=== PATIENT | male | born 1950 | race Caucasian/White ===

== ENCOUNTER → 2016-10-06 | Outpatient (CLI) | payer OTHER ==
[~2016-10-06] MED LIST: ACET-24 PO; ALLO100T PO; CLC6 PO; COLC0.6T54 PO; CYCL5TAB PO; DOCU-94 PO; ENOX40IN SQ; FEBU40TA PO; GABA-112 PO; HYDR-4079 PO; LEVO1TAB33 PO; METO25TA3 PO; NTRC PO; OXYC1TAB3 PO; PRED10TA PO; RXC5 PO; SULF800T23 PO; ULT/50 PO; WARF10TA4 PO; WARF7.5T4 PO
--- NOTE | 2016-10-06 12:54 | DIAGNOSTIC IMAGING REPORT ---
LEFT KNEE 2 VIEWS CLINICAL HISTORY: Left hip pain. Recent fall. FINDINGS: AP and lateral standing views of the left knee are compared to study dated 12/07/2011. The skeletal structures are osteopenic. No fracture is seen. There is mild degenerative narrowing in the medial and patellofemoral compartments. There are small patellar enthesophytes. A small joint effusion is identified. Prepatellar soft tissue swelling is noted. There is mild atherosclerotic calcification in the popliteal artery. IMPRESSION: 1. Prepatellar soft tissue swelling and small joint effusion. No acute bony abnormality is identified. 2. Osteopenia and mild arthritic change as above. Electronically signed by: Harvey Bunch M.D. 10/06/2016 12:52 PM Dictated Date/Time: 10/06/2016 12:51 PM
== END | disposition home or self-care (01) ==
LOC: C.RADBC 12:15
PROVIDERS: ATTEND Family Medicine
DX: M25.562 Pain in left knee (principal); M85.862 Other specified disorders of bone density and structure, left lower leg; M79.89 Other specified soft tissue disorders

== ENCOUNTER → 2016-12-05 | Outpatient (CLI) | payer OTHER ==
[~2016-12-05] MED LIST changes: +CPR500 PO; +FLV1 PO; +FRRS300 PO; +VTMB12 PO
[2016-12-05 17:01] LABS: BASO % 0.4 %; BASO ABS # 0.06 K/uL (0-0.2); COMPLETE YES; EOS % 1.7 %; HEMATOCRIT 42.4 % (42-52); LYMPH % 16.6 %; LYMPH ABS # 2.43 K/uL (1.2-3.4); MEAN CELL VOLUME 88.7 fL (80-100); MEAN CORPUSCULAR HEMOGLOBIN 29.5 pg (25-34); MEAN CORPUSCULAR HGB CONC 33.3 g/dl (32-36); MEAN PLATELET VOLUME 9.8 fL (7.4-10.4); MONO % 15.4 %; NEUT % 63.9 %; PLATELET COUNT 426 K/uL (130-400); RED BLOOD COUNT 4.78 M/uL (4.7-6.1)
[2016-12-05 17:09] LABS: INR 1.7 (0.9-1.1); PROTHROMBIN TIME (PATIENT) 18.6 SECONDS (9.0-12.0)
[2016-12-05 17:12] LABS: ALT/SGPT 29 U/L (12-78); BLOOD UREA NITROGEN 15 mg/dl (7-18); BUN/CREATININE RATIO 11.3 (10-20); CALCIUM 9.4 mg/dl (8.5-10.1); CARBON DIOXIDE 28 mmol/L (21-32); CHLORIDE 98 mmol/L (98-107); GLUCOSE 107 mg/dl (70-99); POTASSIUM 4.5 mmol/L (3.5-5.1); SODIUM 135 mmol/L (136-145)
[2016-12-05 17:15] LABS: ALB/GLOB RATIO 0.5 (0.9-2); ALKALINE PHOSPHATASE 144 U/L (45-117); AST/SGOT 22 U/L (15-37)
[2016-12-05 17:20] LABS: URINE APPEARANCE TURBID (CLEAR); URINE COLOR DK YELLOW; URINE EPITHELIAL CELL AUTO >30 /lpf (0-5); URINE NITRITE NEG (NEG); URINE PH 5.5 (4.5-7.5); URINE SPECIFIC GRAVITY 1.025 (1.000-1.030); UROBILINOGEN NEG (NEG)
[2016-12-05 17:40] LABS: MANUAL MICROSCOPIC REQUIRED? NO; REVIEW REQ? NO; URINE BILIRUBIN NEG (NEG)
== END | disposition home or self-care (01) ==
LOC: C.LABBC 14:06
PROVIDERS: ATTEND Family Medicine
DX: R35.0 Frequency of micturition (principal); R53.83 Other fatigue; I48.91 Unspecified atrial fibrillation

== ENCOUNTER 2016-12-07 15:17 | Inpatient (IN) | payer OTHER ==
[~2016-12-07] VITALS: Ht 193 cm; Wt 116.0 kg
[~2016-12-07 15:17] MED LIST changes: -ACET-24 PO; -ALLO100T PO; -CLC6 PO; -COLC0.6T54 PO; -CPR500 PO; -CYCL5TAB PO; -DOCU-94 PO; -ENOX40IN SQ; -FEBU40TA PO; -FLV1 PO; -FRRS300 PO; -PRED10TA PO; -RXC5 PO; -SULF800T23 PO; -VTMB12 PO
--- NOTE | 2016-12-07 16:47 | DIAGNOSTIC IMAGING REPORT ---
RIGHT ANKLE 3 VIEWS CLINICAL HISTORY: Right leg pain and swelling. Erythema. FINDINGS: 3 views of the right ankle are compared to study dated 03/17/2009. The skeletal structures are osteopenic. No fracture is seen. The ankle mortise is intact. Mild degenerative spurring is seen along the dorsal aspect of the tarsal bones. Soft tissue edema is present in the right lower extremity. An ankle joint effusion is suspected. IMPRESSION: Soft tissue swelling and joint effusion. No acute bony abnormality is identified in the right ankle. Electronically signed by: Harvey Bunch M.D. 12/07/2016 4:46 PM Dictated Date/Time: 12/07/2016 4:45 PM
[2016-12-07 17:20] LABS: BASO % 0.3 %; BASO ABS # 0.04 K/uL (0-0.2); COMPLETE YES; EOS % 1.8 %; HEMATOCRIT 40.6 % (42-52); IG% 1.2 %; LYMPH ABS # 1.98 K/uL (1.2-3.4); MEAN CELL VOLUME 89.2 fL (80-100); MEAN CORPUSCULAR HEMOGLOBIN 31.2 pg (25-34); MEAN PLATELET VOLUME 9.5 fL (7.4-10.4); MONO % 13.5 %; NEUT % 70.2 %; PLATELET COUNT 427 K/uL (130-400); RED BLOOD COUNT 4.55 M/uL (4.7-6.1); WHITE BLOOD COUNT 15.21 K/uL (4.8-10.8)
[2016-12-07 17:25] LABS: INR 2.4 (0.9-1.1); PARTIAL THROMBOPLASTIN RATIO 1.5; PROTHROMBIN TIME (PATIENT) 26.1 SECONDS (9.0-12.0)
[2016-12-07 17:51] LABS: ALB/GLOB RATIO 0.5 (0.9-2); BUN/CREATININE RATIO 11.6 (10-20); CALCIUM 10.2 mg/dl (8.5-10.1); CREATININE 1.4 mg/dl (0.60-1.40); MAGNESIUM 2.3 mg/dl (1.8-2.4); POTASSIUM 4.1 mmol/L (3.5-5.1); URIC ACID 5.7 mg/dl (2.6-7.2)
--- NOTE | 2016-12-07 18:07 | EMERGENCY ROOM VISIT NOTE ---
History First contact with patient: 15:56 Chief Complaint: SWELLING TO EXTREMITY Stated Complaint: SWELLING TO RT FOOT AND CALF History of Present Illness The patient is a 66 year old male who presents to the Emergency Department by private vehicle for evaluation of his RIGHT ankle and calf swelling. 2 weeks ago, the patient was admitted at [facility] in [place] for a hernia repair. He had an open inguinal hernia repaired without issue. He was discharged the next day and had no follow-up issues. This past he was seen at his orthopedist, Dr. Rosales, and interestingly, he reports feeling tired and rundown. He had no specific symptoms, just felt very sleepy, drowsy, tired. He had no headaches, dizziness, light headedness, blurred vision, double vision , nausea, or chest pain symptoms. He ended up following up on Monday with his primary care provider. He had blood work performed. He had elevation of his white blood cell count and was called in an antibiotic. He has taken 3 doses of Levaquin. After taking her first dose of Levaquin he developed redness and pain to the RIGHT ankle. He has had swelling with pain radiating up the back of his calf. He reports increasing pain with ambulation. He has had subjective fevers. He denies any numbness or tingling into his toes. He does report a history of gout. He has never had Levaquin that he was able to remember. The patient denies any current headaches, dizziness, lightheadedness , chest pain, palpitations, short of breath, abdominal pain, incisional redness , incisional drainage, hematuria, or dysuria. He rates his current discomfort as a 9/10. He is tried nothing [id number] for his symptoms. The patient also reports a significant past medical history for pulmonary embolism in 2011. He is currently anticoagulated with Coumadin. His medications were discontinued prior to the procedure, however, and he did not use his Lovenox as he was unable to afford the prescription. He did continue to take his Coumadin though. Review of Systems A complete 10-point Review of Systems was discussed with the patient, with pertinent positives and negatives listed in the History of Present Illness. All remaining Review of Systems questions can be considered negative unless otherwise specified. Past Medical/Surgical History Medical Problems: (1) LLE DVT, hypoxia (2) svt Social History Smoking Status: Never Smoker Smokeless Tobacco Use: No Alcohol Use: none Drug Use: none Marital Status: Housing Status: lives with family Occupation Status: employed Current/Historical Medications Scheduled Gabapentin (Neurontin), 300 MG PO HS Levofloxacin (Levaquin), 500 MG PO DAILY Metoprolol Succinate (Toprol Xl), 25 MG PO BID Oxycodone Ir (Roxicodone Ir), 5 MG PO TID Warfarin Sod (Jantoven), 7.5 MG PO 5XWK Warfarin Sod (Jantoven), 10 MG PO 2XWK Scheduled PRN Hydrocodone/Acetaminophen 10MG/325MG (Dauphin 10MG/325MG), 1-2 TABS PO Q6H PRN for Pain Allergies Coded Allergies: Iron (Verified Adverse Reaction, Unknown, TACHYCARDIA, 12/07/16) Physical Exam Vital Signs Date Time Temp Pulse Resp B/P Pulse Ox O2 Delivery O2 Flow Rate FiO2 12/07/16 18:46 79 16 117/72 97 Room Air 12/07/16 15:21 36.3 94 18 130/72 98 Room Air Pain Rating (0-10): 9 Physical Exam VITAL SIGNS - Vital signs and nursing notes were reviewed. GENERAL - 66-year-old male appearing his stated age and in noticeable discomfort throughout the exam. HEART - RRR w/ normal S1/S2. No murmurs, rubs, or gallops appreciated. LUNGS - CTA bilaterally. No wheezes, rales, or rhonchi appreciated. MUSCULOSKELETAL - RIGHT ankle with Moderate erythema and edema overlying the lateral malleolus and extending up the posterior portion of the calf over the Achilles. Full range of motion of the RIGHT foot and ankle appreciated with +5/ 5 strength noted bilaterally. NEUROLOGIC/VASCULAR - Neurovascularly intact distally with +3/5 dorsalis pedis pulses palpated bilaterally. Normal sensation to light and sharp touch appreciated distally. Medical Decision & Procedures ER Provider Diagnostic Interpretation: Radiological imaging and reports were reviewed by myself. Radiologist's Interpretation as follows: RIGHT ANKLE 3 VIEWS CLINICAL HISTORY: Right leg pain and swelling. Erythema. FINDINGS: 3 views of the right ankle are compared to study dated 03/17/2009. The skeletal structures are osteopenic. No fracture is seen. The ankle mortise is intact. Mild degenerative spurring is seen along the dorsal aspect of the tarsal bones. Soft tissue edema is present in the right lower extremity. An ankle joint effusion is suspected. IMPRESSION: Soft tissue swelling and joint effusion. No acute bony abnormality is identified in the right ankle. RIGHT LOWER EXTREMITY ULTRASOUND CLINICAL HISTORY: Right lower extremity pain and swelling. Evaluate Achilles. COMPARISON STUDY: No previous studies for comparison. FINDINGS: Sonography of the right Achilles tendon demonstrated no abnormality. A similar appearance of the left Achilles tendon was noted. No mass or fluid is identified. IMPRESSION: No sonographic abnormality of the right Achilles tendon identified. RIGHT LOWER EXTREMITY VENOUS DOPPLER CLINICAL HISTORY: Right lower extremity pain, swelling and redness. COMPARISON STUDY: Bilateral lower extremity venous Doppler June 02, 2012. TECHNIQUE: Sonography of the deep venous system of the right lower extremity was performed. Compression and augmentation were evaluated. FINDINGS: There was deep venous thrombus within the right femoral and popliteal veins. This thrombus is age indeterminate. There was also thrombus within the right posterior tibial vein. IMPRESSION: Deep venous thrombus within the right femoral, popliteal and posterior tibial veins. Laboratory Results 12/07/16 16:50 Red Blood Count 4.55, Mean Corpuscular Volume 89.2, Mean Corpuscular Hemoglobin 31.2, Mean Corpuscular Hemoglobin Concent 35.0, Mean Platelet Volume 9.5, Neutrophils (%) (Auto) 70.2, Lymphocytes (%) (Auto) 13.0, Monocytes (%) (Auto) 13.5, Eosinophils (%) (Auto) 1.8, Basophils (%) (Auto) 0.3, Neutrophils # (Auto ) 10.68, Lymphocytes # (Auto) 1.98, Monocytes # (Auto) 2.06, Eosinophils # (Auto ) 0.27, Basophils # (Auto) 0.04 12/07/16 16:50 Test 12/07/16 16:50 12/07/16 17:03 12/07/16 18:30 White Blood Count 15.21 K/uL (4.8-10.8) Red Blood Count 4.55 M/uL (4.7-6.1) Hemoglobin 14.2 g/dL (14.0-18.0) Hematocrit 40.6 % (42-52) Mean Corpuscular Volume 89.2 fL (80-100) Mean Corpuscular Hemoglobin 31.2 pg (25-34) Mean Corpuscular Hemoglobin Concent 35.0 g/dl (32-36) Platelet Count 427 K/uL (130-400) Mean Platelet Volume 9.5 fL (7.4-10.4) Neutrophils (%) (Auto) 70.2 % Lymphocytes (%) (Auto) 13.0 % Monocytes (%) (Auto) 13.5 % Eosinophils (%) (Auto) 1.8 % Basophils (%) (Auto) 0.3 % Neutrophils # (Auto) 10.68 K/uL (1.4-6.5) Lymphocytes # (Auto) 1.98 K/uL (1.2-3.4) Monocytes # (Auto) 2.06 K/uL (0.11-0.59) Eosinophils # (Auto) 0.27 K/uL (0-0.5) Basophils # (Auto) 0.04 K/uL (0-0.2) RDW Standard Deviation 42.4 fL (36.4-46.3) RDW Coefficient of Variation 13.0 % (11.5-14.5) Immature Granulocyte % (Auto) 1.2 % Immature Granulocyte # (Auto) 0.18 K/uL (0.00-0.02) Erythrocyte Sedimentation Rate 72 mm/hr (0-14) Prothrombin Time 26.1 SECONDS (9.0-12.0) Prothromb Time International Ratio 2.4 (0.9-1.1) Activated Partial Thromboplast Time 39.4 SECONDS (21.0-31.0) Partial Thromboplastin Ratio 1.5 Anion Gap 8.0 mmol/L (3-11) Est Creatinine Clear Calc Drug Dose 71.3 ml/min Estimated GFR () 59.8 Estimated GFR (Non- 51.6 BUN/Creatinine Ratio 11.6 (10-20) Uric Acid 5.7 mg/dl (2.6-7.2) Calcium Level 10.2 mg/dl (8.5-10.1) Magnesium Level 2.3 mg/dl (1.8-2.4) Total Bilirubin 0.5 mg/dl (0.2-1) Aspartate Amino Transf (AST/SGOT) 18 U/L (15-37) Alanine Aminotransferase (ALT/SGPT) 25 U/L (12-78) Alkaline Phosphatase 133 U/L (45-117) C-Reactive Protein 17.00 mg/dl (0-0.29) Total Protein 8.2 gm/dl (6.4-8.2) Albumin 2.7 gm/dl (3.4-5.0) Globulin 5.5 gm/dl (2.5-4.0) Albumin/Globulin Ratio 0.5 (0.9-2) Lyme Disease IgG Antibody NEG (NEG) Bedside Lactic Acid Venous 1.21 mmol/L (0.90-1.70) Urine Color DK YELLOW Urine Appearance CLEAR (CLEAR) Urine pH 5.0 (4.5-7.5) Urine Specific [place] 1.028 (1.000-1.030) Urine Protein 1+ (NEG) Urine Glucose (UA) NEG (NEG) Urine Ketones NEG (NEG) Urine Occult Blood 2+ (NEG) Urine Nitrite NEG (NEG) Urine Bilirubin NEG (NEG) Urine Urobilinogen NEG (NEG) Urine Leukocyte Esterase NEG (NEG) Urine WBC (Auto) 1-5 /hpf (0-5) Urine RBC (Auto) 5-10 /hpf (0-4) Urine Hyaline Casts (Auto) 1-5 /lpf (0-5) Urine Epithelial Cells (Auto) 10-20 /lpf (0-5) Urine Bacteria (Auto) NEG (NEG) Medications Administered Medications (Trade) Dose Ordered Sig/Gege Route Start Time Stop Time Status Last Admin Dose Admin Sodium Chloride (Nss 1000ml) 1,000 ml @ 200 mls/hr Q5H STAT IV 12/07/16 18:19 12/07/16 20:11 DC 12/07/16 18:41 200 MLS/HR Vancomycin HCl (Vancomycin 1gm/ 270ml Nss) 1 gm NOW STAT IV 12/07/16 18:19 12/07/16 18:23 DC 12/07/16 18:42 1 GM Ceftriaxone Sodium (Rocephin Inj) 1 gm NOW STAT IV 12/07/16 18:24 12/07/16 18:25 DC 12/07/16 18:40 1 GM ED Course Patient was seen and evaluated by myself. Labs were drawn, saline lock in place. Patient was hydrated with normal saline at a rate of 200 mL per hour. X -ray of the ankle and ultrasound of the RIGHT lower extremity were obtained. Laboratory results demonstrate a moderate leukocytosis of greater than 15,000. The patient is not anemic. His ESR and CRP are significantly elevated. Point- of-care lactic acid was negative. INR was therapeutic at 2.4. Lyme serology was equivocally positive. Patient was reevaluated. Imaging results above. Laboratory results and imaging studies were reviewed with the patient who acknowledges understanding. He was placed on IV Rocephin as well as IV vancomycin. Case was discussed with my attending physician who had apparently evaluated the patient and agrees with diagnostic approach treatment plan. CT of the chest was obtained. [facility]. Patient admitted in stable condition. Medical Decision Given the patient's presentation and stated complaint, I did elect to perform the above-mentioned workup. The patient resents today with pain, redness, and swelling to the RIGHT ankle and Achilles area. My diagnosis, concern was certainly for acute cellulitis as well as septic arthritis. In addition, I question if the patient was experiencing an acute tendinopathy from Levaquin use. Patient did have a moderate leukocytosis as well as elevation of ESR and CRP. Uric acid is not elevated. He does have small joint effusion. Lyme's complete positive. The patient will be treated with IV vancomycin as well as Rocephin to cover MRSA as well as typical sterile floor and Lyme. He was found to have a large DVT. Because of this, a CTA of the chest was obtained. He is currently anticoagulated, however. Of concern, the patient was drowsy and tired over the first few days of the week. The question is if the patient was acutely hypoxic secondary to PE after surgical intervention. Regardless, the patient will be admitted for further evaluation and management. He has been on antibiotics without relief of symptoms over the last few days. Patient was admitted for failed outpatient management. Patient admitted in stable condition. In the evaluation and treatments patient, the following differential diagnoses were considered: Cellulitis, dermatitis, septic arthritis, foreign body, PE, amongst others. Impression Primary Impression: Cellulitis of right ankle Additional Impressions: DVT, lower extremity Positive Lyme disease serology Departure Information Dispostion Admitted as an inpatient Condition GOOD Referrals Surinder Fagna D.O.Int.Med. (PCP) Patient Instructions My [facility] Problem Qualifiers Additional Impressions: DVT, lower extremity Affected thrombotic vein of extremity: unspecified vein of extremity Laterality: right Chronicity: acute Qualified Codes: I82.401 - Acute embolism and thrombosis of unspecified deep veins of right lower extremity
--- NOTE | 2016-12-07 18:08 | DIAGNOSTIC IMAGING REPORT ---
RIGHT LOWER EXTREMITY ULTRASOUND CLINICAL HISTORY: Right lower extremity pain and swelling. Evaluate Achilles. COMPARISON STUDY: No previous studies for comparison. FINDINGS: Sonography of the right Achilles tendon demonstrated no abnormality. A similar appearance of the left Achilles tendon was noted. No mass or fluid is identified. IMPRESSION: No sonographic abnormality of the right Achilles tendon identified. Electronically signed by: Farhat Jonas M.D. 12/07/2016 6:06 PM Dictated Date/Time: 12/07/2016 6:06 PM
[2016-12-07 18:15] LABS: LYME DISEASE AB IGG NEG (NEG); LYME DISEASE AB IGM EQUIVOCAL (NEG)
[2016-12-07] MEDS ORDERED: SODIUM CHLORIDE 0.9% 1000ML 1,000 ML IV STA (18:19)
[2016-12-07] MEDS ORDERED: VANCOMYCIN 1GM/270ML NSS IV STA (18:19)
[2016-12-07] MEDS ORDERED: CEFTRIAXONE SOD INJ 1 GM ADDVIAL IV STA (18:24)
[2016-12-07 18:52] LABS: URINE APPEARANCE CLEAR (CLEAR); URINE BILIRUBIN NEG (NEG); URINE COLOR DK YELLOW; URINE NITRITE NEG (NEG); URINE SPECIFIC GRAVITY 1.028 (1.000-1.030); UROBILINOGEN NEG (NEG); ZZUR CULT IF INDIC CLEAN CATCH NO
[2016-12-07 18:54] LABS: MANUAL MICROSCOPIC REQUIRED? NO; REVIEW REQ? NO
[2016-12-07] MEDS ORDERED: POLYETHYLENE (MIRALAX) 17 GM PACK PO PRN (19:00)
[2016-12-07] MEDS ORDERED: ONDANSETRON INJ 2 MG/ML 2 ML VIAL IV PRN (19:00)
[2016-12-07] MEDS ORDERED: ACETAMINOPHEN 325 MG TAB PO PRN (19:00)
[2016-12-07] MEDS ORDERED: OPTIRAY 320 IV PRN (19:00)
[2016-12-07] MEDS ORDERED: TRAMADOL HCL 50 MG TAB PO PRN (19:00)
[2016-12-07] MEDS ORDERED: HYDROCODONE/ACETAMI 10/325 TAB PO PRN (19:00)
[2016-12-07] MEDS: OXYCODONE HCL IR 5 MG TAB (IMMEDIATE RELEASE) PO SCH (20:00)
[2016-12-07] MEDS: COLCHICINE 0.6 MG TAB PO SCH (20:00)
[2016-12-07] MEDS: METOPROLOL SUCC 25MG EXT REL TAB PO SCH (20:00)
--- NOTE | 2016-12-07 20:02 | DIAGNOSTIC IMAGING REPORT ---
CT ANGIOGRAPHY OF THE CHEST, PULMONARY EMBOLUS PROTOCOL CLINICAL HISTORY: Right lower extremity swelling. COMPARISON STUDY: Chest CT January 12, 2012. TECHNIQUE: Following IV administration of Optiray-320, helical axial images of the chest were obtained utilizing the pulmonary embolus protocol. Maximal intensity projections and sagittal and coronal reformats were viewed on an independent 3D workstation. IV contrast was administered without complication. CT DOSE: 873.47 mGy.cm FINDINGS: This exam is significantly compromised by respiratory motion artifact. No central or lobar pulmonary emboli are identified. The segmental and subsegmental vessels are suboptimally assessed due to respiratory motion. The heart is mildly enlarged. Mild dilatation of the ascending aorta is unchanged since exam of January 12, 2012. The ascending aorta measures 4.4 cm. There is no dissection within the thoracic aorta. There is no thoracic lymphadenopathy. Moderate to marked elevation of the left hemidiaphragm is noted with a small hiatal hernia. Ground glass opacities favor atelectasis. Lungs are suboptimally assessed due to respiratory motion. There is no pneumothorax or pleural effusion. IMPRESSION: 1. No pulmonary emboli identified although exam moderately compromised by respiratory motion. 2. Moderate to marked elevation of the left hemidiaphragm. 3. Ground glass opacities which favor atelectasis. 4. Stable moderate cardiomegaly and mild dilatation of the ascending aorta. No thoracic aortic dissection. Electronically signed by: Farhat Jonas M.D. 12/07/2016 8:01 PM Dictated Date/Time: 12/07/2016 7:55 PM
--- NOTE | 2016-12-07 20:05 | Pharmacy Progress Note ---
Pharmacy Antibiotic Consult Date of Service: Dec 07, 2016. Pharmacy Dosing Scope Pharmacy is consulted to initiate Vancomycin IV dosing therapy, order appropriate labs and adjust drug dose/frequency. Subjective The patient is a 66 year old male admitted on 12/07/16 with swelling of right foot/calf. Objective Height (Feet): 6 Height (Inches): 4.00 Weight (Kilograms): 116.000 Lab Results (24hrs): Laboratory Tests Test 12/07/16 16:50 BUN/Creatinine Ratio 11.6 Blood Urea Nitrogen 16 mg/dl Creatinine 1.40 mg/dl White Blood Count 15.21 K/uL Red Blood Count 4.55 M/uL Hemoglobin 14.2 g/dL Hematocrit 40.6 % Mean Corpuscular Volume 89.2 fL Mean Corpuscular Hemoglobin 31.2 pg Mean Corpuscular Hemoglobin Concent 35.0 g/dl Platelet Count 427 K/uL Mean Platelet Volume 9.5 fL Neutrophils (%) (Auto) 70.2 % Lymphocytes (%) (Auto) 13.0 % Monocytes (%) (Auto) 13.5 % Eosinophils (%) (Auto) 1.8 % Basophils (%) (Auto) 0.3 % Neutrophils # (Auto) 10.68 K/uL Lymphocytes # (Auto) 1.98 K/uL Monocytes # (Auto) 2.06 K/uL Eosinophils # (Auto) 0.27 K/uL Basophils # (Auto) 0.04 K/uL Micro Results: Item Value Date Time Blood Culture Received 12/07/16 1841 Blood Pending Blood Culture Received 12/07/16 1835 Blood Pending Recent Pertinent Medications Item Value Date Time Ceftriaxone Sodium 1 gm 12/08/16 0900 (Rocephin Inj) DAILY/IV Assessment & Plan ASSESSMENT: * 66 yo M presents with right ankle/ calf swelling * Pt recently was at [facility] for hernia repair without complication * On Monday he had follow-up labs drawn which showed increase in WBC- he was initiated on Levaquin * After one dose he reports presenting symptoms (ankle/calf swelling); he has taken a total of three doses [employer]ELOPER * He has been initiated on broad spectrum antibiotics: Vancomycin and Zosyn IV * Blood cultures pending PLAN: * Vancomycin 1000 mg IV X 1 given in ED (not sufficient loading dose) * Initiate maintenance dosing immediately upon admission to the floor * Vancomycin 1750 mg IV every 12 hours * Goal trough level estimate: between 15 - 20 mcg/mL. (cellulitis- r/o systemic infection with blood cultures- if so, aim for ~15 mcg/mL) * A trough level has been ordered for: prior to the 4th overall dose-a dose prior to steady state. Pharmacy will continue to follow and will adjust dose/frequency as necessary. Thank you
[2016-12-07] MEDS: VANCOMYCIN INJ 1,750 MG in SODIUM CHLORIDE 0.9% 500ML 500 ML IV SCH (20:42)
[2016-12-07] MEDS: GABAPENTIN 300 MG CAP PO SCH (22:12)
--- NOTE | 2016-12-07 22:37 | History and Physical ---
History & Physical Date & Time of Service: Dec 07, 2016 at 22:26 Chief Complaint: Lle Dvt, Hypoxia Primary Care Physician: Surinder Fagan D.O.Int.Med. History of Present Illness Source: patient The patient is a 66-year-old male comes emergency department with complaint of right ankle and calf swelling, pain and redness. He underwent a hernia repair at [facility] 2 weeks ago without incident. Then saw his orthopedist Dr. Rosales 6 days ago for possible future hip surgery. He saw his PCP 2 days ago for symptoms of being very sleepy, drowsy and tired, had laboratory showing elevated white blood cell count, and was started on oral Levaquin which she has taken 3 doses so far. He first noticed pain in his right ankle after taking the Levaquin first dose. Has worsened since that time he's had a pulmonary embolism in 2011 which is currently on Coumadin. The Coumadin was discontinued prior to his procedure 2 weeks ago, and did not have a Lovenox bridge after surgery, but did resume his Coumadin. Social History Smoking Status: Never Smoker Smokeless Tobacco Use: No Drug Use: none Marital Status: Housing status: lives with family Occupational Status: employed Immunizations History of Influenza Vaccine: N/A History of Tetanus Vaccine?: No History of Pneumococcal: No History of Hepatitis B Vaccine: Unknown Allergies Coded Allergies: Iron (Verified Adverse Reaction, Unknown, TACHYCARDIA, 12/07/16) Home Medications Scheduled Gabapentin (Neurontin), 300 MG PO HS Levofloxacin (Levaquin), 500 MG PO DAILY Metoprolol Succinate (Toprol Xl), 25 MG PO BID Oxycodone Ir (Roxicodone Ir), 5 MG PO TID Warfarin Sod (Jantoven), 7.5 MG PO 5XWK Warfarin Sod (Jantoven), 10 MG PO 2XWK Scheduled PRN Hydrocodone/Acetaminophen 10MG/325MG ([place] 10MG/325MG), 1-2 TABS PO Q6H PRN for Pain Review of Systems The patient denies chest pain, palpitations, shortness of breath, cough, lower extremity swelling, vision change, hearing change, sore throat, fevers, chills, sweats, vomiting, abdominal pain, pelvic pain, blood in urine or stool, dysuria , urinary frequency or urgency, lightheadedness, dizziness, headache, memory loss, rash, abnormal bruising or bleeding, imbalance, focal weakness, numbness or tingling in arms, back or neck pain, night sweats, or allergy symptoms. The review of systems is otherwise negative other than for that already noted above, and at least 10 systems have been reviewed. Physical Exam Vital Signs Date Time Temp Pulse Resp B/P Pulse Ox O2 Delivery O2 Flow Rate FiO2 12/07/16 19:32 36.3 79 16 117/72 97 12/07/16 18:46 79 16 117/72 97 Room Air 12/07/16 15:21 36.3 94 18 130/72 98 Room Air The patient is awake, well-developed and adequately nourished, alert and oriented 3, normocephalic and atraumatic, lying in bed and in no acute distress. HEENT--PERRL, EOMI, mucous membranes and oropharynx dry. Neck--supple, no JVD or bruits, thyroid normal, trachea midline, no adenopathy. Heart--normal S1 and S2, no extra beats, no murmurs, rubs or gallops. Lungs--clear bilaterally with good air movement, no respiratory distress, no accessory muscle use. Abdomen--normal bowel sounds and soft, nontender and nondistended, no hernias or masses, no organomegaly. Extremities--left lower extremity no cyanosis, clubbing or edema. There are good distal pulses b/l. Right lower extremity about 1-1/2 times increase in diameter of, but no pitting edema pretibially. Right ankle with moderate erythema, pain to palpation and warmth and 2+ pitting edema. Dermatologic--normal skin turgor, normal color, warm and dry, no abnormal lymph nodes, no rash, Except as above. Neurologic--cranial nerves II through XII grossly intact, motor and sensory examination normal. Rheumatologic--normal range of motion, nontender, muscles and joints. Except for right ankle with decreased flexion and extension. Psychiatric--normal affect. Diagnostics Laboratory Results Results Past 24 Hours Test 12/07/16 16:50 12/07/16 17:03 12/07/16 18:30 Range/Units White Blood Count 15.21 4.8-10.8 K/uL Red Blood Count 4.55 4.7-6.1 M/uL Hemoglobin 14.2 14.0-18.0 g/dL Hematocrit 40.6 42-52 % Mean Corpuscular Volume 89.2 80-100 fL Mean Corpuscular Hemoglobin 31.2 25-34 pg Mean Corpuscular Hemoglobin Concent 35.0 32-36 g/dl Platelet Count 427 130-400 K/uL Mean Platelet Volume 9.5 7.4-10.4 fL Neutrophils (%) (Auto) 70.2 % Lymphocytes (%) (Auto) 13.0 % Monocytes (%) (Auto) 13.5 % Eosinophils (%) (Auto) 1.8 % Basophils (%) (Auto) 0.3 % Neutrophils # (Auto) 10.68 1.4-6.5 K/uL Lymphocytes # (Auto) 1.98 1.2-3.4 K/uL Monocytes # (Auto) 2.06 0.11-0.59 K/uL Eosinophils # (Auto) 0.27 0-0.5 K/uL Basophils # (Auto) 0.04 0-0.2 K/uL RDW Standard Deviation 42.4 36.4-46.3 fL RDW Coefficient of Variation 13.0 11.5-14.5 % Immature Granulocyte % (Auto) 1.2 % Immature Granulocyte # (Auto) 0.18 0.00-0.02 K/uL Erythrocyte Sedimentation Rate 72 0-14 mm/hr Prothrombin Time 26.1 9.0-12.0 SECONDS Prothromb Time International Ratio 2.4 0.9-1.1 Activated Partial Thromboplast Time 39.4 21.0-31.0 SECONDS Partial Thromboplastin Ratio 1.5 Sodium Level 135 136-145 mmol/L Potassium Level 4.1 3.5-5.1 mmol/L Chloride Level 100 98-107 mmol/L Carbon Dioxide Level 27 21-32 mmol/L Anion Gap 8.0 3-11 mmol/L Blood Urea Nitrogen 16 7-18 mg/dl Creatinine 1.40 0.60-1.40 mg/dl Est Creatinine Clear Calc Drug Dose 71.3 ml/min Estimated GFR () 59.8 Estimated GFR (Non- 51.6 BUN/Creatinine Ratio 11.6 10-20 Random Glucose 108 70-99 mg/dl Uric Acid 5.7 2.6-7.2 mg/dl Calcium Level 10.2 8.5-10.1 mg/dl Magnesium Level 2.3 1.8-2.4 mg/dl Total Bilirubin 0.5 0.2-1 mg/dl Aspartate Amino Transf (AST/SGOT) 18 15-37 U/L Alanine Aminotransferase (ALT/SGPT) 25 12-78 U/L Alkaline Phosphatase 133 45-117 U/L C-Reactive Protein 17.00 0-0.29 mg/dl Total Protein 8.2 6.4-8.2 gm/dl Albumin 2.7 3.4-5.0 gm/dl Globulin 5.5 2.5-4.0 gm/dl Albumin/Globulin Ratio 0.5 0.9-2 Lyme Disease IgG Antibody NEG NEG Lyme Disease IgM Antibody EQUIVOCAL NEG Bedside Lactic Acid Venous 1.21 0.90-1.70 mmol/L Urine Color DK YELLOW Urine Appearance CLEAR CLEAR Urine pH 5.0 4.5-7.5 Urine Specific [place] 1.028 1.000-1.030 Urine Protein 1+ NEG Urine Glucose (UA) NEG NEG Urine Ketones NEG NEG Urine Occult Blood 2+ NEG Urine Nitrite NEG NEG Urine Bilirubin NEG NEG Urine Urobilinogen NEG NEG Urine Leukocyte Esterase NEG NEG Urine WBC (Auto) 1-5 0-5 /hpf Urine RBC (Auto) 5-10 0-4 /hpf Urine Hyaline Casts (Auto) 1-5 0-5 /lpf Urine Epithelial Cells (Auto) 10-20 0-5 /lpf Urine Bacteria (Auto) NEG NEG Microbiology Results 12/07/16 Blood Culture, Received Pending 12/07/16 Blood Culture, Received Pending Diagnostic Radiology RIGHT LOWER EXTREMITY VENOUS DOPPLER CLINICAL HISTORY: Right lower extremity pain, swelling and redness. COMPARISON STUDY: Bilateral lower extremity venous Doppler June 02, 2012. TECHNIQUE: Sonography of the deep venous system of the right lower extremity was performed. Compression and augmentation were evaluated. FINDINGS: There was deep venous thrombus within the right femoral and popliteal veins. This thrombus is age indeterminate. There was also thrombus within the right posterior tibial vein. IMPRESSION: Deep venous thrombus within the right femoral, popliteal and posterior tibial veins. Electronically signed by: Farhat Jonas M.D. 12/07/2016 6:05 PM Dictated Date/Time: 12/07/2016 6:03 PM The status of this report is Signed. Draft = Not yet reviewed or approved by Radiologist. Signed = Reviewed and approved by Radiologist. Patient Name: SHARYN SALEH JR Unit Number: [id number] Dictated: 12/07/161644 Transcribed: 12/07/161644 EV Printed Date/Time: [~ rep prt dt]/[~ rep prt tm] [~ rep ct labl] - [~ rep ct ivnm] [facility] [place] [place] [address] Dictated: 12/07/161644 Transcribed: 12/07/161644 EV Printed Date/Time: [~ rep prt dt]/[~ rep prt tm] [~ rep ct labl] - [~ rep ct ivnm] CLINICAL HISTORY: Right leg pain and swelling. Erythema. FINDINGS: 3 views of the right ankle are compared to study dated 03/17/2009. The skeletal structures are osteopenic. No fracture is seen. The ankle mortise is intact. Mild degenerative spurring is seen along the dorsal aspect of the tarsal bones. Soft tissue edema is present in the right lower extremity. An ankle joint effusion is suspected. IMPRESSION: Soft tissue swelling and joint effusion. No acute bony abnormality is identified in the right ankle. Electronically signed by: Harvey Bunch M.D. 12/07/2016 4:46 PM Dictated Date/Time: 12/07/2016 4:45 PM The status of this report is Signed. Draft = Not yet reviewed or approved by Radiologist. Signed = Reviewed and approved by Radiologist. <AttendingPhy></AttendingPhy> <FamilyPhy>Surinder Fagan D.O.Int.Med.</ FamilyPhy> <PrimaryPhy>Surinder Fagan D.O.Int.Med.</PrimaryPhy> <UnitNumber> [id number]</UnitNumber> <VisitNumber>[id number]</VisitNumber> <PatientName> SHARYN SALEH </PatientName> <DateOfBirth>1950</DateOfBirth> < Location>[facility]</Location> <ServiceDate>12/07/16</ServiceDate> <MNE>ESINDI</MNE> <OrderingPhy>Jhoana, Trever D PA-C</OrderingPhy> <OrderingPhyMNE>f rep ord dr puckett</ OrderingPhyMNE> <DictatingPhyMNE>f rep dict dr puckett</DictatingPhyMNE> <CCListMNE> f rep ct mne</CCListMNE> <AdmittingPhyMNE>f pt admit dr puckett</AdmittingPhyMNE> < AttendingPhyMNE>f pt attend dr puckett</AttendingPhyMNE> <ConsultingPhyMNE>f pt consult dr puckett</ConsultingPhyMNE> <FamilyPhyMNE>f pt fam dr puckett</FamilyPhyMNE> <OtherPhyMNE>f pt other dr puckett</OtherPhyMNE> < PrimaryPhyMNE>f pt prim care dr puckett</PrimaryPhyMNE> <ReferringPhyMNE>f pt referring dr puckett</ReferringPhyMNE> Patient Name: SHARYN SALEH JR Unit Number: [id number] Dictated: 12/07/161805 Transcribed: 12/07/161805 JA Printed Date/Time: [~ rep prt dt]/[~ rep prt tm] [~ rep ct labl] - [~ rep ct ivnm] [facility] Radiology Department [place], [facility]03 Dictated: 12/07/161805 Transcribed: 12/07/161805 JA Printed Date/Time: [~ rep prt dt]/[~ rep prt tm] [~ rep ct labl] - [~ rep ct ivnm] [~ rep ct add3]] RIGHT LOWER EXTREMITY ULTRASOUND CLINICAL HISTORY: Right lower extremity pain and swelling. Evaluate Achilles. COMPARISON STUDY: No previous studies for comparison. FINDINGS: Sonography of the right Achilles tendon demonstrated no abnormality. A similar appearance of the left Achilles tendon was noted. No mass or fluid is identified. IMPRESSION: No sonographic abnormality of the right Achilles tendon identified. Electronically signed by: Farhat Jonas M.D. 12/07/2016 6:06 PM Dictated Date/Time: 12/07/2016 6:06 PM The status of this report is Signed. Draft = Not yet reviewed or approved by Radiologist. Signed = Reviewed and approved by Radiologist. <AttendingPhy></AttendingPhy> <FamilyPhy>Surinder Fagan D.O.Int.Med.</ FamilyPhy> <PrimaryPhy>Surinder Fagan D.O.Int.Med.</PrimaryPhy> <UnitNumber> [id number]</UnitNumber> <VisitNumber>[id number]</VisitNumber> <PatientName> SHARYN SALEH JR</PatientName> <DateOfBirth>1950</DateOfBirth> < Location>[facility]</Location> <ServiceDate>12/07/16</ServiceDate> <MNE>ESINDI</MNE> <OrderingPhy>Trever Ely PA-C</OrderingPhy> <OrderingPhyMNE>f rep ord dr puckett</ OrderingPhyMNE> <DictatingPhyMNE>f rep dict dr puckett</DictatingPhyMNE> <CCListMNE> f rep ct mne</CCListMNE> <AdmittingPhyMNE>f pt admit dr puckett</AdmittingPhyMNE> < AttendingPhyMNE>f pt attend dr puckett</AttendingPhyMNE> <ConsultingPhyMNE>f pt consult dr puckett</ConsultingPhyMNE> <FamilyPhyMNE>f pt fam dr puckett</FamilyPhyMNE> <OtherPhyMNE>f pt other dr puckett</OtherPhyMNE> < PrimaryPhyMNE>f pt prim care dr puckett</PrimaryPhyMNE> <ReferringPhyMNE>f pt referring dr puckett</ReferringPhyMNE> Patient Name: SHARYN SALEH JR Unit Number: [id number] Dictated: 12/07/161954 Transcribed: 12/07/161954 BETHEL Printed Date/Time: [~ rep prt dt]/[~ rep prt tm] [~ rep ct labl] - [~ rep ct ivnm] [facility] [place] [place] [address] Dictated: 12/07/161954 Transcribed: 12/07/161954 JA Printed Date/Time: [~ rep prt dt]/[~ rep prt tm] [~ rep ct labl] - [~ rep ct ivnm] CT ANGIOGRAPHY OF THE CHEST, PULMONARY EMBOLUS PROTOCOL CLINICAL HISTORY: Right lower extremity swelling. COMPARISON STUDY: Chest CT January 12, 2012. TECHNIQUE: Following IV administration of Optiray-320, helical axial images of the chest were obtained utilizing the pulmonary embolus protocol. Maximal intensity projections and sagittal and coronal reformats were viewed on an independent 3D workstation. IV contrast was administered without complication. CT DOSE: 873.47 mGy.cm FINDINGS: This exam is significantly compromised by respiratory motion artifact. No central or lobar pulmonary emboli are identified. The segmental and subsegmental vessels are suboptimally assessed due to respiratory motion. The heart is mildly enlarged. Mild dilatation of the ascending aorta is unchanged since exam of January 12, 2012. The ascending aorta measures 4.4 cm. There is no dissection within the thoracic aorta. There is no thoracic lymphadenopathy. Moderate to marked elevation of the left hemidiaphragm is noted with a small hiatal hernia. Ground glass opacities favor atelectasis. Lungs are suboptimally assessed due to respiratory motion. There is no pneumothorax or pleural effusion. IMPRESSION: 1. No pulmonary emboli identified although exam moderately compromised by respiratory motion. 2. Moderate to marked elevation of the left hemidiaphragm. 3. Ground glass opacities which favor atelectasis. 4. Stable moderate cardiomegaly and mild dilatation of the ascending aorta. No thoracic aortic dissection. Electronically signed by: Farhat Jonas M.D. 12/07/2016 8:01 PM Dictated Date/Time: 12/07/2016 7:55 PM The status of this report is Signed. Draft = Not yet reviewed or approved by Radiologist. Signed = Reviewed and approved by Radiologist. <AttendingPhy>Saeid Guo M.D.</AttendingPhy> <FamilyPhy>Surinder Fagan D.O.Int.Med.</FamilyPhy> <PrimaryPhy>Surinder Fagan D.O.Int.Med.</ PrimaryPhy> <UnitNumber>[id number]</UnitNumber> <VisitNumber>[id number]</ VisitNumber> <PatientName>SHARYN SALEH JR</PatientName> <DateOfBirth>1950</DateOfBirth> <Location>[facility]</Location> <ServiceDate>12/07/16</ ServiceDate> <MNE>ESINDI</MNE> <OrderingPhy>Trever Ely PA-C</OrderingPhy> < OrderingPhyMNE>f rep ord dr puckett</OrderingPhyMNE> <DictatingPhyMNE>f rep dict dr puckett</DictatingPhyMNE> <CCListMNE>f rep ct mne</CCListMNE> <AdmittingPhyMNE>f pt admit dr puckett</AdmittingPhyMNE> <AttendingPhyMNE>f pt attend dr puckett</ AttendingPhyMNE> <ConsultingPhyMNE>f pt consult dr puckett</ConsultingPhyMNE> <FamilyPhyMNE>f pt fam dr puckett</FamilyPhyMNE> <OtherPhyMNE>f pt other dr puckett</OtherPhyMNE> < PrimaryPhyMNE>f pt prim care dr puckett</PrimaryPhyMNE> <ReferringPhyMNE>f pt referring dr puckett</ReferringPhyMNE> Impression Assessment and Plan RLE ankle cellulitis/acute gout flare/positive preliminary positive Lyme IgM ED--the patient was admitted to the medical floor. He decided vancomycin IV and ceftriaxone IV in the emergency department, and these will both be continued. We'll also start colchicine 0.6 moderate grams by mouth twice a day and Solu-Medrol 20 mg IV every 8 hours. Right lower extremity DVT--his initial Doppler that was done in 2011 suggested initial findings of DVT, however, the reading this time specifically mentions involvement of pretibial veins which is not mentioned before. Unclear if this is a persistent DVT, progression of previous DVT, or development of new DVT, as there was no venous Doppler done after the initial diagnostic Doppler to verify clearance. If this is a Coumadin failure, he may need to be changed to another medication such as Xarelto. For tonight, will hold Coumadin, give a single dose of Lovenox 1 mg kilogram subcutaneous, and consult hematology for their opinion. SVT --history continue metoprolol succinate 25 mg by mouth twice a day. Chronic pain--continue oxycodone IR 5 mg by mouth 3 times a day, and gabapentin 3 mg by mouth at bedtime. Level of Care Med/Surg Advanced Directives Existing Advance Directive: No Existing Living Will: No Existing Power of Draw String Knotter: No Resuscitation Status FULL RESUSCITATION VTE Prophylaxis VTE Risk Assessment Done? Y/N: Yes Risk Level: Low Given or contraindicated: Enoxaparin (Lovenox)SQ, Warfarin (Coumadin) Social Service Consult None Apply
[2016-12-07 22:39] VITALS: BP 117/72; TEMP 36.3; O2SAT 96; Ht 193 cm; Wt 116.0 kg
[2016-12-07] MEDS ORDERED: ENOXAPARIN 1 MG/KG SQ SCH (22:45)
[2016-12-07 22:58] VITALS: BP 118/78; PULSE 79; TEMP 36.8; O2SAT 96
[2016-12-07] MEDS ORDERED: ENOXAPARIN 120 MG/0.8 ML SYR SQ ONE (23:00)
[2016-12-07] MEDS: METHYLPREDNISOLONE IV 20 MG in SYRINGE 0 ML IV SCH (23:35)
[2016-12-08] MEDS: ZOLPIDEM TARTRATE 5 MG TAB PO PRN ×2 (02:31→23:40)
[2016-12-08] MEDS: METHYLPREDNISOLONE IV 20 MG in SYRINGE 0 ML IV SCH ×2 (06:23→14:33)
[2016-12-08 07:05] LABS: INR 2.5 (0.9-1.1); PARTIAL THROMBOPLASTIN RATIO 1.7; PROTHROMBIN TIME (PATIENT) 28.2 SECONDS (9.0-12.0)
[2016-12-08 07:22] LABS: BUN/CREATININE RATIO 13.2 (10-20); CALCIUM 9.3 mg/dl (8.5-10.1); CREATININE 1.1 mg/dl (0.60-1.40); POTASSIUM 4.5 mmol/L (3.5-5.1)
[2016-12-08 07:30] VITALS: BP 118/78; PULSE 78; TEMP 36.4; O2SAT 93
[2016-12-08] MEDS ORDERED: CEFTRIAXONE SOD INJ 1 GM ADDVIAL IV SCH (08:00)
[2016-12-08] MEDS: OXYCODONE HCL IR 5 MG TAB (IMMEDIATE RELEASE) PO SCH ×3 (08:13→20:12)
[2016-12-08] MEDS: METOPROLOL SUCC 25MG EXT REL TAB PO SCH ×2 (08:13→20:14)
[2016-12-08] MEDS: COLCHICINE 0.6 MG TAB PO SCH ×2 (08:13→20:12)
[2016-12-08] MEDS: VANCOMYCIN INJ 1,750 MG in SODIUM CHLORIDE 0.9% 500ML 500 ML IV SCH (09:27)
[2016-12-08 09:37] LABS: BASO % 0.2 %; BASO ABS # 0.02 K/uL (0-0.2); COMPLETE YES; EOS % 0.1 %; HEMATOCRIT 36.6 % (42-52); IG% 0.9 %; LYMPH % 8.4 %; LYMPH ABS # 1.08 K/uL (1.2-3.4); MEAN CELL VOLUME 89.7 fL (80-100); MEAN CORPUSCULAR HEMOGLOBIN 31.6 pg (25-34); MEAN CORPUSCULAR HGB CONC 35.2 g/dl (32-36); MEAN PLATELET VOLUME 10.1 fL (7.4-10.4); MONO % 6.3 %; NEUT % 84.1 %; PLATELET COUNT 382 K/uL (130-400); RED BLOOD COUNT 4.08 M/uL (4.7-6.1); WHITE BLOOD COUNT 12.83 K/uL (4.8-10.8)
--- NOTE | 2016-12-08 13:23 | Hospitalist Progress Note ---
Hospitalist Progress Note Date of Service Dec 08, 2016. (Elli Ortiz PA-C) Subjective Pt evaluation today including: conversation w/ patient, physical exam, chart review, lab review, review of studies, conversation w/ child development consultant, review of inpatient medication list Patient notes that the pain in the ankle is much improved from yesterday. Denies any fever or chills. No chest pain or shortness of breath. No problems moving his bowels. No pain at the incision site. Additional Comments: 6 system review negative. Please see pertinent positives in the history of present illness section. (Elli Ortiz PA-C) Objective Vital Signs Date Time Temp Pulse Resp B/P Pulse Ox O2 Delivery O2 Flow Rate FiO2 12/08/16 07:30 Room Air 12/08/16 07:30 36.4 78 18 118/78 93 Room Air 12/08/16 00:00 Room Air 12/07/16 22:58 36.8 79 18 118/78 96 Room Air 12/07/16 22:39 36.3 16 117/72 96 Room Air 12/07/16 19:32 36.3 79 16 117/72 97 12/07/16 18:46 79 16 117/72 97 Room Air 12/07/16 15:21 36.3 94 18 130/72 98 Room Air (Elli Ortiz PA-C) Physical Exam General Appearance: no apparent distress Eyes: EOMI ENT: + pertinent finding (oral mucosa slightly dry) Neck: no JVD Respiratory/Chest: lungs clear Cardiovascular: regular rate, rhythm Abdomen: normal bowel sounds, non tender, soft, + pertinent finding (incision site clean, dry and intact. Steri-Strips present.) Extremities: + pertinent finding (diffuse nonpitting edema noted of the right lower extremity. Erythema and warmth noted to the medial and lateral malleolus. Tenderness to palpation in those areas. No significant pain with flexion or extension of the right ankle. DP pulse +2. Mild erythema also noted of the right fourth digit. No erythema, tenderness or warmth appreciated in the left lower extremity.) Neurologic/Psychiatric: no motor/sensory deficits, oriented x 3 Skin: warm/dry (Elli Ortiz PA-C) Laboratory Results 12/08/16 06:24 Red Blood Count 4.08, Mean Corpuscular Volume 89.7, Mean Corpuscular Hemoglobin 31.6, Mean Corpuscular Hemoglobin Concent 35.2, Mean Platelet Volume 10.1, Neutrophils (%) (Auto) 84.1, Lymphocytes (%) (Auto) 8.4, Monocytes (%) (Auto) 6.3, Eosinophils (%) (Auto) 0.1, Basophils (%) (Auto) 0.2, Neutrophils # (Auto) 10.79, Lymphocytes # (Auto) 1.08, Monocytes # (Auto) 0.81, Eosinophils # (Auto) 0.01, Basophils # (Auto) 0.02 12/08/16 06:24 Test 12/07/16 16:50 12/07/16 17:03 12/07/16 18:30 12/08/16 06:24 Erythrocyte Sedimentation Rate 72 mm/hr (0-14) Uric Acid 5.7 mg/dl (2.6-7.2) Magnesium Level 2.3 mg/dl (1.8-2.4) Total Bilirubin 0.5 mg/dl (0.2-1) Aspartate Amino Transf (AST/SGOT) 18 U/L (15-37) Alanine Aminotransferase (ALT/SGPT) 25 U/L (12-78) Alkaline Phosphatase 133 U/L (45-117) C-Reactive Protein 17.00 mg/dl (0-0.29) Total Protein 8.2 gm/dl (6.4-8.2) Albumin 2.7 gm/dl (3.4-5.0) Globulin 5.5 gm/dl (2.5-4.0) Albumin/Globulin Ratio 0.5 (0.9-2) Lyme Disease IgG Antibody NEG (NEG) Bedside Lactic Acid Venous 1.21 mmol/L (0.90-1.70) Urine Color DK YELLOW Urine Appearance CLEAR (CLEAR) Urine pH 5.0 (4.5-7.5) Urine Specific [place] 1.028 (1.000-1.030) Urine Protein 1+ (NEG) Urine Glucose (UA) NEG (NEG) Urine Ketones NEG (NEG) Urine Occult Blood 2+ (NEG) Urine Nitrite NEG (NEG) Urine Bilirubin NEG (NEG) Urine Urobilinogen NEG (NEG) Urine Leukocyte Esterase NEG (NEG) Urine WBC (Auto) 1-5 /hpf (0-5) Urine RBC (Auto) 5-10 /hpf (0-4) Urine Hyaline Casts (Auto) 1-5 /lpf (0-5) Urine Epithelial Cells (Auto) 10-20 /lpf (0-5) Urine Bacteria (Auto) NEG (NEG) White Blood Count 12.83 K/uL (4.8-10.8) Red Blood Count 4.08 M/uL (4.7-6.1) Hemoglobin 12.9 g/dL (14.0-18.0) Hematocrit 36.6 % (42-52) Mean Corpuscular Volume 89.7 fL (80-100) Mean Corpuscular Hemoglobin 31.6 pg (25-34) Mean Corpuscular Hemoglobin Concent 35.2 g/dl (32-36) Platelet Count 382 K/uL (130-400) Mean Platelet Volume 10.1 fL (7.4-10.4) Neutrophils (%) (Auto) 84.1 % Lymphocytes (%) (Auto) 8.4 % Monocytes (%) (Auto) 6.3 % Eosinophils (%) (Auto) 0.1 % Basophils (%) (Auto) 0.2 % Neutrophils # (Auto) 10.79 K/uL (1.4-6.5) Lymphocytes # (Auto) 1.08 K/uL (1.2-3.4) Monocytes # (Auto) 0.81 K/uL (0.11-0.59) Eosinophils # (Auto) 0.01 K/uL (0-0.5) Basophils # (Auto) 0.02 K/uL (0-0.2) RDW Standard Deviation 43.7 fL (36.4-46.3) RDW Coefficient of Variation 13.2 % (11.5-14.5) Immature Granulocyte % (Auto) 0.9 % Immature Granulocyte # (Auto) 0.12 K/uL (0.00-0.02) Prothrombin Time 28.2 SECONDS (9.0-12.0) Prothromb Time International Ratio 2.5 (0.9-1.1) Activated Partial Thromboplast Time 44.2 SECONDS (21.0-31.0) Partial Thromboplastin Ratio 1.7 D-Dimer 2000 ug/L FEU (0-500) Anion Gap 10.0 mmol/L (3-11) Est Creatinine Clear Calc Drug Dose 90.8 ml/min Estimated GFR () 80.1 Estimated GFR (Non- 69.1 BUN/Creatinine Ratio 13.2 (10-20) Calcium Level 9.3 mg/dl (8.5-10.1) Last 24 Hours Test 12/07/16 16:50 12/07/16 17:03 12/07/16 18:30 12/08/16 06:24 White Blood Count 15.21 K/uL 12.83 K/uL Red Blood Count 4.55 M/uL 4.08 M/uL Hemoglobin 14.2 g/dL 12.9 g/dL Hematocrit 40.6 % 36.6 % Mean Corpuscular Volume 89.2 fL 89.7 fL Mean Corpuscular Hemoglobin 31.2 pg 31.6 pg Mean Corpuscular Hemoglobin Concent 35.0 g/dl 35.2 g/dl Platelet Count 427 K/uL 382 K/uL Mean Platelet Volume 9.5 fL 10.1 fL Neutrophils (%) (Auto) 70.2 % 84.1 % Lymphocytes (%) (Auto) 13.0 % 8.4 % Monocytes (%) (Auto) 13.5 % 6.3 % Eosinophils (%) (Auto) 1.8 % 0.1 % Basophils (%) (Auto) 0.3 % 0.2 % Neutrophils # (Auto) 10.68 K/uL 10.79 K/uL Lymphocytes # (Auto) 1.98 K/uL 1.08 K/uL Monocytes # (Auto) 2.06 K/uL 0.81 K/uL Eosinophils # (Auto) 0.27 K/uL 0.01 K/uL Basophils # (Auto) 0.04 K/uL 0.02 K/uL RDW Standard Deviation 42.4 fL 43.7 fL RDW Coefficient of Variation 13.0 % 13.2 % Immature Granulocyte % (Auto) 1.2 % 0.9 % Immature Granulocyte # (Auto) 0.18 K/uL 0.12 K/uL Erythrocyte Sedimentation Rate 72 mm/hr Prothrombin Time 26.1 SECONDS 28.2 SECONDS Prothromb Time International Ratio 2.4 2.5 Activated Partial Thromboplast Time 39.4 SECONDS 44.2 SECONDS Partial Thromboplastin Ratio 1.5 1.7 Sodium Level 135 mmol/L 135 mmol/L Potassium Level 4.1 mmol/L 4.5 mmol/L Chloride Level 100 mmol/L 100 mmol/L Carbon Dioxide Level 27 mmol/L 25 mmol/L Anion Gap 8.0 mmol/L 10.0 mmol/L Blood Urea Nitrogen 16 mg/dl 15 mg/dl Creatinine 1.40 mg/dl 1.10 mg/dl Est Creatinine Clear Calc Drug Dose 71.3 ml/min 90.8 ml/min Estimated GFR () 59.8 80.1 Estimated GFR (Non- 51.6 69.1 BUN/Creatinine Ratio 11.6 13.2 Random Glucose 108 mg/dl 128 mg/dl Uric Acid 5.7 mg/dl Calcium Level 10.2 mg/dl 9.3 mg/dl Magnesium Level 2.3 mg/dl Total Bilirubin 0.5 mg/dl Aspartate Amino Transf (AST/SGOT) 18 U/L Alanine Aminotransferase (ALT/SGPT) 25 U/L Alkaline Phosphatase 133 U/L C-Reactive Protein 17.00 mg/dl Total Protein 8.2 gm/dl Albumin 2.7 gm/dl Globulin 5.5 gm/dl Albumin/Globulin Ratio 0.5 Lyme Disease IgG Antibody NEG Lyme Disease IgM Antibody EQUIVOCAL Bedside Lactic Acid Venous 1.21 mmol/L Urine Color DK YELLOW Urine Appearance CLEAR Urine pH 5.0 Urine Specific [place] 1.028 Urine Protein 1+ Urine Glucose (UA) NEG Urine Ketones NEG Urine Occult Blood 2+ Urine Nitrite NEG Urine Bilirubin NEG Urine Urobilinogen NEG Urine Leukocyte Esterase NEG Urine WBC (Auto) 1-5 /hpf Urine RBC (Auto) 5-10 /hpf Urine Hyaline Casts (Auto) 1-5 /lpf Urine Epithelial Cells (Auto) 10-20 /lpf Urine Bacteria (Auto) NEG D-Dimer 2000 ug/L FEU (Elli Ortiz PA-C) Assessment and Plan This patient is a 66-year-old male that presented to the emergency department with fatigue and severe right ankle pain yesterday. 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 Coumadin was reversed. Right lower extremity DVT-? Age indeterminate. It is very possible the patient developed a new DVT given the fact that his Coumadin was reversed. It does not sound like Coumadin failure -Continue home dose of Coumadin 10 mg on Tuesdays and Fridays. 7.5 mg every other day of the week -Continue to monitor INR Right ankle erythema and pain-likely secondary to gout as opposed to infectious etiology. The patient was on Uroxatral up until last year for frequent gout flares. This was discontinued secondary to cost. -Continue colchicine 0.6 mg po BID -Continue Solu-Medrol 20 mg IV BID -Consult orthopedics-? to see whether or not they agree that this is likely gout as opposed to an infectious etiology History of SVT -Continue metoprolol ER 25 mg po BID ?Lyme disease-Lyme screen came back equivocal. Patient does not have risk factors for Lyme. -Hold off on treatment -Follow-up Western blot DVT prophylaxis -Coumadin -TEDS, SCDs CODE STATUS -LEVEL I FULL CODE (Elli Ortiz, PAJohnC) Attending Attestation: Pt seen/examined, chart reviewed, care plan d/w PA Elli Ortiz. I agree w/ the eaton components of her documentation. Pt reports right ankle feels "much better." Can flex/extend it much more easily today. Reports frequent gout attacks in the past. Previously was on uloric; stopped it 1 year ago due to cost. Denies right calf pain. VSS no fever gen - pleasant, NAD heart - RRR, s1, s2 lungs - CTA b/l abd - soft; left inguinal incision clean, dry, no erythema musculo - right ankle with mild-mod synovitis; warm to touch, slightly erythematous lateral aspect; mild tenderness with palpation of the joint but passive ROM is largely nontender right 4th toe with synovitis labs WBC 12 today Cr 1.1 today INR 2.5 A/P: 1. right ankle effusion/pain - suspect gouty arthritis. Doubt septic joint. Doubt cellulitis. Will obtain ortho consult for their opinion. d/c abx cont steroids cont colchicine PT consult needs prophylaxis w/ allopurinol in about 1 month 2. lyme screen positive -- doubt early stage Lyme's or even early disseminated ; clinical picture not c/w such agree w/ discontinuation of rocephin await western blot 3. RLE chronic DVT with possible acute DVT - appreciate heme/onc consult simply cont coumadin at current doses INR in am 4. recent left inguinal hernia surgery - site appears well d/c tomorrow? Heron Roberts MD (Heron Roberts MD)
[2016-12-08 15:15] VITALS: BP 118/68; PULSE 71; TEMP 37.5; O2SAT 93
--- NOTE | 2016-12-08 15:26 | Oncology Consultation ---
Oncology/Heme Consultation Date of Consultation: Dec 08, 2016. Attending Physician: Heron Roberts MD Reason for Consultation: DVT History of Present Illness Mr. Alfred is a 66 year old man with gout. He had a very large RLE DVT with associated PE in 2011, following a right hip replacement. He was treated with Coumadin and has remained on treatment ever since, likely due to the life- threatening nature of his first VTE. He underwent urgent hernia repair about 2 weeks ago. He did not have an opportunity to wean off of coumadin, so he was given IV vitamin K and was taken to surgery the following day. He was then put on Lovenox the day after, before transitioning back to coumadin. He presented yesterday with right ankle redness, swelling, and pain that radiates up his calf. A lower extremity doppler reveals age-indeterminate clot in his right femoral and popliteal vein, along with his posterior tibial vein. The doppler from 2011 did not describe a clot in the posterior tibial vein. He has no family history of VTE and no clots prior to the episode in 2011. He is on prednisone and antibiotics and his pain is improving. Past Medical/Surgical History Medical Problems: (1) Cellulitis of right ankle Status: Acute (2) DVT, lower extremity Status: Acute (3) Positive Lyme disease serology Status: Acute Social History Smoking Status: Never Smoker Smokeless Tobacco Use: No Drug Use: none Marital Status: Housing Status: lives with family Occupation Status: employed Allergies Coded Allergies: Iron (Verified Adverse Reaction, Unknown, TACHYCARDIA, 12/07/16) Home Medications Scheduled Gabapentin (Neurontin), 300 MG PO HS Levofloxacin (Levaquin), 500 MG PO DAILY Metoprolol Succinate (Toprol Xl), 25 MG PO BID Oxycodone Ir (Roxicodone Ir), 5 MG PO TID Warfarin Sod (Jantoven), 7.5 MG PO 5XWK Warfarin Sod (Jantoven), 10 MG PO 2XWK Scheduled PRN Hydrocodone/Acetaminophen 10MG/325MG ([place] 10MG/325MG), 1-2 TABS PO Q6H PRN for Pain Current Inpatient Medications Current Inpatient Medications Medications (Trade) Dose Ordered Sig/Gege Route Start Time Stop Time Status Last Admin Dose Admin Ioversol (Optiray 320) 125 ml UD PRN IV 12/07/16 19:00 12/11/16 18:59 Acetaminophen (Tylenol Tab) 650 mg Q4H PRN PO 12/07/16 19:00 01/06/17 18:59 12/08/16 06:24 650 MG Polyethylene (Miralax Powder Packet) 17 gm DAILY PRN PO 12/07/16 19:00 01/06/17 18:59 Ondansetron HCl (Zofran Inj) 4 mg Q6H PRN IV 12/07/16 19:00 01/06/17 18:59 Tramadol HCl (Ultram Tab) 50 mg Q4H PRN PO 12/07/16 19:00 01/06/17 18:59 12/07/16 23:40 50 MG Gabapentin (Neurontin Cap) 300 mg HS PO 12/07/16 21:00 01/06/17 20:59 12/07/16 22:12 300 MG Acetaminophen/ Hydrocodone Bitart ([place] 10/325 Tab) 1 tab Q6H PRN PO 12/07/16 19:00 12/21/16 18:59 Metoprolol Succinate (Toprol Xl Tab) 25 mg BID PO 12/07/16 20:00 01/06/17 20:59 12/08/16 08:13 25 MG Oxycodone HCl (Roxicodone Immediate Rel Tab) 5 mg TID PO 12/07/16 20:00 12/21/16 20:59 12/08/16 13:44 5 MG Colchicine 0.6 mg 0.6 mg BID PO 12/07/16 20:00 01/06/17 20:59 12/08/16 08:13 0.6 MG Methylprednisolone Sodium Succinate/ Syringe (Solu-Medrol IV/ Syringe) 0.32 ml @ 1.5 mls/min Q8H IV 12/07/16 23:00 01/06/17 22:59 12/08/16 14:33 1.5 MLS/MIN Zolpidem Tartrate (Ambien Tab) 5 mg HS PRN PO 12/08/16 02:15 01/07/17 02:14 12/08/16 02:31 5 MG Warfarin Sodium (Coumadin Tab) 7.5 mg SuMoWeThSa@1600 PO 12/08/16 16:00 01/07/17 15:59 Warfarin Sodium (Coumadin Tab) 10 mg TuFr@1600 PO 12/09/16 16:00 01/08/17 15:59 Review of Systems Constitutional: No chills, No fatigue, No fever ENT: No unusual epistaxis Respiratory: No cough, No hemoptysis, No shortness of breath Cardiovascular: No chest pain, No edema Abdomen: No GI bleeding, No nausea, No pain Musculoskeletal: + calf pain, + swelling, No joint pain, No muscle pain Genitourinary - Male: No dysuria, No hematuria Neurologic: No numbness/tingling, No weakness Hematologic / Lymphatic: No abnormal bleeding/bruising, No swollen lymph nodes Physical Exam Date Time Temp Pulse Resp B/P Pulse Ox O2 Delivery O2 Flow Rate FiO2 12/08/16 07:30 Room Air 12/08/16 07:30 36.4 78 18 118/78 93 Room Air 12/08/16 00:00 Room Air 12/07/16 22:58 36.8 79 18 118/78 96 Room Air 12/07/16 22:39 36.3 16 117/72 96 Room Air 12/07/16 19:32 36.3 79 16 117/72 97 12/07/16 18:46 79 16 117/72 97 Room Air 12/07/16 15:21 36.3 94 18 130/72 98 Room Air General Appearance: WD/WN, no apparent distress Eyes: EOMI ENT: pharynx normal Respiratory/Chest: lungs clear, no respiratory distress Cardiovascular: regular rate, rhythm, no murmur Abdomen/GI: non tender, soft Extremities/Musculoskelatal: + pertinent finding (His right ankle is markedly swollen and warm and mildly erythematous. He has no tenderness in his posterior calf and no palpable cord. ) Neurologic/Psych: no motor/sensory deficits, alert, oriented x 3 Skin: warm/dry, no rash, + rash Lymphatic: no adenopathy Laboratory Results Last 24 Hours Test 12/07/16 16:50 12/07/16 17:03 12/07/16 18:30 12/08/16 06:24 White Blood Count 15.21 K/uL 12.83 K/uL Red Blood Count 4.55 M/uL 4.08 M/uL Hemoglobin 14.2 g/dL 12.9 g/dL Hematocrit 40.6 % 36.6 % Mean Corpuscular Volume 89.2 fL 89.7 fL Mean Corpuscular Hemoglobin 31.2 pg 31.6 pg Mean Corpuscular Hemoglobin Concent 35.0 g/dl 35.2 g/dl Platelet Count 427 K/uL 382 K/uL Mean Platelet Volume 9.5 fL 10.1 fL Neutrophils (%) (Auto) 70.2 % 84.1 % Lymphocytes (%) (Auto) 13.0 % 8.4 % Monocytes (%) (Auto) 13.5 % 6.3 % Eosinophils (%) (Auto) 1.8 % 0.1 % Basophils (%) (Auto) 0.3 % 0.2 % Neutrophils # (Auto) 10.68 K/uL 10.79 K/uL Lymphocytes # (Auto) 1.98 K/uL 1.08 K/uL Monocytes # (Auto) 2.06 K/uL 0.81 K/uL Eosinophils # (Auto) 0.27 K/uL 0.01 K/uL Basophils # (Auto) 0.04 K/uL 0.02 K/uL RDW Standard Deviation 42.4 fL 43.7 fL RDW Coefficient of Variation 13.0 % 13.2 % Immature Granulocyte % (Auto) 1.2 % 0.9 % Immature Granulocyte # (Auto) 0.18 K/uL 0.12 K/uL Erythrocyte Sedimentation Rate 72 mm/hr Prothrombin Time 26.1 SECONDS 28.2 SECONDS Prothromb Time International Ratio 2.4 2.5 Activated Partial Thromboplast Time 39.4 SECONDS 44.2 SECONDS Partial Thromboplastin Ratio 1.5 1.7 Sodium Level 135 mmol/L 135 mmol/L Potassium Level 4.1 mmol/L 4.5 mmol/L Chloride Level 100 mmol/L 100 mmol/L Carbon Dioxide Level 27 mmol/L 25 mmol/L Anion Gap 8.0 mmol/L 10.0 mmol/L Blood Urea Nitrogen 16 mg/dl 15 mg/dl Creatinine 1.40 mg/dl 1.10 mg/dl Est Creatinine Clear Calc Drug Dose 71.3 ml/min 90.8 ml/min Estimated GFR () 59.8 80.1 Estimated GFR (Non- 51.6 69.1 BUN/Creatinine Ratio 11.6 13.2 Random Glucose 108 mg/dl 128 mg/dl Uric Acid 5.7 mg/dl Calcium Level 10.2 mg/dl 9.3 mg/dl Magnesium Level 2.3 mg/dl Total Bilirubin 0.5 mg/dl Aspartate Amino Transf (AST/SGOT) 18 U/L Alanine Aminotransferase (ALT/SGPT) 25 U/L Alkaline Phosphatase 133 U/L C-Reactive Protein 17.00 mg/dl Total Protein 8.2 gm/dl Albumin 2.7 gm/dl Globulin 5.5 gm/dl Albumin/Globulin Ratio 0.5 Lyme Disease IgG Antibody NEG Lyme Disease IgM Antibody EQUIVOCAL Bedside Lactic Acid Venous 1.21 mmol/L Urine Color DK YELLOW Urine Appearance CLEAR Urine pH 5.0 Urine Specific [place] 1.028 Urine Protein 1+ Urine Glucose (UA) NEG Urine Ketones NEG Urine Occult Blood 2+ Urine Nitrite NEG Urine Bilirubin NEG Urine Urobilinogen NEG Urine Leukocyte Esterase NEG Urine WBC (Auto) 1-5 /hpf Urine RBC (Auto) 5-10 /hpf Urine Hyaline Casts (Auto) 1-5 /lpf Urine Epithelial Cells (Auto) 10-20 /lpf Urine Bacteria (Auto) NEG D-Dimer 2000 ug/L FEU Assessment & Plan I reviewed his ultrasound with the interpreting radiologist. He is unable to determine the age of the clot, though he favors their not being chronic. He does not have enough information to determine if there was clot in the posterior tibial vein in 2012, but it was not called at that time. In the absence of more data to the contrary, I feel we have to assume he has a new DVT in his right posterior tibial vein, which may or may not reflect progression of a chronic clot in his right leg. Regardless, this was a provoked event secondary to surgery and likely does not reflect a coumadin failure. However, due to this event, I feel he should remain on indefinite anticoagulation, as a second event of VTE, provoked or otherwise, is a major risk factor for future thrombosis.
--- NOTE | 2016-12-08 15:38 | ORTHOPEDIC CONSULTATION ---
DATE OF CONSULTATION: 12/08/2016 DATE OF CONSULTATION: 12/08/2016. CHIEF COMPLAINT: Right ankle pain. HISTORY OF PRESENT ILLNESS: Collin is a delightful patient, well known to the practice, first time I am meeting him presents with high probability of gouty inflammatory issue to his right ankle. He has a history of gout some other significant medical problems, had recent hernia surgery. I believe the stress of it may have precipitated a gouty attack. Currently denies any fevers, sweats, shortness of breath. He is stable. He is alert, oriented. PAST MEDICAL HISTORY: Positive for DVT, PE, hernia repair. He has been on Coumadin. Also total hip replacement by one of my partners in the distant past as well. PHYSICAL EXAMINATION: MUSCULOSKELETAL: Demonstrates some erythema about the right ankle. Pain is controlled, decreased range of motion, slight swelling, slight edema. No calf tenderness. NEUROLOGICALLY: Intact. X-RAYS not indicated. ASSESSMENT: Gouty flareup of the right ankle. DISPOSITION: I would treat this medically with different medical regimes that are appropriate for gout in this clinical situation. I do not think there is any indication for aspiration. I will order a light weight ankle brace. It may give him some support. That can be worn on a p.r.n. basis. I will follow him daily.
[2016-12-08] MEDS: WARFARIN SOD 7.5 MG TAB PO SCH (16:38)
[2016-12-08] MEDS ORDERED: CEFTRIAXONE SOD INJ 1000 MG in DEXTROSE 5% 50ML IV SCH (18:00)
[2016-12-08] MEDS: GABAPENTIN 300 MG CAP PO SCH (20:14)
[2016-12-08 21:17] VITALS: BP 105/67; PULSE 79
[2016-12-09 00:05] VITALS: BP 125/75; PULSE 71; TEMP 36.5; O2SAT 94
[2016-12-09] MEDS ORDERED: METHYLPREDNISOLONE IV 20 MG in SYRINGE 0 ML IV SCH (03:00)
[2016-12-09 07:45] VITALS: BP 120/78; PULSE 75; TEMP 36.4; O2SAT 93
[2016-12-09] MEDS: METOPROLOL SUCC 25MG EXT REL TAB PO SCH ×2 (07:53→20:12)
[2016-12-09] MEDS: COLCHICINE 0.6 MG TAB PO SCH ×2 (07:53→20:11)
[2016-12-09] MEDS: OXYCODONE HCL IR 5 MG TAB (IMMEDIATE RELEASE) PO SCH ×3 (07:53→20:11)
[2016-12-09 08:21] LABS: INR 2.7 (0.9-1.1); PROTHROMBIN TIME (PATIENT) 30.6 SECONDS (9.0-12.0)
[2016-12-09] MEDS ORDERED: VANCOMYCIN TROUGH SCH (08:30)
[2016-12-09 08:33] LABS: BUN/CREATININE RATIO 19.9 (10-20); CALCIUM 9.2 mg/dl (8.5-10.1); CREATININE 1.1 mg/dl (0.60-1.40); POTASSIUM 4.1 mmol/L (3.5-5.1)
[2016-12-09 11:15] VITALS: BP 147/88; PULSE 82; O2SAT 95
--- NOTE | 2016-12-09 14:40 | Hospitalist Progress Note ---
Hospitalist Progress Note Date of Service Dec 09, 2016. (Elli Ortiz PA-C) Subjective Pt evaluation today including: conversation w/ patient, physical exam, chart review, lab review, review of inpatient medication list Patient thinks that it slightly more painful today maybe since he says he was up walking on it yesterday. Also notes some yellowish discoloration of the back of the calf. Denies any fever or chills. No chest shortness of breath. He was able to get up off entirely in the hallway. Denies any fever or chills. Additional Comments: 6 system review negative. Please see pertinent positives in the history of present illness section. (Elli Ortiz PA-C) Objective Vital Signs Date Time Temp Pulse Resp B/P Pulse Ox O2 Delivery O2 Flow Rate FiO2 12/09/16 11:15 82 95 12/09/16 08:00 Room Air 12/09/16 07:45 36.4 75 16 120/78 93 12/09/16 00:05 36.5 71 20 125/75 94 Room Air 12/09/16 00:00 Room Air 12/08/16 21:17 79 105/67 12/08/16 20:00 Room Air 12/08/16 15:15 37.5 71 16 118/68 93 12/08/16 14:40 Room Air (Elli Ortiz PA-C) Physical Exam General Appearance: no apparent distress Eyes: EOMI ENT: + pertinent finding (oral mucosa somewhat dry. No plaque noted.) Neck: no JVD Respiratory/Chest: lungs clear Cardiovascular: regular rate, rhythm Abdomen: normal bowel sounds, non tender, soft, + pertinent finding (incision intact.) Extremities: + pertinent finding (nonpitting edema again noted in the right lower extremity. Erythema again noted in the ankle. Good flexion and extension at the ankle. DP pulse +2. Decreased overall erythema and swelling.) Neurologic/Psychiatric: no motor/sensory deficits, oriented x 3 Skin: warm/dry (Elli Ortiz PA-C) Laboratory Results Last 24 Hours Test 12/09/16 07:36 Prothrombin Time 30.6 SECONDS Prothromb Time International Ratio 2.7 Sodium Level 137 mmol/L Potassium Level 4.1 mmol/L Chloride Level 103 mmol/L Carbon Dioxide Level 24 mmol/L Anion Gap 10.0 mmol/L Blood Urea Nitrogen 22 mg/dl Creatinine 1.10 mg/dl Est Creatinine Clear Calc Drug Dose 90.8 ml/min Estimated GFR () 80.1 Estimated GFR (Non- 69.1 BUN/Creatinine Ratio 19.9 Random Glucose 143 mg/dl Calcium Level 9.2 mg/dl (Elli Ortiz PA-C) Assessment and Plan This patient is a 66-year-old male that presented to the emergency department with fatigue and severe right ankle pain yesterday. 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 Coumadin was reversed. Right lower extremity DVT-? Age indeterminate. It is very possible the patient developed a new DVT given the fact that his Coumadin was reversed. It does not sound like Coumadin failure. INR therapeutic 2.7 -Continue home dose of Coumadin 10 mg on Tuesdays and Fridays. 7.5 mg every other day of the week -Continue to monitor INR -Discussed with pharmacy. No significant interactions with colchicine or uroxatral Right ankle erythema and pain-likely secondary to gout as opposed to infectious etiology. The patient was on Uroxatral up until last year for frequent gout flares. This was discontinued secondary to cost. -Antibiotics discontinued yesterday. Improvement noted. -Orthopedics on board with diagnosis of acute gout -Continue colchicine 0.6 mg po BID -Change solu-medrol to prednisone 50 mg today -Restart Uroxatral in a few weeks after initial flare -Plan on DC home on culture seen 0.6 po daily and prednisone 50 mg taper over 7- 10 days History of SVT -Continue metoprolol ER 25 mg po BID ?Lyme disease-Lyme screen came back equivocal. Patient does not have risk factors for Lyme. -Hold off on treatment -Follow-up Western blot DVT prophylaxis -Coumadin -TEDS, SCDs CODE STATUS -LEVEL I FULL CODE This chart was completed in part utilizing [employer] Voice Recognition software. Attempts were made to minimize the grammatical errors, random word insertions, pronoun errors and incomplete sentences. Any formal questions or concerns about the content, text or information contained within the body of this dictation should be directly addressed to the provider for clarification. (Elli Ortiz PA-C) Attending Attestation: Pt seen/examined, chart reviewed, care plan d/w ELIZABETH Ortiz. I agree w/ the eaton components of her documentation. Pt's RIGHT ankle overall feels better. He can weight bear. He can flex/extend the ankle much more comfortably. He is most worried about the color/appearance of right leg. no fever VSS gen - NAD heart - RRR lungs - CTA b/l abd - soft, incision left groin clean musculo - right ankle - less synovitis; he has NO pain with passive flexion/ extension of the ankle; minimal pain with palpating the joint right 4th toe with less synovitis numerous hammer toes b/l feet skin - preulcers on tips of digits 1/2 right foot A/P: 1. gouty arthritis, right ankle and right 4th toe - improved start weaning steroids colchicine daily restart uloric in 1 month 2. acute/chronic DVT, right leg - cont coumadin, daily INR 3. recent left inguinal hernia repair with resulting SBO - incision clean 4. hammer toes and neuropathy of feet - needs custom fit diabetic shotes ambulate home tomorrow Greg SANTIAGO MD (Heron Santiago MD)
[2016-12-09 14:50] VITALS: BP 138/66; PULSE 67; TEMP 36.7; O2SAT 92
[2016-12-09 15:36] VITALS: BP 103/64; PULSE 73; TEMP 37; O2SAT 94
[2016-12-09] MEDS ORDERED: WARFARIN SOD 10 MG TAB PO SCH (16:00)
[2016-12-09] MEDS: GABAPENTIN 300 MG CAP PO SCH (22:11)
[2016-12-09] MEDS: ZOLPIDEM TARTRATE 5 MG TAB PO PRN (22:12)
[2016-12-09 23:45] VITALS: BP 103/67; PULSE 66; TEMP 36.5; O2SAT 96
[2016-12-10 07:02] LABS: INR 2.7 (0.9-1.1); PROTHROMBIN TIME (PATIENT) 29.8 SECONDS (9.0-12.0)
[2016-12-10 07:13] VITALS: BP 113/71; PULSE 69; TEMP 36.3; O2SAT 92
[2016-12-10 07:28] LABS: BUN/CREATININE RATIO 21.4 (10-20); CALCIUM 8.9 mg/dl (8.5-10.1); CREATININE 1.1 mg/dl (0.60-1.40); POTASSIUM 4.1 mmol/L (3.5-5.1)
[2016-12-10] MEDS: COLCHICINE 0.6 MG TAB PO SCH (08:02)
[2016-12-10] MEDS: METOPROLOL SUCC 25MG EXT REL TAB PO SCH (08:02)
[2016-12-10] MEDS: OXYCODONE HCL IR 5 MG TAB (IMMEDIATE RELEASE) PO SCH ×2 (08:03→13:50)
[2016-12-10] MEDS ORDERED: FEBU40TA PO (14:57)
[2016-12-10] MEDS ORDERED: PRED10TA PO (14:57)
[2016-12-10] MEDS ORDERED: CLC6 PO (14:57)
[2016-12-10] MEDS ORDERED: OXYC1TAB3 PO (14:57)
--- NOTE | 2016-12-10 15:11 | Discharge Instructions ---
Discharge Instructions Date of Service Dec 10, 2016. Admission Reason for Admission: 1. severe right ankle pain 2. concern of new DVT Discharge Discharge Diagnosis / Problem: 1. gout of the right ankle and right 4th toe 2. probable new DVT R leg Discharge Goals Goal(s): Decrease discomfort, Improve function, Improve disease control, Learn about illness, Diagnostic testing, Therapeutic intervention Activity Recommendations Activity Limitations: as noted below Lifting Limitations: until after follow-up appointment (please limit your lifting to the instructions provided by your surgeon) Please contact your surgeon to determine when it is ok to resume taking baths. . Instructions / Follow-Up Instructions / Follow-Up From Dr. Roberts: 1. Gout - right ankle and right 4th toe - this markedly improved with use of steroids (prednisone) and colchicine. Please do the following - * take a prednisone course; start this TOMORROW on 12/11/16. Take for a total of 9 days. Take the prednisone with food. * take colchicine once daily; start this TOMORROW on 12/11/16. Recommend that you take this daily at least until you start back your uloric. * uloric 40mg -- start this in approximately 4 weeks. This medication is designed to PREVENT gout attacks. * all 3 of these medications have been sent to [facility]. 2. DVT - * continue your coumadin as previous (7.5mg tabs 5 days a week; 10mg tabs 2 days a week). * Your INR today on 12/10/16 is 2.7. * recommend that you have your INR checked in about 5 days for stability. 3. Neuropathy of your feet - * You have developed hammer toes and "pre-ulcers" as a result of your neuropathy. * Jacob Calabrese recommended that you enroll in the Diabetic Foot clinic to obtain custom fit shoes. * Please use the brace for the right ankle as provided by Mr. Calabrese. 4. Pain - * You may take oxycodone as needed for pain; small supply given at discharge. * Know that the oxycodone may make you constipated. * Do not drive while taking oxycodone and do not consume alcohol while taking oxycodone. 5. Follow-up appointments - * See Dr. Fagan within 1 week. * See your surgeon as scheduled for your post-op check. Current Hospital Diet Patient's current hospital diet: AHA Diet (Heart Healthy) Discharge Diet Recommended Diet: AHA Diet (Heart Healthy) Procedures Procedures Performed: 1. CAT scan of the lungs - NO blood clots. 2. Right leg sonogram - old blood clot seen as well as a new blood clot. 3. right ankle x-rays - NO fractured bones. Pending Studies Studies pending at discharge: no Medical Emergencies . Who to Call and When: Medical Emergencies: If at any time you feel your situation is an emergency, please call 911 immediately. . Non-Emergent Contact Non-Emergency issues call your: Primary Care Provider Call Non-Emergent contact if: temperature is above 100.5, your pain is worsening, your pain is concerning you Contact your surgeon if your incision in the left groin becomes red, inflamed/ swollen, warm to touch, there is any drainage, etc. . . "Provider Documentation" section prepared by Heron Roberts. VTE Core Measure Inpt VTE Proph given/why not?: Enoxaparin (Lovenox)SQ, Warfarin (Coumadin) [place] Drug Monitoring Program Search Results: patient reviewed within database, no issues identified
[2016-12-10] MEDS: WARFARIN SOD 7.5 MG TAB PO SCH (15:31)
[2016-12-10 15:58] VITALS: BP 115/77; PULSE 82; TEMP 36.6; O2SAT 92
[2016-12-13 05:33] LABS: 18KDIGG BAND NONREACTIVE (NONREACTIVE); 23KDIGG BAND NONREACTIVE (NONREACTIVE); 23KDIGM BAND NONREACTIVE (NONREACTIVE); 28KDIGG BAND NONREACTIVE (NONREACTIVE); 30KDIGG BAND NONREACTIVE (NONREACTIVE); 39KDIGG BAND NONREACTIVE (NONREACTIVE); 39KDIGM BAND NONREACTIVE (NONREACTIVE); 41KDIGG BAND NONREACTIVE (NONREACTIVE); 41KDIGM BAND REACTIVE (NONREACTIVE); 45KDIGG BAND NONREACTIVE (NONREACTIVE); 58KDIGG BAND NONREACTIVE (NONREACTIVE); 66KDIGG BAND NONREACTIVE (NONREACTIVE); 93KDIGG BAND NONREACTIVE (NONREACTIVE)
--- NOTE | 2016-12-14 22:47 | Discharge Summary ---
Discharge Summary Date of Service Dec 14, 2016. Discharge Summary Admission Date: Dec 07, 2016 at 19:06 Discharge Date: Dec 10, 2016 Discharge Disposition: Home Principal Diagnosis: acute gout, right ankle Problems/Secondary Diagnoses: 1. h/o RLE DVT with PE 2. acute DVT, right posterior tibialis vein 3. recent left inguinal incarcerated hernia - hospitalized at [facility] 4. peripheral neuropathy of feet Immunizations: Have You Had Influenza Vaccine: N/A History of Tetanus Vaccine?: No History of Pneumococcal: No History of Hepatitis B Vaccine: Unknown Procedures: 1. RLE venous duplex exam - FINDINGS: There was deep venous thrombus within the right femoral and popliteal veins. This thrombus is age indeterminate. There was also thrombus within the right posterior tibial vein. IMPRESSION: Deep venous thrombus within the right femoral, popliteal and posterior tibial veins. 2. CTA chest negative for PE. 3. Right achilles ultrasound - negative for pathology. Consultations: 1. orthopedics - Ken Flores DO 2. heme/onc - Kody Jacobo MD 3. physical therapy 4. orthotics - Jacob Calabrese Medication Reconciliation New Medications: Febuxostat (Uloric) 40 Mg Tab 1 TAB PO DAILY for 30 Days, #30 TAB 5 Refills Colchicine (Colcrys) 0.6 Mg Tab 0.6 MG PO DAILY, #30 TAB 1 Refill begin 12/11/16 Prednisone Tab (Prednisone) 10 Mg Tab 10 MG PO DIRECTED, #18 TAB starting 12/11/16: take 3 tabs days 1-3, 2 tabs days 4-6, 1 tab days 7-9, then stop. Changed Medications: Oxycodone Ir (Roxicodone Ir) 5 Mg Tab 1-2 TABS PO Q6H PRN for Pain, #15 TAB 0 Refills (Changed from: 5 MG; TID; Refills: ) Continued Medications: Gabapentin (Neurontin) 100 Mg Cap 300 MG PO HS, CAP Metoprolol Succinate (Toprol Xl) 25 Mg Tabcr 25 MG PO BID Warfarin Sod (Jantoven) 7.5 Mg Tab 7.5 MG PO 5XWK, TAB Warfarin Sod (Jantoven) 10 Mg Tab 10 MG PO 2XWK, TAB TuesFri Discontinued Medications: Hydrocodone/Acetaminophen 10MG/325MG (Davey 10MG/325MG) Tab 1-2 TABS PO Q6H PRN for Pain, TAB PRN PAIN Levofloxacin (Levaquin) 500 Mg Tab 500 MG PO DAILY, #7 Discharge Exam Physical Exam: General Appearance: no apparent distress ENT: pharynx normal Neck: no JVD Respiratory/Chest: lungs clear, no respiratory distress, no accessory muscle use Cardiovascular: regular rate, rhythm, no gallop, no murmur, normal peripheral pulses Abdomen / GI: normal bowel sounds, non tender, soft, no organomegaly, + pertinent finding (incision left groin clean, steri strips intact, no erythema or drainage) Extremities: + pertinent finding (right ankle with minimal synovitis; passive flexion/extension of the right ankle produces no pain; no warmth, no erythema; synovitis of right 4th toe nearly resolved) Neurologic/Psychiatric: alert, oriented x 3 Skin: + pertinent finding (hammer toes b/l feet; pre-ulcers on multiple toes (tips of toes)) Hospital Course HISTORY OF PRESENT ILLNESS: The patient is a 66-year-old male who presented to the emergency department with complaint of right ankle and calf swelling, pain and redness. He underwent a hernia repair at [facility] 2 weeks ago without incident. Then saw his orthopedist Dr. Rosales 6 days ago for possible future hip surgery. He saw his PCP 2 days ago for symptoms of being very sleepy, drowsy and tired, had laboratory showing elevated white blood cell count, and was started on oral Levaquin for possible cellulitis of the right leg which she he has taken 3 doses so far. He first noticed pain in his right ankle after taking his initial dose of Levaquin. His pain has worsened since that time. HOSPITAL COURSE: The patient's right ankle pain and swelling were thought to be due to acute gouty arthritis. He also had evidence of gout in his right 4th toe. He quickly improved with use of steroids and colchicine. He was seen in consult by Dr. Ken Flores, orthopedics, who also felt that his right ankle pain was from gout and not an infectious process. Of note - blood cultures remained negative while hospitalized. He was also seen in consult by Jacob Calabrese, orthotics, who fit him for a right ankle brace. Diabetic shoes were also recommended due to multiple hammertoes and pre-ulcers as a result of his peripheral neuropathy. The patient has a long history of gout and had been off uloric prophylaxis for about 1 year. It was strongly advised that he resume this medication in about 3-4 weeks. In the meantime he will complete a steroid taper and remain on once daily colchicine until the uloric can be resumed. The patient underwent a LE venous duplex examination of the right leg and this showed a suspected NEW right posterior tibial vein DVT. There was also DVT in 2 other veins but these were felt to be chronic. Dr. Jacobo from heme/onc felt that the acute DVT was NOT due to a coumadin failure; instead, it was felt it was a provoked DVT in the setting of recent surgery and being off of anticoagulation. Thus, he will simply continue coumadin life-long. INR on day of discharge was 2.7. Lastly, a lyme's screening test was equivocal but the Western Blot ultimately returned negative. He was seen by PT prior to discharge and deemed a good candidate for returning home. Total Time Spent: Greater than 30 minutes This includes examination of the patient, discharge planning, medication reconciliation, and communication with other providers. Discharge Instructions Please refer to the electronic Patient Visit Report (Discharge Instructions) for additional information. Follow-Up 1. See Dr. Fagan within 1 week. 2. See [facility] surgery as scheduled for post-op check 3. See the Diabetes Foot clinic for custom fit shoes Additional Copies To Surinder Fagan D.O.Int.Med.
[2017-02-15] MEDS ORDERED: ALLO100T PO (15:56)
[2017-05-19] MEDS ORDERED: COLC0.6T54 PO (11:24)
[2017-06-10] MEDS ORDERED: RXC5 PO (20:29)
[2017-06-10] MEDS ORDERED: ACET-24 PO (20:29)
== END 2016-12-10 16:00 | disposition home or self-care (01) | DRG 300 ==
LOC: ENRESERVDT → ENRESERVTM → C.EDB 15:18 → C.MS4W 19:06
PROVIDERS: ADMIT Hospitalist; ATTEND Internal Medicine
DX: I82.411 Acute embolism and thrombosis of right femoral vein (principal); L03.115 Cellulitis of right lower limb; M10.9 Gout, unspecified; I82.431 Acute embolism and thrombosis of right popliteal vein; I82.441 Acute embolism and thrombosis of right tibial vein; M20.40 Other hammer toe(s) (acquired), unspecified foot; G62.9 Polyneuropathy, unspecified; G89.29 Other chronic pain; Z86.718 Personal history of other venous thrombosis and embolism; Z79.01 Long term (current) use of anticoagulants; Z79.899 Other long term (current) drug therapy; R35.0 Frequency of micturition; R53.83 Other fatigue; I48.91 Unspecified atrial fibrillation

== ENCOUNTER 2017-06-09 10:28 | Inpatient (IN) | payer OTHER ==
[2017-05-19 11:25] VITALS: BMI 31.0
--- NOTE | 2017-05-19 11:59 | PAT Medication Instructions ---
Service Date May 19, 2017. Current Home Medication List Allopurinol (Zyloprim), 100 MG PO QAM Colchicine (Colchicine), 0.6 MG PO QAM Gabapentin (Neurontin), 300 MG PO HS Metoprolol Succinate (Toprol Xl), 25 MG PO BID Oxycodone Ir (Roxicodone Ir), 1-2 TABS PO Q6H PRN for Pain Warfarin Sod (Jantoven), 7.5 MG PO 5XWK Warfarin Sod (Jantoven), 10 MG PO 2XWK Medication Instructions For Your Scheduled Surgery - Check with surgeon/coumadin clinic for instructions: Warfarin Sod (Jantoven), 7.5 MG PO 5XWK Warfarin Sod (Jantoven), 10 MG PO 2XWK - Take the following medications the morning of surgery with a sip of water: Allopurinol (Zyloprim), 100 MG PO QAM Colchicine (Colchicine), 0.6 MG PO QAM Metoprolol Succinate (Toprol Xl), 25 MG PO BID Oxycodone Ir (Roxicodone Ir), 1-2 TABS PO Q6H PRN for Pain (okay to take up to 4 hours prior to surgery if needed) - Take the following medications as scheduled the night before surgery: Gabapentin (Neurontin), 300 MG PO HS Metoprolol Succinate (Toprol Xl), 25 MG PO BID Oxycodone Ir (Roxicodone Ir), 1-2 TABS PO Q6H PRN for Pain (if needed) If you have any questions please call us at [phone] or [phone] or [phone]
[2017-05-19 12:48] LABS: BASO % 0.5 %; BASO ABS # 0.05 K/uL (0-0.2); COMPLETE YES; EOS % 2.1 %; HEMATOCRIT 44.4 % (42-52); IG% 0.3 %; LYMPH % 25.9 %; LYMPH ABS # 2.44 K/uL (1.2-3.4); MEAN CELL VOLUME 88.1 fL (80-100); MEAN CORPUSCULAR HEMOGLOBIN 31.5 pg (25-34); MEAN CORPUSCULAR HGB CONC 35.8 g/dl (32-36); MEAN PLATELET VOLUME 9.5 fL (7.4-10.4); NEUT % 62.2 %; PLATELET COUNT 254 K/uL (130-400); RED BLOOD COUNT 5.04 M/uL (4.7-6.1); WHITE BLOOD COUNT 9.41 K/uL (4.8-10.8)
[2017-05-19 12:58] LABS: INR 2.2 (0.9-1.1); PARTIAL THROMBOPLASTIN RATIO 1.4; PROTHROMBIN TIME (PATIENT) 24.2 SECONDS (9.0-12.0)
--- NOTE | 2017-05-19 13:07 | DIAGNOSTIC IMAGING REPORT ---
CHEST 2 VIEWS ROUTINE CLINICAL HISTORY: Preoperative evaluation. COMPARISON STUDY: Chest CT December 07, 2016. FINDINGS: Moderate elevation of the left hemidiaphragm is unchanged. Linear left basilar opacity is suggestive of atelectasis. There is no consolidation or evidence of pulmonary edema. A hiatal hernia is noted. There is no evidence of pulmonary edema. The appearance of the chest is unchanged. Mild cardiomegaly is unchanged. IMPRESSION: 1. No acute cardiopulmonary findings. No change in appearance of the chest. 2. Mild cardiomegaly. Electronically signed by: Farhat Jonas M.D. 05/19/2017 1:06 PM Dictated Date/Time: 05/19/2017 1:05 PM
[2017-05-19 13:44] LABS: BLOOD UREA NITROGEN 14 mg/dl (7-18); BUN/CREATININE RATIO 9.2 (10-20); C-REACTIVE PROTEIN < 0.29 mg/dl (0-0.29); CALCIUM 9.2 mg/dl (8.5-10.1); CARBON DIOXIDE 27 mmol/L (21-32); CHLORIDE 103 mmol/L (98-107); GLUCOSE 104 mg/dl (70-99); POTASSIUM 4.8 mmol/L (3.5-5.1); SODIUM 137 mmol/L (136-145)
--- NOTE | 2017-06-01 14:27 | HISTORY & PHYSICAL EXAMINATION ---
DATE OF ADMISSION: 06/09/2017 CHIEF COMPLAINT: Left hip pain and discomfort. HISTORY OF PRESENT ILLNESS: The patient is a 66-year-old gentleman who is now 5 years out from right hip replacement, presents for treatment of his left hip. He has got a long history of left hip pain and discomfort. He describes it has just gotten worse over time. We were actually planning on doing his left hip shortly after his right hip, but he did develop PE postoperatively. He has been on chronic Coumadin since. He has had to resort to using a cane or crutch to get around for the past year due to his hip and leg pain. He says he has got a significant leg length discrepancy and limps all the time. The more he walks, the more it hurts. He would now like to proceed with surgical treatment. PAST MEDICAL HISTORY: 1. Hypertension. 2. History of atrial fibrillation on Coumadin. 3. History of DVT and PE. 4. Gout. PAST SURGICAL HISTORY: 1. Hernia surgery. 2. Ankle surgery. 3. Right total hip replacement 10/14/2011. ALLERGIES: IRON. CURRENT MEDICINES: 1. Coumadin 5-10 mg daily as directed as the Coumadin clinic. 2. Metoprolol. 3. Benadryl 4. Oxycodone. SOCIAL HISTORY: A 66-year-old male. He is . His was a previous orthopedic nurse. She struggled recently with some cancer. He is a retired teacher. FAMILY HISTORY: Noncontributory. REVIEW OF SYSTEMS: Negative for diabetes, neurologic problems, vascular problems. He is on Coumadin. He has atrial fibrillation and also has a history of DVT, PE. PHYSICAL EXAMINATION: GENERAL: Reveals a pleasant, middle-aged male. He looks to be in pretty good health. HEAD, EYES, EARS, NOSE, AND THROAT EXAMINATION: Benign. NECK: Supple. No lymphadenopathy. LUNGS: Clear to auscultation. HEART: Has an irregularly irregular rhythm. ABDOMEN: Soft, nontender, nondistended. EXTREMITY EXAMINATION: Grossly neurovascularly intact except as follows: Examination of the left leg reveals the patient walks with a markedly antalgic gait. He comes in using a cane. He is several centimeters short on the left side compared to the right. He has got a very stiff hip with internal rotation -20. Very minimal external rotation as well. Very minimal motion of his hip at all. He is neurologically intact. X-RAYS: X-rays of the left hip were reviewed. It shows advanced left hip DJD. He has got complete loss of his joint space circumferentially. He has got significant osteophytes around the femoral head and acetabulum. ASSESSMENT: A 66-year-old gentleman 5 years for right hip replacement with advanced left hip degenerative joint disease. He describes it has gotten worse over time. He was planning on having his hip replaced previously, but had a PE and then his got ill. He would now like to proceed with hip replacement. PLAN: We are going to take him to the operating room and do a left total hip replacement. The risks and benefits of this procedure were explained to the patient including but not limited to DVT, PE, , infection, neurological injury, vascular injury, bleeding problem, pain, limited range of motion, stiffness, fracture, leg length inequality, nerve palsy, dislocation and need for revision surgery, etc. I did talk to him about having increased risk of blood clot due to his previous DVT, PE. He is on chronic Coumadin and will treat him aggressively prophylactically postop. PLAN: We will take him to the operating room and do a left total hip replacement. The risks and benefits of this procedure were explained to the patient including but not limited to DVT, PE, , infection, neurological injury, vascular injury, bleeding problem, pain, limited range of motion, stiffness, fracture, leg length inequality, nerve palsy, need for blood transfusion, etc. The patient understands and desires to proceed. Informed consent was obtained. He is going through the Coumadin clinic and will stop Coumadin 5 days preop. He he going to be put on Lovenox and will stop that 24 hours preop. He will take his metoprolol the morning of surgery. We will also need a stat PT and INR the morning of surgery. As far as discharge plans, he is planning to be discharged to home using [facility] home health program.
[~2017-06-09] VITALS: Ht 193 cm; Wt 117.0 kg
[2017-06-09] VITALS (14 sets, daily range): BP systolic 101–131; BP diastolic 66–87; PULSE 71–110; TEMP 36.3–36.8; O2SAT 94–99; Ht 193 cm; Wt 117.0 kg
[~2017-06-09 10:28] MED LIST changes: +ACETAMINOPHEN 500 MG TAB PO SCH; +BUPIVACAINE 0.5 % 5 MG/1 ML PF 10ML VIAL ONE; +CEFAZOLIN 2000 MG/60 ML D5W 60 ML IV SCH; +FAMOTIDINE 20 MG TAB PO SCH; -GABA-112 PO; +GABAPENTIN 300 MG CAP PO SCH; -HYDR-4079 PO; +LACTATED RINGER'S 1000ML 1,000 ML IV SCH; +LACTATED RINGER'S 1000ML 500 ML IV ONE; +LACTATED RINGER'S 1000ML IV SCH; -LEVO1TAB33 PO; +METOCLOPRAMIDE HCL 10 MG TAB PO SCH; -NTRC PO; +SCOPOLAMINE 1.5 MG TDSY TD SCH; +TRANEXAMIC ACID INJ 1,000 MG in SODIUM CHLORIDE 0.9% 100ML 100 ML IV SCH; -ULT/50 PO
[2017-06-09] MEDS ORDERED: ATROPINE SULFATE 0.1 MG/ML 5ML SYR IV PRN (10:45)
[2017-06-09] MEDS ORDERED: EpHEDrine SULFATE INJ 50 MG/ML AMP IV PRN ×2 (10:45→13:30)
[2017-06-09] MEDS ORDERED: ONDANSETRON INJ 2 MG/ML 2 ML VIAL IV PRN ×2 (10:45→13:30)
[2017-06-09] MEDS ORDERED: OXYC1TAB3 PO (11:08)
[2017-06-09 11:40] LABS: PROTHROMBIN TIME (PATIENT) 10.6 SECONDS (9.0-12.0)
[2017-06-09] MEDS ORDERED: ENOX40IN SQ (11:46)
[2017-06-09] MEDS ORDERED: MIDAZOLAM HCL 1 MG/ML 2ML VIAL ONE ×3 (12:09→13:36)
[2017-06-09] MEDS ORDERED: FENTANYL CITRATE INJ 50 MCG/1 ML 2 ML VIAL ONE ×2 (12:09→12:30)
[2017-06-09] MEDS ORDERED: MoRPHine SULFATE PF 1 MG/ML 10 ML AMP/VIAL ONE (12:29)
[2017-06-09] MEDS ORDERED: BUPIVACAINE/EPINEPHRINE 0.5% MPF 1:200,000 30 ML VIAL ONE (13:14)
[2017-06-09] MEDS ORDERED: BACITRACIN 50000 UNIT VIAL ONE (13:14)
--- NOTE | 2017-06-09 13:25 | History & Physical Bridge Note ---
H&P Re-Evaluation Bridge Note: I have examined the patient, reviewed the History & Physical and in the interval since the performance of the History & Physical I have noted the following changes of clinical significance: No changes noted
[2017-06-09] MEDS ORDERED: SODIUM CHLORIDE 0.9% 1000ML 1,000 ML IV PRN (13:28)
[2017-06-09] MEDS ORDERED: LACTATED RINGER'S 1000ML 500 ML IV PRN (13:28)
[2017-06-09] MEDS ORDERED: NALOXONE HCL INJ 0.08 MG in SYRINGE 1.8 ML IV PRN (13:28)
[2017-06-09] MEDS ORDERED: NALOXONE HCL INJ 1 MG in SODIUM CHLORIDE 0.9% 1000ML 1,000 ML IV PRN (13:28)
[2017-06-09] MEDS ORDERED: MoRPHine SULFATE 2 MG/ML CARP IV PRN (13:30)
[2017-06-09] MEDS ORDERED: DiphenhydrAMINE HCL 50 MG/ML VIAL IV PRN (13:30)
[2017-06-09] MEDS ORDERED: NALBUPHINE HCL INJ 10 MG/ML AMP IV PRN (13:30)
[2017-06-09] MEDS ORDERED: NALOXONE HCL 0.4 MG/1 ML VIAL/CARP IV PRN (13:30)
[2017-06-09] MEDS ORDERED: NO NARCOTICS OR SEDATIVES SCH (13:30)
[2017-06-09] MEDS ORDERED: MoRPHine SULFATE PF 1 MG/ML 10 ML AMP/VIAL EPI PRN (13:30)
[2017-06-09] MEDS ORDERED: NURSING VERBAL MED ORDER ONE (14:00)
[2017-06-09] MEDS ORDERED: PROPOFOL IV EMULSION 10 MG/ML 20 ML VIAL IV ONE ×2 (14:06→15:14)
[2017-06-09] MEDS ORDERED: ESMOLOL HCL 10 MG/ML 10 ML VIAL ONE (14:47)
[2017-06-09] MEDS ORDERED: PHENYLEPHRINE 100MCG/ML 5ML SYR ONE (14:47)
[2017-06-09] MEDS ORDERED: EpHEDrine SULFATE INJ 50 MG/ML AMP ONE (14:47)
--- NOTE | 2017-06-09 15:18 | [facility] Post Operative Brief Note ---
Immediate Operative Summary Operative Date Jun 09, 2017. Pre-Operative Diagnosis Advanced degenerative joint disease left hip Post-Operative Diagnosis Same Procedure(s) Performed Left total hip arthroplasty Surgeon Dr Rosales Sound Technician Supervisor Surgeon(s) Clem Nolan PA-C Estimated Blood Loss 500ML Findings Left Hip DJD Fluids (cc crystalloids) 2300 cc Specimens A. Left femoral head Drains None Anesthesia Spinal Complication(s) None Disposition Recovery Room / PACU
[2017-06-09] MEDS ORDERED: TAMSULOSIN HCL 0.4 MG CAP PO PRN (15:30)
[2017-06-09] MEDS ORDERED: METOCLOPRAMIDE HCL INJ 5 MG/ML 2 ML VIAL IV PRN (15:30)
[2017-06-09] MEDS ORDERED: ALUMINUM/MAGNESIUM/SIMETH (MAALOX MAX) 30 ML UDC PO PRN (15:30)
[2017-06-09] MEDS ORDERED: NO NSAIDS SCH (15:30)
[2017-06-09] MEDS ORDERED: SILVER SULFADIAZINE 1% CR 50 GM JAR EXT PRN (15:30)
[2017-06-09] MEDS ORDERED: BISACODYL 10 MG SUPP PR PRN (15:30)
[2017-06-09] MEDS ORDERED: MAGNESIUM HYDROXIDE SUSP 30 ML UDC PO PRN (15:30)
--- NOTE | 2017-06-09 16:00 | Anesthesiology Progress Note ---
Anesthesia Post Op Note Date & Time Jun 09, 2017 at 15:59 Vital Signs Pain Intensity: 0 Vital Signs Past 12 Hours Date Time Temp Pulse Resp B/P (MAP) Pulse Ox O2 Delivery O2 Flow Rate FiO2 06/09/17 15:51 36.3 87 16 106/70 (75) 96 Nasal Cannula 2 06/09/17 15:47 88 14 93 06/09/17 15:47 85 14 06/09/17 15:46 107/71 06/09/17 15:42 97 21 06/09/17 15:42 97 21 96 06/09/17 15:41 99/67 06/09/17 15:40 83 8 06/09/17 15:40 80 8 95 06/09/17 15:36 111/69 06/09/17 15:35 82 18 06/09/17 15:35 84 18 93 06/09/17 15:31 99/71 06/09/17 15:30 96 13 06/09/17 15:30 96 13 96 06/09/17 15:26 92/58 06/09/17 15:25 99 12 06/09/17 15:25 100 12 92 06/09/17 15:21 101/69 06/09/17 15:20 94 13 93 06/09/17 15:20 36.1 99 14 101/69 92 Room Air 06/09/17 15:20 96 13 06/09/17 10:45 36.8 71 20 124/87 98 Room Air Notes Mental Status: alert / awake / arousable, participated in evaluation Pt Amnestic to Procedure: Yes Nausea / Vomiting: adequately controlled Pain: adequately controlled Airway Patency, RR, SpO2: stable & adequate BP & HR: stable & adequate Hydration State: stable & adequate Neuraxial Anesthesia: was administered, sensory block is resolving Anesthetic Complications: no major complications apparent
--- NOTE | 2017-06-09 16:34 | DIAGNOSTIC IMAGING REPORT ---
AP PELVIS AND LEFT HIP 2 VIEWS CLINICAL HISTORY: Postoperative examination degenerative arthritis. COMPARISON STUDY: Outside the graft dated 05/19/2017 FINDINGS: The patient's total right hip arthroplasty remains unchanged in appearance. There is evidence for interval total left hip arthroplasty. The femoral and acetabular components appear well seated. There are no acute fractures. There are no dislocations. There are overlying skin savanah. There is air within the soft tissues consistent with recent surgery. IMPRESSION: Postsurgical changes of a total left hip arthroplasty. Electronically signed by: Dakota Cazares M.D. 06/09/2017 4:32 PM Dictated Date/Time: 06/09/2017 4:31 PM
[2017-06-09] MEDS: CHECK SCOPOLAMINE PATCH PLACEMENT SCH ×2 (17:14→22:30)
[2017-06-09] MEDS: D5W AND 1/2NSS + 20MEQ KCL 1,000 ML IV SCH ×2 (17:27→23:38)
[2017-06-09] MEDS ORDERED: WARFARIN SOD 5 MG TAB PO ONE (17:30)
--- NOTE | 2017-06-09 19:43 | OPERATIVE REPORT ---
DATE OF OPERATION: 06/09/2017 SURGEON: Dr. Nick Rosales. MATERIALS SCIENTIST: Sterling Nolan.ELIZABETH. PREOPERATIVE DIAGNOSIS: Left hip degenerative joint disease. POSTOPERATIVE DIAGNOSIS: Same. PROCEDURE PERFORMED: Left uncemented ceramic on highly cross-linked polyethylene total hip arthroplasty. COMPLICATIONS: None. ESTIMATED BLOOD LOSS: 500 mL FLUID REPLACEMENT: 2300 mL crystalloid fluid replacement. ANESTHESIA: Spinal. DRAINS: None. SPECIMENS: Left femoral head sent for pathology. OPERATIVE INDICATIONS: The patient is a 66-year-old black gentleman who has had a long history of hip disease. He underwent a right hip replacement about 7 years ago. This was complicated by a DVT and PE. He has been on chronic Coumadin therapy ever since. He was planning on having his left hip replaced several years ago, but his got ill with cancer and he had to put it off. He has become more and more debilitated by this reason as walking down to less than a block, he has to use assistance devices to get around. The patient now elected to proceed with total hip arthroplasty. OPERATIVE FINDINGS: Operative findings revealed advanced left hip DJD. He had extensive grade 4 changes throughout the entire femoral head and acetabulum. A large medial osteophyte. He had large osteophytes around the femoral head and acetabulum. He had flattening of the femoral head. He had a large hip joint effusion. OPERATIVE IMPLANTS: Operative implants consisted of: 1. Biomet G7 size 60 mm acetabular shell. 2. An apex hole eliminator. 3. A 6.5 cancellous acetabular screws, 1 at 35 mm length and 1 at 20 mm in length. 4. A highly cross-linked polyethylene liner with a 60 mm outer diameter and 36 mm inner diameter. 5. A DePuy size 16.5 large stature AML femoral stem with a standard offset. 6. A +8.5/36 mm ceramic articular ball. OPERATIVE PROCEDURE: The patient was taken to the operating room, identified and placed on the operating table in supine position. All contact areas were appropriately padded. IV antibiotics were provided by the anesthesia team. A spinal anesthetic had been implemented in the holding area. Patel catheter was placed in sterile fashion. The patient was then placed in the right lateral decubitus position. An axillary roll was placed. [facility] hip positioner was used for positioning. The left hip and leg were then prepped and draped in usual sterile fashion. Posterolateral approach to the left hip was then performed through a curvilinear incision centered over the greater trochanter. Sharp dissection was carried out through the subcutaneous tissues down to the level of the IT band and gluteal fascia. The IT band and gluteal fascia was incised longitudinally in line with skin incision. The greater trochanteric bursa was excised. The piriformis and external rotators were tagged and taken off the posterior aspect of the femur. Great care was taken throughout the procedure to protect the sciatic nerve at all times. Posterior capsulotomy was then performed leaving a large flap for later repair. Hip was internally rotated and dislocated. Femoral neck osteotomy cut was made with the final cut 18 mm above the lesser trochanter. Femoral head was removed and sent for pathology. The femur was retracted anteriorly. Attention was then drawn to the acetabulum. The acetabular labrum was excised. Multiple osteophytes were excised from the anterior and inferior aspect of the acetabulum. Upon doing this, we did hit some large bleeding vessels which I spent most of the time cauterizing and meticulously obtaining hemostasis. I then reamed the acetabulum beginning with a size 53 and progressing up to a 59. A 60 mm Biomet G7 acetabular shell was then placed in about 40 degrees of lateral opening and 20 degrees of anteversion. It was fixed with two 6.5 cancellous acetabular screws. Some osteophytes were taken off anteriorly. Attention was then drawn to the femur. The proximal femur was then entered with the cookie cutter followed by canal finder and lateralizing reamer. Sequential reaming of the femur was then performed beginning with a size 10 and progressing up to a 16. We really did start getting chatter to about 15, so I used a 16.5 stem. I then broached beginning with a size 12 small and progressing up to a 16.5 large stem. We got good metaphyseal fit. I did not think it could quite get this down to the calcar cut, but very close. I then trialed the hip. Concerning this neck cut was a little lower than the previous one from the other side, we elected to use a little bit longer neck length. The +8.5/36 mm articular ball provided full stability and full extension and external rotation, flexion and internal rotation to 50+ degrees. With the shorter neck length, the soft tissue tension was a little bit lax and I thought his leg lengths were a little short. We elected to use these implants. Grade consideration was taken to try and avoid any undue stress the sciatic nerve has as he was about 2 cm short on this side and I did not want lengthen him too much. We elected to use these implants. All trial implants were removed. An apex hole eliminator was placed. A highly cross-linked polyethylene liner was placed. A 16.5 large stature AML femoral stem was impacted in position. I did ream down the canal with a 16.5 reamer about [address] the canal due to the initial very tight fit. We got a good fit with the implant. A+8.5/36 mm ceramic articular ball was placed. Hip was located and once again found to be stable. Attention was then drawn toward closing. The wound was irrigated with copious amounts of pulsatile lavage solution. I did inject locally with 60 mL of 0.5% Marcaine with epinephrine. The wound was once again irrigated. The IT band and gluteal fascia were then closed with #1 PDS suture in a running fashion. The subcutaneous tissues were then closed with 2-0 Dexon suture in a buried interrupted fashion. The skin was closed in 2 layers with the deep layer #1 Vicryl sutures, subcutaneous tissues with 2-0 Dexon suture in a buried interrupted fashion. The skin was closed with skin savanah. The leg was then cleaned and dried and a sterile dressing of Xeroform, 4 x 4s, ABD pad and foam tape was applied. The patient was then transferred to the recovery room in stable condition. The patient tolerated the procedure well with no complications. All needle and sponge counts were correct at the end of the operation. I attest to the content of the Intraoperative Record and any orders documented therein. Any exceptions are noted below. WALESKA
[2017-06-09] MEDS: CEFAZOLIN IV 2,000 MG in DEXTROSE 5% 50ML 50 ML IV SCH (21:07)
[2017-06-09] MEDS: SENNA 8.6 MG TAB PO SCH (21:08)
[2017-06-09] MEDS: GABAPENTIN 300 MG CAP PO SCH (21:08)
[2017-06-09] MEDS: ASPIRIN 325 MG ECTAB PO SCH (21:08)
[2017-06-09] MEDS: METOPROLOL SUCC 25MG EXT REL TAB PO SCH (21:08)
[2017-06-09] MEDS: ACETAMINOPHEN 500 MG TAB PO SCH (21:08)
[2017-06-09] MEDS: DOCUSATE SODIUM 100 MG CAP PO SCH (21:08)
[2017-06-10] VITALS (23 sets, daily range): BP systolic 99–144; BP diastolic 55–78; PULSE 84–123; TEMP 36.3–37.6; O2SAT 93–98
--- NOTE | 2017-06-10 03:03 | Medical Consult ---
Consultation Date of Consultation: Jun 10, 2017. Attending Physician: Nick Rosales M.D. Reason for Consultation: Tachycardia History of Present Illness 66 year old male s/p L total hip arthroplasty who has persistent tachycardia post op Patient went for elective total left hip arthroplasty this afternoon with Dr. Rosales. The surgery went successfully and the patient has been given intraspinal morphine post op for pain control. At 1030 pm the patients HR began to rise to 106 and by 1am his heart rate was consistently in the 120's. The patient has a history of DVT w/ PE when he had his right hip replacement in 2011. He also has a history of atrial fibrillation for which he takes Warfarin 15mg daily. He stopped taking his Warfarin 5 days before surgery and was bridged with lovenox which he stopped 24 hours pre-op. His INR on the morning of surgery was 1.0. An EKG was done at the bedside which showed sinus tachycardia with a rate of 116 The patient was examined at the bedside at 2am. He denied any shortness of breath, palpitations, chest pain, hip pain, fevers, chills, sweats, cough, headache, slurred speech, arm weakness or leg weakness Past Medical/Surgical History Medical Problems: (1) Cellulitis of right ankle Status: Acute (2) DVT, lower extremity Status: Acute (3) Positive Lyme disease serology Status: Acute Social History Smoking Status: Never Smoker Drug Use: none Marital Status: Housing Status: lives with family Occupation Status: employed Allergies Coded Allergies: Iron (Verified Adverse Reaction, Unknown, TACHYCARDIA, 06/09/17) Current Inpatient Medications Current Inpatient Medications Medications (Trade) Dose Ordered Sig/Gege Route Start Time Stop Time Status Last Admin Dose Admin Lactated Ringer's 1,000 ml @ 15 mls/hr Q24H IV 06/09/17 06:00 06/10/17 05:59 Miscellaneous (Remove Transderm-Scop Patch) 1 ea Q72H N/A 06/12/17 06:00 06/12/17 06:01 Miscellaneous Information (Check Scopolamine Patch Placement) 1 ea QS N/A 06/09/17 16:00 06/12/17 05:59 06/09/17 22:30 1 EA Naloxone HCl (Narcan Inj) 0.1 mg UD PRN IV 06/09/17 13:30 06/10/17 13:30 Diphenhydramine HCl (Benadryl Inj) 25 mg Q6H PRN IV 06/09/17 13:30 06/10/17 13:30 06/09/17 22:28 25 MG Nalbuphine HCl (Nubain Inj) 5 mg Q10M PRN IV 06/09/17 13:30 06/10/17 13:30 Naloxone HCl 1 mg/ Sodium Chloride 1,002.5 ml @ 50 mls/hr Q20H3M PRN IV 06/09/17 13:28 06/10/17 13:30 Ondansetron HCl (Zofran Inj) 4 mg Q6H PRN IV 06/09/17 13:30 06/10/17 13:30 Miscellaneous Information (Dc Intraspinal Morphine) 1 ea 06/10/17@1330 N/A 06/10/17 13:30 06/10/17 13:31 Miscellaneous Information (No Narcotics Or Sedatives) 1 ea UD N/A 06/09/17 13:30 06/10/17 13:30 Naloxone HCl 0.08 mg/Syringe 2 ml @ 1 mls/min Q2M PRN IV 06/09/17 13:28 06/10/17 13:30 Morphine Sulfate (MoRPHine SULFATE INJ) 2 mg Q6H PRN IV 06/09/17 13:30 06/10/17 13:30 Lactated Ringer's 500 ml @ 999 mls/hr Q31M PRN IV 06/09/17 13:28 06/10/17 13:30 Ephedrine Sulfate (EpHEDrine SULFATE INJ) 10 mg Q5M PRN IV 06/09/17 13:30 06/10/17 13:30 Morphine Sulfate (Duramorph Pf Inj) 0.2 mg TODAY PRN EPI 06/09/17 13:30 06/10/17 13:30 Sodium Chloride 1,000 ml @ 15 mls/hr Q24H PRN IV 06/09/17 13:28 06/10/17 13:30 Potassium Chloride/Dextrose/ Sod Cl 1,000 ml @ 150 mls/hr Q6H40M IV 06/09/17 17:30 06/10/17 15:18 06/09/17 23:38 150 MLS/HR Miscellaneous Medication (No Nsaids) 1 ea UD N/A 06/09/17 15:30 07/09/17 15:29 Oxycodone HCl (Roxicodone Immediate Rel Tab) 1 TABLET FOR PAIN RATING... Q4H PRN PO 06/10/17 13:31 06/24/17 13:30 Morphine Sulfate (MoRPHine SULFATE INJ) 2 mg Q1H PRN IV 06/10/17 13:31 06/24/17 13:30 Acetaminophen (Tylenol Tab) 1,000 mg Q8H PO 06/09/17 22:00 07/09/17 15:29 06/09/17 21:08 1,000 MG Magnesium Hydroxide (Milk Of Magnesia Susp) 30 ml Q6H PRN PO 06/09/17 15:30 07/09/17 15:29 Bisacodyl (Dulcolax Supp) 10 mg DAILY PRN WI 06/09/17 15:30 07/09/17 15:29 Senna (Senokot Tab) 17.2 mg HS PO 06/09/17 21:00 07/09/17 20:59 06/09/17 21:08 17.2 MG Docusate Sodium (coLACE CAP) 100 mg BID PO 06/09/17 21:00 07/09/17 20:59 06/09/17 21:08 100 MG Diphenhydramine HCl (Benadryl Cap) 25 mg Q8H PRN PO 06/10/17 13:31 07/10/17 13:30 Diphenhydramine HCl (Benadryl Inj) 25 mg Q8H PRN IV 06/10/17 13:31 07/10/17 13:30 Al Hydrox/Mg Hydrox/Simethicone (Maalox Max Susp) 15 ml Q4H PRN PO 06/09/17 15:30 07/09/17 15:29 Zolpidem Tartrate (Ambien Tab) 5 mg HSZ PRN PO 06/10/17 13:31 07/10/17 13:30 Multivitamins (Multivitamin Tab) 1 tab QAM PO 06/10/17 09:00 07/10/17 08:59 Ondansetron HCl (Zofran Inj) 4 mg Q6H PRN IV 06/10/17 13:31 07/10/17 13:30 Metoclopramide HCl (Reglan Inj) 10 mg Q6H PRN IV 06/09/17 15:30 07/09/17 15:29 Pantoprazole Sodium (Protonix Tab) 40 mg QAM PO 06/10/17 09:00 07/10/17 08:59 Silver Sulfadiazine (Silvadene 1% Crm 50GM Jar) 1 appln BID PRN EXT 06/09/17 15:30 07/09/17 15:29 Aspirin (Ecotrin Tab) 325 mg BID PO 06/09/17 21:00 07/09/17 20:59 06/09/17 21:08 325 MG Tamsulosin HCl (Flomax Cap) 0.4 mg QAM PRN PO 06/09/17 15:30 07/09/17 15:29 Cefazolin Sodium 2000 mg/Dextrose 60 ml @ 100 mls/hr Q8H IV 06/09/17 22:00 06/10/17 06:35 06/09/17 21:07 100 MLS/HR Allopurinol (Zyloprim Tab) 100 mg QAM PO 06/10/17 09:00 07/10/17 08:59 Colchicine (Colchicine Tab) 0.6 mg QAM PO 06/10/17 09:00 07/10/17 08:59 Gabapentin (Neurontin Cap) 300 mg HS PO 06/09/17 21:00 07/09/17 20:59 06/09/17 21:08 300 MG Metoprolol Succinate (Toprol Xl Tab) 25 mg BID PO 06/09/17 21:00 07/09/17 20:59 06/09/17 21:08 25 MG Oxycodone HCl (Roxicodone Immediate Rel Tab) 10 mg Q6H PRN PO 06/10/17 13:31 06/24/17 13:30 Enoxaparin Sodium (Lovenox Inj) 40 mg DAILY SQ 06/10/17 16:00 07/10/17 15:59 Tapentadol (Nucynta Er Tab) 50 mg BID PO 06/10/17 21:00 07/10/17 20:59 Review of Systems please see HPI for ROS Constitutional: No fever, No chills, No sweats Respiratory: No cough, No sputum, No shortness of breath Cardiovascular: No chest pain, No edema, No claudication, No palpitations Abdomen: No pain, No nausea, No vomiting, No diarrhea, No constipation Musculoskeletal: No joint pain, No muscle pain, No swelling, No calf pain Neurologic: No paralysis, No weakness Psychiatric: No anxiety Hematologic / Lymphatic: No abnormal bleeding/bruising, No clotting problems, No night sweats Integumentary: No rash, No itch, No new/changing skin lesions Physical Exam Date Time Temp Pulse Resp B/P (MAP) Pulse Ox O2 Delivery O2 Flow Rate FiO2 06/10/17 01:24 123 123 06/10/17 01:15 122 06/10/17 01:08 120 06/10/17 00:51 117 06/10/17 00:34 118 06/10/17 00:29 18 94 06/09/17 23:07 36.8 110 18 118/76 (90) 94 Nasal Cannula 2.0 06/09/17 22:52 Nasal Cannula 06/09/17 22:30 16 97 06/09/17 22:24 106 131/69 (89) 06/09/17 21:30 16 98 06/09/17 20:30 16 99 06/09/17 20:23 74 16 121/74 (90) 98 Nasal Cannula 2.0 06/09/17 19:42 36.7 71 16 109/71 (84) 98 Nasal Cannula 2.0 06/09/17 19:30 16 98 06/09/17 18:30 17 98 06/09/17 18:28 36.3 71 17 118/80 (93) 98 Nasal Cannula 2.0 06/09/17 17:30 16 97 06/09/17 17:30 72 16 109/75 (86) 97 Nasal Cannula 2.0 06/09/17 17:00 75 14 108/76 (87) 95 Nasal Cannula 2.0 06/09/17 16:30 94 Nasal Cannula 2.0 06/09/17 16:30 36.3 75 14 101/66 (78) 94 Nasal Cannula 2.0 06/09/17 16:30 94 Nasal Cannula 2.0 06/09/17 16:23 74 16 06/09/17 16:23 88 16 95 06/09/17 16:18 85 11 06/09/17 16:18 86 11 98 06/09/17 16:16 95/64 06/09/17 16:13 74 20 96 06/09/17 16:13 64 20 1517 16:11 112/70 06/09/17 16:08 79 14 06/09/17 16:08 85 14 94 1517 16:06 100/70 15/17 16:03 76 16 96 17 16:03 75 16 15 16:01 112/72 1517 15:58 87 12 1517 15:58 89 12 96 1517 15:56 106/70 1517 15:53 91 13 95 1517 15:53 92 13 15 15:51 36.3 87 16 106/70 (75) 96 Nasal Cannula 2 06/09/17 15:51 111/72 06/09/17 15:48 85 7 15 15:48 85 7 94 06/09/17 15:47 88 14 93 06/09/17 15:47 85 14 06/09/17 15:46 107/71 06/09/17 15:42 97 21 1517 15:42 97 21 96 15 15:41 99/67 1517 15:40 83 8 15 15:40 80 8 95 1517 15:36 111/69 1517 15:35 82 18 1517 15:35 84 18 93 1517 15:31 99/71 1517 15:30 96 13 06/09/17 15:30 96 13 96 1517 15:26 92/58 1517 15:25 99 12 1517 15:25 100 12 92 1517 15:21 101/69 15/17 15:20 94 13 93 1517 15:20 36.1 99 14 101/69 92 Room Air 1517 15:20 96 13 1517 10:45 36.8 71 20 124/87 98 Room Air General Appearance: WD/WN, no apparent distress Respiratory/Chest: no respiratory distress, no accessory muscle use, + decreased breath sounds (decreased breath sounds at the bases) Cardiovascular: regular rate, rhythm, no edema, no JVD, no murmur Abdomen/GI: normal bowel sounds, non tender, soft Extremities/Musculoskelatal: no calf tenderness, no pedal edema, non-tender, + pertinent finding (left leg with bandage along lateral thigh, no erythema or cellulitis surrounding) Neurologic/Psych: alert, normal mood/affect, oriented x 3 Skin: normal color, warm/dry, no rash Laboratory Results Last 24 Hours Test 06/09/17 11:19 Prothrombin Time 10.6 SECONDS Prothromb Time International Ratio 1.0 Activated Partial Thromboplast Time 25.2 SECONDS Partial Thromboplastin Ratio 1.0 Assessment & Plan 66 year old male s/p left total hip replacement who has persistent tachycardia post op With patients history of DVT/PE in the past with his R hip replacement this is concerning that he may have another PE. His pain appears to be well controlled. He is afebrile and does appear to have an obvious source of infection. He is also well hydrated and is having good urine output. His EKG showed sinus tachycardia with non specific T wave abnormalities We will proceed with ordering a BMP as well as a CXR. If these are normal then we will go ahead and order a CT for PE protocol to assess for a pulmonary embolism. We will continue to follow the patients for his care. Resident Physician Supervision Note: I was present with Dr. Arellano during the history and exam. I discussed the case with the resident and agree with the findings and plan as documented in the note. Any exceptions or clarifications are listed here: 66 y/o M post op L THR with persistent tachycardia - denies related symptoms such as CP, SOB, subjective palpitations OE AAO x 3 S1,2 R Reduced air entry at bases - poor effort - poor air movement NT, ND No CCE P: Pt was sent for a CXR - labs were redrawn - no related abnormalities noted Subsequently sent for CTA - negative for PE - B/L atelectasis vs R consolidation No clear reason found for tachycardia - if he is developing a pneumonia this should become clinically apparent - for now we would continue IVF, check a TSH If there is no improvement, we would consider a cardio consult and possibly an echo Documented By: Scott Merida
[2017-06-10 03:30] LABS: BASO % 0.1 %; BASO ABS # 0.01 K/uL (0-0.2); COMPLETE YES; HEMATOCRIT 33.9 % (42-52); IG% 0.4 %; LYMPH % 7.5 %; LYMPH ABS # 1.02 K/uL (1.2-3.4); MEAN CELL VOLUME 89.4 fL (80-100); MEAN CORPUSCULAR HEMOGLOBIN 30.6 pg (25-34); MEAN CORPUSCULAR HGB CONC 34.2 g/dl (32-36); MEAN PLATELET VOLUME 9.7 fL (7.4-10.4); MONO % 12.1 %; NEUT % 79.9 %; PLATELET COUNT 218 K/uL (130-400); RED BLOOD COUNT 3.79 M/uL (4.7-6.1); WHITE BLOOD COUNT 13.69 K/uL (4.8-10.8)
[2017-06-10 03:38] LABS: INR 1.1 (0.9-1.1); PROTHROMBIN TIME (PATIENT) 11.3 SECONDS (9.0-12.0)
[2017-06-10 03:50] LABS: BUN/CREATININE RATIO 9.8 (10-20); CALCIUM 7.8 mg/dl (8.5-10.1); CREATININE 1.4 mg/dl (0.60-1.40); POTASSIUM 4.1 mmol/L (3.5-5.1)
[2017-06-10] MEDS ORDERED: OPTIRAY 320 IV PRN (04:30)
[2017-06-10] MEDS: ACETAMINOPHEN 500 MG TAB PO SCH ×3 (05:01→21:56)
[2017-06-10] MEDS: CEFAZOLIN IV 2,000 MG in DEXTROSE 5% 50ML 50 ML IV SCH (05:01)
[2017-06-10] MEDS: D5W AND 1/2NSS + 20MEQ KCL 1,000 ML IV SCH ×2 (05:53→12:58)
--- NOTE | 2017-06-10 06:58 | DIAGNOSTIC IMAGING REPORT ---
CHEST 2 VIEWS ROUTINE CLINICAL HISTORY: Tachycardia COMPARISON STUDY: May 19, 2017 FINDINGS: The heart is enlarged. There is elevation left hemidiaphragm. There is no focal pulmonary consolidation. There is no overt failure. There are no pleural effusions. There is mild mediastinal widening, finding which may be secondary to technical factors. There is a suspected hiatal hernia.[ IMPRESSION: 1. Cardiomegaly 2. No evidence of focal pulmonary consolidation 3. Suspected hiatal hernia 4. Elevation left hemidiaphragm 5. Mild mediastinal widening Electronically signed by: Dakota Cazares M.D. 06/10/2017 6:57 AM Dictated Date/Time: 06/10/2017 6:55 AM
[2017-06-10] MEDS: CHECK SCOPOLAMINE PATCH PLACEMENT SCH ×3 (08:15→23:57)
--- NOTE | 2017-06-10 08:28 | PROGRESS NOTE ---
DATE: 06/10/2017 SUBJECTIVE: A 66-year-old gentleman postop day 1 from a left total hip replacement. He is doing pretty well. Hip is a little sore. He has been to the CT scan overnight for a chest CT and moves around some. Denies any chest pain or shortness of breath. Not feeling dizzy or lightheaded. He was tachycardic last night, had an EKG, and was sent to the CT scan to rule out a PE. Once again, he has no symptoms. He does have some known thromboses in his legs. OBJECTIVE: VITAL SIGNS: Temperature 36.3. Vital signs stable. Heart rate currently about 101. PHYSICAL EXAMINATION: GENERAL: Reveals a pleasant middle-aged male. He is lying in bed and looks completely comfortable. LUNGS: Clear to auscultation. HEART: Regular rate and rhythm. Heart rate is just a little on the fast side about 100. ABDOMEN: Soft, nontender, nondistended. EXTREMITIES: Grossly neurovascularly intact except as follows: Examination of the left lower extremity reveals leg lengths to be equal. Hip is located. He can dorsiflex and plantarflex his foot appropriately. His thigh is soft and supple. His bandages are dry, clean, and intact. No drainage. No signs of significant hematoma accumulation. LABORATORY DATA: Hemoglobin is 11.6, hematocrit 33.9. White cell count is slightly elevated at 13.69. INR 1.1. ASSESSMENT: A 66-year-old gentleman with a history of deep vein thrombosis and pulmonary embolism in the past, now postop day 1 from left total hip replacement, doing pretty well. His pain is reasonably well controlled. Hip is located. He is neurologically intact. He did have this tachycardia overnight, which is probably just motion likely related to surgery and hyperdynamic state postop. Chest CT results are pending. He is currently asymptomatic from that standpoint. He is at high risk for thrombosis due to his history. PLAN: 1. DVT prophylaxis with thigh-high TEDs, SCDs, and he is back on his Coumadin. He is starting Lovenox at prophylactic dose 24 hours postop. 2. PT and OT. Weightbearing as tolerated. Left total hip protocol. 3. Pain control, doing well with current pain regimen. 4. Medical management as per the medicine service. 5. Disposition: He is hoping to be discharged to home likely with some home health once adequately recovered. As far as current pulmonary status, the CT scan results are pending. [facility]
--- NOTE | 2017-06-10 08:30 | DIAGNOSTIC IMAGING REPORT ---
CT ANGIOGRAM OF THE CHEST CLINICAL HISTORY: Tachycardia status post hip surgery. Evaluate for pulmonary embolism. COMPARISON STUDY: 12/07/2016 TECHNIQUE: Following the IV administration of 107 mL of Optiray-320, CT angiogram of the thorax was performed from the thoracic inlet to the lung bases utilizing the pulmonary embolus protocol. Images are reviewed in the axial, sagittal, and coronal planes. IV contrast was administered without complication. MIP imaging was performed. A dose lowering technique was utilized adhering to the principles of ALARA. CT DOSE: 570.69 mGy.cm FINDINGS: No pathologically enlarged axillary mediastinal or hilar lymph nodes were visualized. There is dilatation of the ascending thoracic aorta which measures 44 mm in diameter. No intimal flaps are visualized. There are coronary artery calcifications present. There are no pulmonary artery filling defects to indicate acute pulmonary embolism. Evaluation is slightly limited due to respiratory motion artifact. No pleural effusions are visualized. There are bibasal atelectatic changes. There is fluid within the esophagus. IMPRESSION: 1. No CT evidence of acute pulmonary embolism 2. Bibasal atelectasis 3. Mild dilatation of the ascending thoracic aorta 4. Fluid-filled esophagus Electronically signed by: Dakota Cazares M.D. 06/10/2017 8:29 AM Dictated Date/Time: 06/10/2017 8:27 AM
[2017-06-10] MEDS: ASPIRIN 325 MG ECTAB PO SCH ×2 (08:57→21:13)
[2017-06-10] MEDS: ALLOPURINOL 100 MG TAB PO SCH (08:57)
[2017-06-10] MEDS: COLCHICINE 0.6 MG TAB PO SCH (08:57)
[2017-06-10] MEDS: PANTOprazole SOD 40 MG TAB PO SCH (08:57)
[2017-06-10] MEDS: DOCUSATE SODIUM 100 MG CAP PO SCH ×2 (08:57→21:13)
[2017-06-10] MEDS: MULTIVITAMIN TAB PO SCH (08:57)
[2017-06-10] MEDS: METOPROLOL SUCC 25MG EXT REL TAB PO SCH ×2 (08:58→21:13)
[2017-06-10] MEDS ORDERED: TAPENTADOL ER 50 MG TABCR PO SCH (09:00)
[2017-06-10] MEDS ORDERED: DC INTRASPINAL MORPHINE SCH (13:30)
[2017-06-10] MEDS ORDERED: DiphenhydrAMINE HCL 50 MG/ML VIAL IV PRN (13:31)
[2017-06-10] MEDS ORDERED: ZOLPIDEM TARTRATE 5 MG TAB PO PRN (13:31)
[2017-06-10] MEDS ORDERED: OXYCODONE HCL IR 5 MG TAB (IMMEDIATE RELEASE) PO PRN ×2 (13:31)
[2017-06-10] MEDS ORDERED: MoRPHine SULFATE 2 MG/ML CARP IV PRN (13:31)
[2017-06-10] MEDS: ONDANSETRON INJ 2 MG/ML 2 ML VIAL IV PRN ×2 (13:40→19:52)
[2017-06-10] MEDS ORDERED: WARFARIN SOD 10 MG TAB PO ONE (16:00)
[2017-06-10] MEDS: ENOXAPARIN 40 MG/0.4 ML SYR SQ SCH (16:02)
[2017-06-10] MEDS ORDERED: ACET-24 PO (20:29)
[2017-06-10] MEDS ORDERED: RXC5 PO (20:29)
--- NOTE | 2017-06-10 20:33 | Discharge Instructions ---
Discharge Instructions Date of Service Jun 10, 2017. Admission Reason for Admission: Left Hip Degenerative Joint Disease Discharge Discharge Diagnosis / Problem: Left Hip Replacement Discharge Goals Goal(s): Decrease discomfort, Improve function, Increase independence, Improve disease control, Therapeutic intervention Activity Recommendations Activity Limitations: per Instructions/Follow-up section (Total Hip Precautions ) Weightbearing Status: Left weightbearing . Instructions / Follow-Up Instructions / Follow-Up ACTIVITY RECOMMENDATIONS: Physical Therapy: * Aggressive physical therapy is not usually needed. You will learn to take care of yourself safely and walk. * Follow the "Hip Precautions Instructions." * In some cases, the social media community manager at the hospital will arrange to have a therapist come to your house for the first couple of weeks to help you learn these skills. * You need to practice on your own or with the help of a family member as needed. * When you learn these skills, most of the therapy can be done on your own. Home Exercise: * You were shown a series of exercises in the hospital. Do these exercises three to four times each day including the exercises you were shown in physical therapy. Walking: * Get up and walk several times each day. For the first four weeks, try not to stand or walk for more than one hour at a time. If you do stand or walk for more than one hour, you will not hurt anything, but your leg will likely swell. * As you feel comfortable, you may change from the walker or crutches to a cane and then to independent walking. MEDICATIONS: New Medicine: * You will likely be taking one or more of these medicines: 1. Oxycodone - Take, as directed, when you need it, every four to six hours to control your pain. 2. Coumadin - Thins your blood to lessen the chance of forming a blood clot. * The most common side effects of pain medicine and iron are nausea and constipation. If nausea or constipation is too much of a problem or if you have any questions about your new medicines or doses, call [facility] at [phone]. We will try to help you manage these issues. VERY IMPORTANT TO READ AND REVIEW" Pain: * The immediate post-operative period after hip replacement surgery is often quite painful. * You are given a prescription for pain medicine. You should take it, as directed, when you need it, especially before physical therapy and before going to bed. Pain that interferes with sleep is very common and can last several months. * You will likely need pain medicine for the first two to four weeks. It will not stop all of the pain. The pain will lessen and as you feel better, you may change to milder pain medicine such as Tylenol. * The most common side effects of pain medicine are nausea and constipation, so don't take more than you need. SPECIAL CARE INSTRUCTIONS: TEDs/Elastic Stockings: * The white elastic stockings help limit swelling and prevent blood clots from forming in your legs. The more you wear them, the more they work. * Wear them for six weeks. Prevention of Infection: * Take antibiotics one hour before any dental cleaning, dental work, urological procedure, gastrointestinal procedure or any invasive surgery in order to prevent your new joint from getting infected. * You may get the antibiotics from the doctor performing the procedure or you may call our office at before and we will call in a prescription to the pharmacy of your choice. Things to Watch For: * Drainage from the incision site that occurs more than one week after your surgery. * Severely increased leg pain or swelling. * Increased redness at the incision site. * Fever above 102 degrees Fahrenheit. * Unusual chest pain or shortness of breath. * Unusual pain or burning with urination. Call [facility] at with any of the above problems or if you have any questions about your medicines or recovery. FOLLOW UP VISIT: Make an appointment to see your doctor for approximately two weeks after surgery for a progress check and staple removal by calling the office at . Current Hospital Diet Patient's current hospital diet: Regular Diet Discharge Diet Recommended Diet: Regular Diet Procedures Procedures Performed: Left total hip arthroplasty Pending Studies Studies pending at discharge: no Medical Emergencies . Who to Call and When: Medical Emergencies: If at any time you feel your situation is an emergency, please call 201 immediately. . Non-Emergent Contact Non-Emergency issues call your: Surgeon . "Provider Documentation" section prepared by Nick Rosales. . VTE Core Measure Inpt VTE Proph given/why not?: Warfarin (Coumadin), T.Alexandrea Small, SCD's
[2017-06-10] MEDS: SENNA 8.6 MG TAB PO SCH (21:14)
[2017-06-10] MEDS: GABAPENTIN 300 MG CAP PO SCH (21:14)
[2017-06-10] MEDS: TAPENTADOL ER 50 MG TABCR PO SCH (21:15)
[2017-06-11] MEDS: ACETAMINOPHEN 500 MG TAB PO SCH ×3 (05:24→21:57)
[2017-06-11 06:16] LABS: INR 1.2 (0.9-1.1); PROTHROMBIN TIME (PATIENT) 13.3 SECONDS (9.0-12.0)
[2017-06-11 07:03] VITALS: BP 96/58; PULSE 83; TEMP 36.8; O2SAT 95
[2017-06-11] MEDS: CHECK SCOPOLAMINE PATCH PLACEMENT SCH ×3 (07:37→23:55)
--- NOTE | 2017-06-11 08:16 | PROGRESS NOTE ---
DATE: 06/11/2017 SUBJECTIVE: A 66-year-old gentleman postop from a left total hip replacement. He is postop day #2. He is doing well. Hip is sore. Pain is improved. No chest pain or shortness of breath. Not feeling dizzy or lightheaded. OBJECTIVE: VITAL SIGNS: Temperature is 36.8. Vital signs are stable. Heart rate improved at 83. GENERAL: Physical examination reveals a pleasant, middle-aged male. He is lying in bed and looks pretty comfortable. LUNGS: Clear to auscultation. HEART: Regular rate and rhythm. ABDOMEN: Soft, nontender, and nondistended. EXTREMITIES: Grossly neurovascularly intact except as follows: Examination of the left lower extremity reveals the leg to be well aligned. Dressing is clean, dry and intact. Hip is located. He is neurologically intact. LABORATORY DATA: INR is 1.2. ASSESSMENT: A 66-year-old gentleman postop day #2 from a left total hip replacement, doing pretty well. Pain seems to be improved. Heart rate is improved. Hip is located. He is neurologically intact. PLAN: 1. DVT prophylaxis including thigh-high TEDs, SCDs, and he is back on Coumadin. He is on prophylactic Lovenox until his Coumadin is therapeutic. 2. PT/OT. He can weightbear as tolerated. Left total hip protocol. 3. Pain control, doing pretty well with current pain regimen. 4. Disposition. We are planning to discharge to home with some home health once adequately recovered.
[2017-06-11] MEDS: PANTOprazole SOD 40 MG TAB PO SCH (08:50)
[2017-06-11] MEDS: TAPENTADOL ER 50 MG TABCR PO SCH ×2 (08:50→21:00)
[2017-06-11] MEDS: COLCHICINE 0.6 MG TAB PO SCH (08:51)
[2017-06-11] MEDS: ASPIRIN 325 MG ECTAB PO SCH ×2 (08:51→21:54)
[2017-06-11] MEDS: DOCUSATE SODIUM 100 MG CAP PO SCH ×2 (08:51→21:56)
[2017-06-11] MEDS: MULTIVITAMIN TAB PO SCH (08:51)
[2017-06-11] MEDS: ALLOPURINOL 100 MG TAB PO SCH (08:51)
[2017-06-11] MEDS: ENOXAPARIN 40 MG/0.4 ML SYR SQ SCH (08:52)
[2017-06-11] MEDS: METOPROLOL SUCC 25MG EXT REL TAB PO SCH ×2 (09:00→21:56)
[2017-06-11 14:52] VITALS: BP 119/76; PULSE 99; TEMP 37; O2SAT 93
[2017-06-11] MEDS ORDERED: WARFARIN SOD 10 MG TAB PO ONE (16:00)
[2017-06-11 19:45] VITALS: BP 112/70
[2017-06-11 21:44] VITALS: BP 129/74; PULSE 106
[2017-06-11] MEDS: GABAPENTIN 300 MG CAP PO SCH (21:56)
[2017-06-11] MEDS: SENNA 8.6 MG TAB PO SCH (21:56)
[2017-06-11 22:52] VITALS: BP 116/68; PULSE 89; TEMP 36.9; O2SAT 97
[2017-06-12] MEDS: ACETAMINOPHEN 500 MG TAB PO SCH ×2 (05:53→13:27)
[2017-06-12 06:36] VITALS: BP 109/66; PULSE 79; TEMP 36.5; O2SAT 95
[2017-06-12 06:59] LABS: INR 1.4 (0.9-1.1); PROTHROMBIN TIME (PATIENT) 14.9 SECONDS (9.0-12.0)
[2017-06-12] MEDS: DOCUSATE SODIUM 100 MG CAP PO SCH (07:24)
[2017-06-12] MEDS: MULTIVITAMIN TAB PO SCH (07:25)
[2017-06-12] MEDS: COLCHICINE 0.6 MG TAB PO SCH (07:25)
[2017-06-12] MEDS: ASPIRIN 325 MG ECTAB PO SCH (07:25)
[2017-06-12] MEDS: PANTOprazole SOD 40 MG TAB PO SCH (07:26)
[2017-06-12] MEDS: ALLOPURINOL 100 MG TAB PO SCH (07:26)
[2017-06-12] MEDS: TAPENTADOL ER 50 MG TABCR PO SCH (07:26)
[2017-06-12] MEDS: METOPROLOL SUCC 25MG EXT REL TAB PO SCH (07:26)
[2017-06-12] MEDS: ENOXAPARIN 40 MG/0.4 ML SYR SQ SCH (07:27)
--- NOTE | 2017-06-12 07:59 | PROGRESS NOTE ---
DATE: 06/12/2017 SUBJECTIVE: A 66-year-old gentleman postop day 3 from a left total hip replacement. He has not done well in therapy. Denies any other new complaints. No chest pain or shortness of breath. Not feeling dizzy or lightheaded. OBJECTIVE: VITAL SIGNS: Temperature 36.5. Vital signs stable. PHYSICAL EXAMINATION: GENERAL: Reveals a healthy, pleasant, middle-aged male. He is sitting up in bed and looks pretty comfortable. EXTREMITIES: Examination of the left hip reveals incision to be clean, dry and intact. He does have some mild swelling. His hip is located. He is neurologically intact. LABORATORY DATA: INR 1.4. ASSESSMENT: A 66-year-old gentleman postop day 3 from a left total least in depth. He seems to be getting better but slowly as far as rehab, which is a little difficult to explain in this relatively young gentleman. PLAN: 1. DVT prophylaxis including thigh-high TEDs, SCDs, and Coumadin. He will continue on prophylactic Lovenox until his INRs is in the therapeutic range. 2. PT and OT. Weight bear as tolerated. Left total knee protocol. 3. Pain control. Doing well with current pain regimen. Clearly limiting pain medicines to avoid any confusion, any issues as far as rehab with pain meds. 4. Disposition: We are working on reconsult social security specialist. He is going to talk to his about possible rehab stay versus discharged to home.
--- NOTE | 2017-06-12 10:02 | Anesthesiology Progress Note ---
Anesthesia Post Op Note Date & Time Jun 12, 2017 at 10:01 Vital Signs Pain Intensity: 0.0 Vital Signs Past 12 Hours Date Time Temp Pulse Resp B/P (MAP) Pulse Ox O2 Delivery O2 Flow Rate FiO2 06/12/17 08:00 Room Air 06/12/17 06:36 36.5 79 16 109/66 (80) 95 Room Air 06/11/17 23:55 Room Air 06/11/17 22:52 36.9 89 16 116/68 (84) 97 Room Air Notes Mental Status: alert / awake / arousable, participated in evaluation Pt Amnestic to Procedure: Yes Nausea / Vomiting: adequately controlled Pain: adequately controlled Airway Patency, RR, SpO2: stable & adequate BP & HR: stable & adequate Hydration State: stable & adequate Neuraxial Anesthesia: sensory block resolved Anesthetic Complications: no major complications apparent
[2017-06-12] MEDS ORDERED: ACETAMINOPHEN 500 MG TAB PO ONE (13:25)
[2017-06-12 15:24] VITALS: BP 109/66; PULSE 79; TEMP 36.5; O2SAT 95
[2017-06-12 15:33] VITALS: BP 97/62; PULSE 76; TEMP 36.3; O2SAT 96
[2017-06-12] MEDS ORDERED: WARFARIN SOD 5 MG TAB PO SCH (16:00)
[2017-06-12 16:12] VITALS: BP 103/65; PULSE 75
--- NOTE | 2017-06-15 00:17 | DISCHARGE SUMMARY ---
ADMITTING PHYSICIAN AND SURGEON: Dr. Rosales. ADMITTING DIAGNOSIS: Left hip degenerative joint disease. SURGERY PERFORMED: Left total hip arthroplasty. SECONDARY DIAGNOSES: Include hypertension, atrial fibrillation, deep vein thrombosis, pulmonary embolism, gout. CONSULTS: Dr. Davison for elevated pulse postoperatively. HISTORY AND PHYSICAL EXAMINATION: Well documented in the patient's chart. HOSPITAL COURSE: The patient was admitted on 06/09/2017, underwent total hip arthroplasty, tolerated the procedure well. There were no complications. He was transferred to the PACU postoperatively and later to the orthopedic floor for further care. He was given Ancef for antibiotic prophylaxis, YAIR stockings, SCDs, Coumadin and Lovenox for DVT prophylaxis. Hemoglobin, hematocrit and vital signs were monitored during his hospital stay and remained stable. He developed some postoperative anemia, did not require any blood transfusions. He did have some tachycardia postoperatively on an EKG. The hospitalist service was consulted and a chest CT scan was obtained as well, showed no CT evidence of acute pulmonary embolism. There were no complications during his hospital stay. By postoperative day 3, he was tolerating a regular diet, pain was controlled with oral pain medicine. He was participating in physical therapy and had no signs or symptoms of deep vein thrombosis. On postop day 3, he was discharged home and set up with home health services, given printed discharge instructions including new prescriptions for extra strength Tylenol and oxycodone. Continue his home medicines including warfarin. Continue physical therapy, weightbearing as tolerated, total hip precautions, YAIR stockings. He will follow up in 10-12 days or sooner if there are any problems or concerns.
[2017-07-07] MEDS ORDERED: COLC0.6T54 PO (11:24)
[2017-07-07] MEDS ORDERED: DOCU-94 PO (14:26)
[2017-07-07] MEDS ORDERED: GABA-112 PO (15:54)
[2017-07-07] MEDS ORDERED: ALLO100T PO (15:56)
== END 2017-06-12 17:22 | disposition home health service (06) | DRG 470 ==
LOC: C.ACU 10:28 → C.3E 15:25 → ENRESERV 15:51 → C.3E 06-10 19:36
PROVIDERS: ADMIT Orthopaedic Surgery Sports Medicine; ATTEND Orthopaedic Surgery Sports Medicine
PROC: 0SRB04A Replacement of Left Hip Joint with Ceramic on Polyethylene Synthetic Substitute, Uncemented, Open Approach (ICD-10-PCS; principal; 2017-06-09 12:40)
DX: M16.12 Unilateral primary osteoarthritis, left hip (principal); M25.452 Effusion, left hip; R00.0 Tachycardia, unspecified; I48.91 Unspecified atrial fibrillation; I10 Essential (primary) hypertension; M10.9 Gout, unspecified; G62.9 Polyneuropathy, unspecified; N40.0 Benign prostatic hyperplasia without lower urinary tract symptoms; E66.9 Obesity, unspecified; Z68.31 Body mass index [BMI] 31.0-31.9, adult; Z96.641 Presence of right artificial hip joint; Z86.711 Personal history of pulmonary embolism; Z86.718 Personal history of other venous thrombosis and embolism; Z79.01 Long term (current) use of anticoagulants; Z79.891 Long term (current) use of opiate analgesic; Z79.899 Other long term (current) drug therapy

== ENCOUNTER → 2017-06-15 | Outpatient (CLI) | payer OTHER ==
[~2017-06-15] MED LIST changes: +ACET-24 PO; -ACETAMINOPHEN 500 MG TAB PO SCH; +ALLO100T PO; -BUPIVACAINE 0.5 % 5 MG/1 ML PF 10ML VIAL ONE; -CEFAZOLIN 2000 MG/60 ML D5W 60 ML IV SCH; +COLC0.6T54 PO; +CPR500 PO; +CYAN100020 PO; +CYCL5TAB PO; +DOCU-94 PO; +ENOX40IN SQ; -FAMOTIDINE 20 MG TAB PO SCH; +FERR325T5 PO; +FLV1 PO; +FOLI1TAB7 PO; +FRRS300 PO; +GABA-112 PO; -GABAPENTIN 300 MG CAP PO SCH; -LACTATED RINGER'S 1000ML 1,000 ML IV SCH; -LACTATED RINGER'S 1000ML 500 ML IV ONE; -LACTATED RINGER'S 1000ML IV SCH; -METOCLOPRAMIDE HCL 10 MG TAB PO SCH; +OXYC-609 PO; -OXYC1TAB3 PO; +PRD20 PO; +RXC5 PO; -SCOPOLAMINE 1.5 MG TDSY TD SCH; +SULF800T23 PO; +TAMS0.4C38 PO; +TPRSR/25 PO; -TRANEXAMIC ACID INJ 1,000 MG in SODIUM CHLORIDE 0.9% 100ML 100 ML IV SCH; +VTMB12 PO; +WARF-246 PO
[2017-06-15 10:27] LABS: INR 2.5 (0.9-1.1); PROTHROMBIN TIME (PATIENT) 27.9 SECONDS (9.0-12.0)
== END | disposition home or self-care (01) ==
LOC: C.LABSPEC 10:09
PROVIDERS: ATTEND Orthopaedic Surgery Sports Medicine
DX: I48.91 Unspecified atrial fibrillation (principal); Z79.01 Long term (current) use of anticoagulants

== ENCOUNTER → 2017-06-19 | Outpatient (CLI) | payer OTHER ==
[2017-06-19 15:38] LABS: INR 3.3 (0.9-1.1); PROTHROMBIN TIME (PATIENT) 36.8 SECONDS (9.0-12.0)
== END | disposition home or self-care (01) ==
LOC: C.LABSPEC 14:49
PROVIDERS: ATTEND Family Medicine
DX: Z79.01 Long term (current) use of anticoagulants (principal); Z86.718 Personal history of other venous thrombosis and embolism; Z86.711 Personal history of pulmonary embolism

== ENCOUNTER → 2017-06-22 | Outpatient (CLI) | payer OTHER ==
[2017-06-22 12:39] LABS: URINE APPEARANCE CLOUDY (CLEAR); URINE BILIRUBIN NEG (NEG); URINE COLOR DK YELLOW; URINE NITRITE POS (NEG); URINE SPECIFIC GRAVITY 1.021 (1.000-1.030); UROBILINOGEN NEG (NEG)
[2017-06-22 12:42] LABS: INR 2.6 (0.9-1.1); PROTHROMBIN TIME (PATIENT) 29.1 SECONDS (9.0-12.0)
[2017-06-22 12:43] LABS: MANUAL MICROSCOPIC REQUIRED? NO; REVIEW REQ? NO
[2017-06-22 12:47] LABS: BLOOD UREA NITROGEN 19 mg/dl (7-18); BUN/CREATININE RATIO 14.8 (10-20); CALCIUM 8.9 mg/dl (8.5-10.1); CARBON DIOXIDE 26 mmol/L (21-32); CHLORIDE 96 mmol/L (98-107); GLUCOSE 113 mg/dl (70-99); POTASSIUM 4.6 mmol/L (3.5-5.1); SODIUM 132 mmol/L (136-145)
[2017-06-22 13:04] LABS: HEMATOCRIT 24.7 % (42-52); MEAN CELL VOLUME 92.9 fL (80-100); MEAN CORPUSCULAR HEMOGLOBIN 30.1 pg (25-34); MEAN CORPUSCULAR HGB CONC 32.4 g/dl (32-36); MEAN PLATELET VOLUME 8.8 fL (7.4-10.4); PLATELET COUNT 563 K/uL (130-400); RED BLOOD COUNT 2.66 M/uL (4.7-6.1); WHITE BLOOD COUNT 34.56 K/uL (4.8-10.8)
[2017-06-22 13:07] LABS: BASO % 0.1 %; BASO ABS # 0.03 K/uL (0-0.2); COMPLETE YES; EOS % 0.1 %; IG% 0.7 %; LYMPH % 4.3 %; LYMPH ABS # 1.48 K/uL (1.2-3.4); MONO % 6.3 %; NEUT % 88.5 %; VACUOLIZATION 1+
== END | disposition home or self-care (01) ==
LOC: C.LABSPEC 12:17
PROVIDERS: ATTEND Orthopaedic Surgery Sports Medicine
DX: Z51.81 Encounter for therapeutic drug level monitoring (principal); Z47.1 Aftercare following joint replacement surgery; I48.91 Unspecified atrial fibrillation; I82.401 Acute embolism and thrombosis of unspecified deep veins of right lower extremity; Z79.01 Long term (current) use of anticoagulants; R50.9 Fever, unspecified; R00.0 Tachycardia, unspecified; N39.0 Urinary tract infection, site not specified

== ENCOUNTER 2017-06-23 12:43 | Inpatient (IN) | payer OTHER ==
[2017-06-23] VITALS (11 sets, daily range): BP systolic 99–147; BP diastolic 62–90; PULSE 62–99; TEMP 36.6–37.2; O2SAT 95–99; Ht 193 cm; Wt 117.0 kg
[~2017-06-23] VITALS: Ht 193 cm; Wt 117.0 kg
[~2017-06-23 12:43] MED LIST changes: -CPR500 PO; -CYAN100020 PO; -CYCL5TAB PO; -DOCU-94 PO; -FERR325T5 PO; -FLV1 PO; -FOLI1TAB7 PO; -FRRS300 PO; -OXYC-609 PO; -PRD20 PO; -SULF800T23 PO; -TAMS0.4C38 PO; -TPRSR/25 PO; -VTMB12 PO; -WARF-246 PO
[2017-06-23] MEDS ORDERED: CEFTRIAXONE SOD INJ 1 GM ADDVIAL IV STA (13:37)
[2017-06-23] MEDS ORDERED: SODIUM CHLORIDE 0.9% 1000ML 1,000 ML IV STA ×2 (13:37→15:06)
--- NOTE | 2017-06-23 14:03 | DIAGNOSTIC IMAGING REPORT ---
CHEST ONE VIEW PORTABLE CLINICAL HISTORY: 66 years-old Male presenting with Evaluate Fever/Sepsis. TECHNIQUE: Portable upright AP view of the chest was obtained. COMPARISON: 06/10/2017. FINDINGS: Prominence of the cardiomediastinal silhouette in part due to mildly low lung volumes. Left basilar opacity. No large pleural effusion or pneumothorax. Right lung clear. Osseous structures normal. Upper abdomen normal. IMPRESSION: 1. Mildly low lung volumes with hypoventilatory changes. Suspected left basilar atelectasis. No significant change since the prior exam. Electronically signed by: Khris Allison M.D. 06/23/2017 2:02 PM Dictated Date/Time: 06/23/2017 2:00 PM
[2017-06-23] MEDS ORDERED: DOCU-94 PO (14:26)
[2017-06-23] MEDS ORDERED: SULF800T23 PO (14:26)
[2017-06-23] MEDS ORDERED: CYCL5TAB PO (14:26)
[2017-06-23 14:31] LABS: HEMATOCRIT 25.8 % (42-52); MEAN CELL VOLUME 91.5 fL (80-100); MEAN CORPUSCULAR HEMOGLOBIN 30.1 pg (25-34); MEAN CORPUSCULAR HGB CONC 32.9 g/dl (32-36); PLATELET COUNT 651 K/uL (130-400); RED BLOOD COUNT 2.82 M/uL (4.7-6.1); WHITE BLOOD COUNT 40.25 K/uL (4.8-10.8)
[2017-06-23 14:32] LABS: ALT/SGPT 44 U/L (12-78); BLOOD UREA NITROGEN 23 mg/dl (7-18); BUN/CREATININE RATIO 14.5 (10-20); CALCIUM 9.4 mg/dl (8.5-10.1); CARBON DIOXIDE 21 mmol/L (21-32); CHLORIDE 93 mmol/L (98-107); GLUCOSE 155 mg/dl (70-99); POTASSIUM 4.5 mmol/L (3.5-5.1); SODIUM 128 mmol/L (136-145)
[2017-06-23 14:38] LABS: ALKALINE PHOSPHATASE 163 U/L (45-117); AST/SGOT 34 U/L (15-37); CKMB/CK RATIO 1.6 (0-3.0)
[2017-06-23 14:44] LABS: BASO % 0.1 %; BASO ABS # 0.05 K/uL (0-0.2); COMPLETE YES; DOHLE BODIES 1+; HYPERSEGMENTED POLYS 1+; IG% 1.4 %; LYMPH % 2.1 %; LYMPH ABS # 0.84 K/uL (1.2-3.4); NEUT % 90.4 %; POLYCHROMASIA 1+
[2017-06-23] MEDS: SODIUM CHLORIDE 0.9% 1000ML 1,000 ML IV SCH (15:22)
[2017-06-23] MEDS ORDERED: VANCOMYCIN INJ 1,000 MG in SODIUM CHLORIDE 0.9% 250ML 250 ML IV STA (15:22)
--- NOTE | 2017-06-23 15:25 | EMERGENCY ROOM VISIT NOTE ---
History Report prepared by Jamee: Asif Ybarra Under the Supervision of: Dr. Vinny Rivera D.O. First contact with patient: 13:23 Chief Complaint: INFECTION Stated Complaint: WEAK, PALE, EMILY 2 WKS AGO, DR ROSALES REFERRED HERE History of Present Illness The patient is a 66 year old male who presents to the Emergency Room with complaints of constant weakness starting around three days ago. The patient additionally is constipated, pale, feverish as high as 100.3, nausea, vomiting, fatigued, not eating, and he has been having burning with urination. The patient had hip surgery done two weeks ago, and he has been doing well and doing all of his exercises. Three days ago, the patient started to have left hip pain near the replacement, and laying down does not help the pain. He was not able to sleep due to the pain. Additionally, the patient has had his blood drawn and he had a decreased red cell count and an increased white cell count. The patient states that he has a history of A-fib and a PE after his last hip surgery on the other hip. The states that the patient has not been in A- fib since that last surgery a couple of years ago. The patient started taking Flexeril yesterday, and today he went to Dr. Rosales's office, and they told him to come here for evaluation. Source of History: patient Onset: three days ago Position: other (global) Quality: other (weakness) Timing: constant Associated Symptoms: + nausea, + vomiting, + urinary symptoms, + fatigue Note: Associated symptoms: constipated, pale, lack of appetite Review of Systems See HPI for pertinent positives & negatives. A total of 10 systems reviewed and were otherwise negative. Past Medical & Surgical Medical Problems: (1) Left Hip DJD (2) LLE DVT, hypoxia (3) svt Social History Smoking Status: Never Smoker Alcohol Use: none Drug Use: none Marital Status: Housing Status: lives with family Occupation Status: employed Current/Historical Medications Scheduled Allopurinol (Zyloprim), 100 MG PO QAM Colchicine (Colchicine), 0.6 MG PO QAM Cyclobenzaprine Hcl (Flexeril), 1 TAB PO TID Docusate Sodium (Colace), 100 MG PO BID Gabapentin (Neurontin), 300 MG PO HS Metoprolol Succinate (Toprol Xl), 25 MG PO BID Sulfa/Trimethoprim (Bactrim Ds 800MG/160MG), 1 TAB PO BID Warfarin Sod (Jantoven), 7.5 MG PO 5XWK Warfarin Sod (Jantoven), 10 MG PO 2XWK Scheduled PRN Oxycodone HCl (Oxycodone HCl), 10 MG PO Q6H PRN for Pain Allergies Coded Allergies: Iron (Verified Adverse Reaction, Unknown, TACHYCARDIA, 06/09/17) Physical Exam Vital Signs Date Time Temp Pulse Resp B/P (MAP) Pulse Ox O2 Delivery O2 Flow Rate FiO2 06/23/17 14:30 105 14 123/90 99 Nasal Cannula 2.0 06/23/17 14:00 110 26 120/82 95 Nasal Cannula 2.0 06/23/17 13:15 114 06/23/17 13:15 110 20 110/78 94 Nasal Cannula 2.0 06/23/17 13:00 36.5 124 20 126/75 95 Room Air Physical Exam CONSTITUTIONAL/VITAL SIGNS: Reviewed / noted above. GENERAL: Non-toxic in appearance. INTEGUMENTARY: Warm, dry, and pale. HEAD: Normocephalic. EYES: without scleral icterus or trauma. ENT/OROPHARYNX: clear and moist. LYMPHADENOPATHY/NECK: Is supple without lymphadenopathy or meningismus. RESPIRATORY: Lungs clear and equal. CARDIOVASCULAR: Tachycardic rate and irregular rhythm. GI/ABDOMEN: Soft and nontender. No organomegaly or pulsatile mass. No rebound or guarding. Normal bowel sounds. EXTREMITIES: Left hip reveals post-surgical findings without evidence of infection. BACK: No CVA tenderness. NEUROLOGICAL: Intact without focal deficits. PSYCHIATRIC: normal affect. MUSCULOSKELETAL: Normally developed with good muscle tone. Medical Decision & Procedures ER Provider Diagnostic Interpretation: Radiology results as stated below per my review and radiologist interpretation: CHEST ONE VIEW PORTABLE CLINICAL HISTORY: 66 years-old Male presenting with Evaluate Fever/Sepsis. TECHNIQUE: Portable upright AP view of the chest was obtained. COMPARISON: 06/10/2017. FINDINGS: Prominence of the cardiomediastinal silhouette in part due to mildly low lung volumes. Left basilar opacity. No large pleural effusion or pneumothorax. Right lung clear. Osseous structures normal. Upper abdomen normal. IMPRESSION: 1. Mildly low lung volumes with hypoventilatory changes. Suspected left basilar atelectasis. No significant change since the prior exam. Electronically signed by: Khris Allison M.D. 06/23/2017 2:02 PM Dictated Date/Time: 06/23/2017 2:00 PM Laboratory Results 06/23/17 13:12 Red Blood Count 2.82, Mean Corpuscular Volume 91.5, Mean Corpuscular Hemoglobin 30.1, Mean Corpuscular Hemoglobin Concent 32.9, Mean Platelet Volume 9.0, Neutrophils (%) (Auto) 90.4, Lymphocytes (%) (Auto) 2.1, Monocytes (%) (Auto) 6.0, Eosinophils (%) (Auto) 0.0, Basophils (%) (Auto) 0.1, Neutrophils # (Auto) 36.39, Lymphocytes # (Auto) 0.84, Monocytes # (Auto) 2.40, Eosinophils # (Auto) 0.02, Basophils # (Auto) 0.05 06/23/17 13:12 Test 06/23/17 13:12 06/23/17 14:11 White Blood Count 40.25 K/uL (4.8-10.8) Red Blood Count 2.82 M/uL (4.7-6.1) Hemoglobin 8.5 g/dL (14.0-18.0) Hematocrit 25.8 % (42-52) Mean Corpuscular Volume 91.5 fL (80-100) Mean Corpuscular Hemoglobin 30.1 pg (25-34) Mean Corpuscular Hemoglobin Concent 32.9 g/dl (32-36) Platelet Count 651 K/uL (130-400) Mean Platelet Volume 9.0 fL (7.4-10.4) Neutrophils (%) (Auto) 90.4 % Lymphocytes (%) (Auto) 2.1 % Monocytes (%) (Auto) 6.0 % Eosinophils (%) (Auto) 0.0 % Basophils (%) (Auto) 0.1 % Neutrophils # (Auto) 36.39 K/uL (1.4-6.5) Lymphocytes # (Auto) 0.84 K/uL (1.2-3.4) Monocytes # (Auto) 2.40 K/uL (0.11-0.59) Eosinophils # (Auto) 0.02 K/uL (0-0.5) Basophils # (Auto) 0.05 K/uL (0-0.2) RDW Standard Deviation 47.0 fL (36.4-46.3) RDW Coefficient of Variation 14.2 % (11.5-14.5) Immature Granulocyte % (Auto) 1.4 % Immature Granulocyte # (Auto) 0.55 K/uL (0.00-0.02) Nucleated RBC Absolute Count (auto) 0.06 K/uL (0-0) Nucleated Red Blood Cells % 0.1 % Hypersegmented Polys 1+ Dohle Bodies 1+ Polychromasia 1+ Erythrocyte Sedimentation Rate 38 mm/hr (0-14) Anion Gap 14.0 mmol/L (3-11) Est Creatinine Clear Calc Drug Dose 62.4 ml/min Estimated GFR () 50.9 Estimated GFR (Non- 43.9 BUN/Creatinine Ratio 14.5 (10-20) Calcium Level 9.4 mg/dl (8.5-10.1) Total Bilirubin 1.1 mg/dl (0.2-1) Direct Bilirubin 0.4 mg/dl (0-0.2) Aspartate Amino Transf (AST/SGOT) 34 U/L (15-37) Alanine Aminotransferase (ALT/SGPT) 44 U/L (12-78) Alkaline Phosphatase 163 U/L (45-117) Total Creatine Kinase 31 U/L (39-308) Creatine Kinase MB 0.5 ng/ml (0.5-3.6) Creatine Kinase MB Ratio 1.6 (0-3.0) Troponin I < 0.015 ng/ml (0-0.045) Total Protein 7.8 gm/dl (6.4-8.2) Albumin 2.7 gm/dl (3.4-5.0) Lipase 198 U/L (73-393) Lactic Acid Level 2.7 mmol/L (0.4-2.0) Laboratory results as stated above per my review. Medications Administered Medications (Trade) Dose Ordered Sig/Gege Route Start Time Stop Time Status Last Admin Dose Admin Sodium Chloride 1,000 ml @ 999 mls/hr Q1H1M STAT IV 06/23/17 13:37 06/23/17 14:37 DC 06/23/17 14:09 999 MLS/HR Ceftriaxone Sodium (Rocephin Inj) 1 gm NOW STAT IV 06/23/17 13:37 06/23/17 13:40 DC 06/23/17 14:09 1 GM ECG Indication: weakness Rate (beats per minute): 113 Rhythm: sinus tachycardia Findings: 1st degree AV block, no ectopy, other (No acute injury) ED Course 1335: Previous medical records were reviewed. The patient was evaluated in room C12. A complete history and physical examination was performed. 1337: Rocephin Inj 1gm IV, Sodium Chloride 1000 ml @ 999 mls/hr IV 1426: Discussed the patient's case with Dr. Guo. The patient will be evaluated for further treatment and disposition. Medical Decision Differential includes acute coronary syndrome, myocardial infarction, CVA, TIA, anemia, infection, pneumonia, UTI, pyelonephritis, poor nutrition, dehydration, electrolyte disturbance,hypoglycemia. This is a 66-year-old male who presents to the ED with a chief complaint of generalized weakness, fever and elevated white blood cell count. The patient developed a fever 2 days ago of 103. The patient had a total left hip arthroplasty on 06/09/17. The patient developed a fever 2 days ago and blood work and outpatient urinalysis was performed. The patient followed up with Dr. Rosales today. Dr. Rosales spoke with me and did not feel that the patient's fever or elevated white blood cell count was related to the hip. His exam of the hip did not reveal concerns for infection. The patient's white blood cell count yesterday was 34.56. Today it is 40.25. Hemoglobin yesterday was 8, today is 8.5. Patient is chronically on Coumadin for history of A. fib and PE and yesterday's INR was 2.6. The patient has not been in atrial fibrillation for at least 3 years. The patient has a relatively benign exam other than looking pale. He is also somewhat tachycardic. His EKG shows a sinus tach with a rate of 113. Hemoglobin today is 8.5. BUN is 23 and creatinine is 1.6. Sodium is 128. Guaiac testing of the stool is heme negative. The patient has been on Bactrim for the past 36 hours or so. Urine cultures pending from yesterday. The patient will be seen by the hospitalist service for further evaluation and care. He was given IV fluids as well as IV Rocephin. Medication Reconcilliation Current Medication List: was personally reviewed by me Blood Pressure Screening Patient's blood pressure: Normal blood pressure Consults Time Called: 1410 Consulting Physician: Dr. Guo Returned Call: 1426 Discussed the patient's case with Dr. Guo. The patient will be evaluated for further treatment and disposition. Impression Primary Impression: UTI (urinary tract infection) Additional Impressions: Anemia Weakness Dehydration Scribe Attestation The scribe's documentation has been prepared under my direction and personally reviewed by me in its entirety. I confirm that the note above accurately reflects all work, treatment, procedures, and medical decision making performed by me. Departure Information Dispostion Being Evaluated By Hospitalist Referrals No Doctor, Assigned (PCP) Patient Instructions My [facility] Problem Qualifiers
[2017-06-23] MEDS ORDERED: ALUMINUM/MAGNESIUM/SIMETH (MAALOX MAX) 30 ML UDC PO PRN (15:30)
[2017-06-23] MEDS ORDERED: ONDANSETRON INJ 2 MG/ML 2 ML VIAL IV PRN (15:30)
[2017-06-23] MEDS ORDERED: MAGNESIUM HYDROXIDE SUSP 30 ML UDC PO PRN (15:30)
[2017-06-23] MEDS ORDERED: POLYETHYLENE (MIRALAX) 17 GM PACK PO PRN (15:30)
[2017-06-23] MEDS ORDERED: ACETAMINOPHEN 325 MG TAB PO PRN (15:30)
[2017-06-23] MEDS ORDERED: VANCOMYCIN INJ 2,750 MG in SODIUM CHLORIDE 0.9% 500ML 500 ML IV STA (15:41)
--- NOTE | 2017-06-23 15:42 | History and Physical ---
History & Physical Date & Time of Service: Jun 23, 2017 at 15:38 Chief Complaint: Weak, Pale, Connor 2 Wks Ago, Dr Rosales Referred Here Primary Care Physician: No Doctor, Assigned History of Present Illness Source: patient, family Mr. Alfred is a 66 y/o male with PMHx of Gout, Acute and Chronic DVT with PE ( post-operatively), Paroxysmal Atrial Fibrillation, Peripheral Neuropathy, and S/ P L REYES (May 2017) who presents with multiple complaints including generalized weakness, fever, and urinary symptoms x 3 days. Patient underwent L REYES on 06/09 with EBL of 500 mL and progressing well with pain minimal. Three days ago he developed acute worsening of the L hip pain even at rest. He was prescribed Flexeril yesterday that helped with the pain and had laboratories ordered. He also complains of constipation, generalized weakness, pallor, tachycardia, fever of 100.3, decreased appetite, N/V, and burning on urination. He noted a straw colored drainage x 1 day from the surgical site but no purulent drainage. reports episode of bright red emesis but reports he had spaHe was evaluated by Dr. Rosales and had savanah removed today. Laboratories were concerning for a worsening anemia and leukocytosis. UCx positive for E. coli with pending sensitivities. In the ED, patient is afebrile with a leukocytosis of 40. Hemoglobin slightly improved to 8.5 from 8.0 the day prior. Na 128. He was Hemoccult negative. CXR unremarkable for infection. EKG with sinus tachycardia with 1st degree AV block. Patient will be admitted to telemetry for sepsis from E. coli UTI. Past Medical/Surgical History 1. Gout 2. DVT 3. PE 4. Paroxysmal Atrial Fibrillation 5. Peripheral Neuropathy 6. S/P L REYES (06/09/2017) Family History Patient reports no known family medical history. Social History Smoking Status: Never Smoker Smokeless Tobacco Use: No Alcohol Use: none Drug Use: none Marital Status: Housing status: lives with family Occupational Status: employed Immunizations History of Influenza Vaccine: N/A History of Tetanus Vaccine?: No History of Pneumococcal: No History of Hepatitis B Vaccine: Unknown Multi-Drug Resistant Organisms History of MDRO: No Allergies Coded Allergies: Iron (Verified Adverse Reaction, Unknown, TACHYCARDIA, 06/09/17) Home Medications Scheduled Allopurinol (Zyloprim), 100 MG PO QAM Colchicine (Colchicine), 0.6 MG PO QAM Cyclobenzaprine Hcl (Flexeril), 1 TAB PO TID Docusate Sodium (Colace), 100 MG PO BID Gabapentin (Neurontin), 300 MG PO HS Metoprolol Succinate (Toprol Xl), 25 MG PO BID Sulfa/Trimethoprim (Bactrim Ds 800MG/160MG), 1 TAB PO BID Warfarin Sod (Jantoven), 7.5 MG PO 5XWK Warfarin Sod (Jantoven), 10 MG PO 2XWK Scheduled PRN Oxycodone HCl (Oxycodone HCl), 10 MG PO Q6H PRN for Pain Review of Systems Constitutional: + fever, + chills, + weakness (generalized), + fatigue, + problem reported (lightheadedness/dizzy) Eyes: No worsening of vision ENT: No nasal symptoms, No sore throat Respiratory: No cough, No shortness of breath Cardiovascular: No chest pain, No palpitations Abdomen: + nausea, + vomiting, + constipation, No pain, No diarrhea, No GI bleeding Musculoskeletal: + joint pain (L hip), + swelling (L hip), No calf pain Genitourinary - Male: + dysuria, + problem reported (concentrated/dark urine; decreased urine output), No hematuria Neurologic: No numbness/tingling Hematologic / Lymphatic: + clotting problems (H/O DVTs), No abnormal bleeding/ bruising Integumentary: No rash, No new/changing skin lesions, No bleeding Physical Exam Vital Signs Date Time Temp Pulse Resp B/P (MAP) Pulse Ox O2 Delivery O2 Flow Rate FiO2 06/23/17 15:00 104 16 129/84 98 Nasal Cannula 2.0 06/23/17 14:30 105 14 123/90 99 Nasal Cannula 2.0 06/23/17 14:00 110 26 120/82 95 Nasal Cannula 2.0 06/23/17 13:15 114 06/23/17 13:15 110 20 110/78 94 Nasal Cannula 2.0 06/23/17 13:00 36.5 124 20 126/75 95 Room Air General Appearance: WD/WN, + pertinent finding (ill-appearing) Head: normocephalic, atraumatic Eyes: sclerae normal ENT: hearing grossly normal Neck: supple, no JVD, trachea midline Respiratory/Chest: lungs clear, normal breath sounds, no respiratory distress, no accessory muscle use Cardiovascular: no gallop, no murmur, + tachycardia Abdomen/GI: normal bowel sounds, non tender, soft Extremities/Musculoskelatal: no calf tenderness, no pedal edema Neurologic/Psych: alert, oriented x 3 Skin: warm/dry, + pallor Diagnostics Laboratory Results Results Past 24 Hours Test 06/23/17 13:12 06/23/17 14:11 Range/Units White Blood Count 40.25 4.8-10.8 K/uL Red Blood Count 2.82 4.7-6.1 M/uL Hemoglobin 8.5 14.0-18.0 g/dL Hematocrit 25.8 42-52 % Mean Corpuscular Volume 91.5 80-100 fL Mean Corpuscular Hemoglobin 30.1 25-34 pg Mean Corpuscular Hemoglobin Concent 32.9 32-36 g/dl Platelet Count 651 130-400 K/uL Mean Platelet Volume 9.0 7.4-10.4 fL Neutrophils (%) (Auto) 90.4 % Lymphocytes (%) (Auto) 2.1 % Monocytes (%) (Auto) 6.0 % Eosinophils (%) (Auto) 0.0 % Basophils (%) (Auto) 0.1 % Neutrophils # (Auto) 36.39 1.4-6.5 K/uL Lymphocytes # (Auto) 0.84 1.2-3.4 K/uL Monocytes # (Auto) 2.40 0.11-0.59 K/uL Eosinophils # (Auto) 0.02 0-0.5 K/uL Basophils # (Auto) 0.05 0-0.2 K/uL RDW Standard Deviation 47.0 36.4-46.3 fL RDW Coefficient of Variation 14.2 11.5-14.5 % Immature Granulocyte % (Auto) 1.4 % Immature Granulocyte # (Auto) 0.55 0.00-0.02 K/uL Nucleated RBC Absolute Count (auto) 0.06 0-0 K/uL Nucleated Red Blood Cells % 0.1 % Hypersegmented Polys 1+ Dohle Bodies 1+ Polychromasia 1+ Erythrocyte Sedimentation Rate 38 0-14 mm/hr Sodium Level 128 136-145 mmol/L Potassium Level 4.5 3.5-5.1 mmol/L Chloride Level 93 98-107 mmol/L Carbon Dioxide Level 21 21-32 mmol/L Anion Gap 14.0 3-11 mmol/L Blood Urea Nitrogen 23 7-18 mg/dl Creatinine 1.60 0.60-1.40 mg/dl Est Creatinine Clear Calc Drug Dose 62.4 ml/min Estimated GFR () 50.9 Estimated GFR (Non- 43.9 BUN/Creatinine Ratio 14.5 10-20 Random Glucose 155 70-99 mg/dl Osmolality 279 280-300 mOsm/kg Calcium Level 9.4 8.5-10.1 mg/dl Total Bilirubin 1.1 0.2-1 mg/dl Direct Bilirubin 0.4 0-0.2 mg/dl Aspartate Amino Transf (AST/SGOT) 34 15-37 U/L Alanine Aminotransferase (ALT/SGPT) 44 12-78 U/L Alkaline Phosphatase 163 45-117 U/L Total Creatine Kinase 31 39-308 U/L Creatine Kinase MB 0.5 0.5-3.6 ng/ml Creatine Kinase MB Ratio 1.6 0-3.0 Troponin I < 0.015 0-0.045 ng/ml Total Protein 7.8 6.4-8.2 gm/dl Albumin 2.7 3.4-5.0 gm/dl Lipase 198 73-393 U/L Lactic Acid Level 2.7 0.4-2.0 mmol/L Microbiology Results 06/23/17 Blood Culture, Received Pending 06/23/17 Blood Culture, Received Pending Diagnostic Radiology CHEST ONE VIEW PORTABLE FINDINGS: Prominence of the cardiomediastinal silhouette in part due to mildly low lung volumes. Left basilar opacity. No large pleural effusion or pneumothorax. Right lung clear. Osseous structures normal. Upper abdomen normal. IMPRESSION: 1. Mildly low lung volumes with hypoventilatory changes. Suspected left basilar atelectasis. No significant change since the prior exam. EKG Sinus tachycardia with 1st degree A-V block Prolonged QT Abnormal ECG When compared with ECG of 10-JUN-2017 01:38, Questionable change in QRS axis Nonspecific T wave abnormality, improved in Anterolateral leads Impression Assessment and Plan Mr. Alfred is a 66 y/o male with PMHx of Gout, Acute and Chronic DVT with PE ( post-operatively), Paroxysmal Atrial Fibrillation, Peripheral Neuropathy, and S/ P L REYES (May 2017) who presents with multiple complaints including generalized weakness, fever, and urinary symptoms x 3 days. Sepsis from E. Coli UTI: - UCx 06/22 - E. coli with sensitivities to follow - BCx pending - Zosyn and Vancomycin - coverage for healthcare-associated organisms given recent admission Acute Normocytic Anemia: - Hemoccult negative; no significant source of bleeding -- reports one episode of red emesis but reports it was after eating spaghetti - Suspect acute anemia from recent surgery with 500 cc loss and associated acute marrow suppression given illness - Trend H&H and obtain diff from CBC in ED given significant leukocytosis - No signficant cardiac history or ischemic changes on EKG - transfuse < 8 - blood consent obtained Hyponatremia: Hypovolemic - Will obtain osms but suspecte dehydration in setting of poor intake and illness - NSS at 100 mL/hr DVT: - Has had multiple provoked DVTs after surgeries and maintains on Coumadin with therapeutic INR - Coumadin 7.5 mg M,W,Th,Sat,Sun and 10 mg T,Fr Paroxysmal Atrial Fibrillation: Sinus Currently - Had previous H/O SVT and one episode of A Fib - patient reports symptoms when in this rhythm - no episodes since initial onset - Toprol XL 25 mg BID Gout: - Allopurinol 100 mg daily and Colchicine 0.6 mg daily Constipation: - Likely element of opioid induced - Colace 100 mg BID, Milk of Mag/Miralax PRN, and add Senna daily Peripheral Neuropathy: - Gabapentin 300 mg HS DVT Prophylaxis: Coumadin Code Status: FULL RESUSCITATION Disposition: - PT evaluation - given recent surgery - Await Cx sensitivities and BCx - and will de-escalate Abx - anticipate D/C 3- 4 days Attending Addendum: I have physically seen and examined this patient, have directed the physician assistants medical activities, and agree with the H&P as noted above with the following exceptions as noted. The patient is awake, alert and oriented 3, looks pale and ill, normocephalic and atraumatic, lying in bed and in no acute distress. HEENT--PERRL, EOMI, mucous membranes and oropharynx dry. Neck--supple, no JVD or bruits, thyroid normal, trachea midline, no adenopathy. Heart--normal S1 and S2, no extra beats, no murmurs, rubs or gallops. Lungs--clear bilaterally but diminished, no respiratory distress, no accessory muscle use. Abdomen--normal bowel sounds and soft, nontender and nondistended, no hernias or masses, no organomegaly. Extremities--no cyanosis, clubbing or edema. There are good distal pulses b/l. Dermatologic--normal skin turgor, normal color, warm and dry, no abnormal lymph nodes, no rash. Neurologic--cranial nerves II through XII grossly intact. Rheumatologic--left hip incision looks normal Psychiatric--normal affect. Assessment and Plan: Sepsis from Escherichia coli UTI-- Empiric vancomycin IV and Zosyn IV. Follow urine culture and sensitivity. Symptomatic anemia-- serial H/H consent signed Hyponatremia check serum osm and urine osm NSS at 100 mls/hr DVT history- continue warfarin PAF-- continue Toprol XL 25mg bid Gout-- allopurinol and colchicine GPN=-- gabapentin 300mg HS Level of Care Telemetry Advanced Directives Existing Advance Directive: No Existing Living Will: No Existing Power of Box Sealing Machine Feeder: No Resuscitation Status FULL RESUSCITATION VTE Prophylaxis VTE Risk Assessment Done? Y/N: Yes Risk Level: High Given or contraindicated: SCD's Social Service Consult None Apply
[2017-06-23] MEDS ORDERED: PIPERACILL/TAZOBAC CONSULT ACTIVE PRN (15:45)
[2017-06-23] MEDS ORDERED: VANCOMYCIN CONSULT ACTIVE PRN (15:45)
[2017-06-23 15:54] LABS: URINE APPEARANCE CLOUDY (CLEAR); URINE BILIRUBIN NEG (NEG); URINE COLOR DK YELLOW; URINE NITRITE POS (NEG); URINE SPECIFIC GRAVITY 1.026 (1.000-1.030); UROBILINOGEN NEG (NEG); ZZUR CULT IF INDIC CLEAN CATCH YES
[2017-06-23 15:56] LABS: MANUAL MICROSCOPIC REQUIRED? NO; REVIEW REQ? YES
[2017-06-23] MEDS: WARFARIN SOD 10 MG TAB PO SCH (16:00)
[2017-06-23] MEDS ORDERED: PIPERACILL/TAZOBAC IV 3.375 GM in DEXTROSE 5% 100ML IV ONE (17:15)
[2017-06-23] MEDS: OXYCODONE HCL IR 5 MG TAB (IMMEDIATE RELEASE) PO PRN (19:42)
[2017-06-23] MEDS: GABAPENTIN 300 MG CAP PO SCH (19:43)
[2017-06-23] MEDS: METOPROLOL SUCC 25MG EXT REL TAB PO SCH (19:43)
[2017-06-23] MEDS: SENNA 8.6 MG TAB PO SCH (19:43)
[2017-06-23] MEDS: DOCUSATE SODIUM 100 MG CAP PO SCH (19:44)
[2017-06-23 19:55] LABS: BUN/CREATININE RATIO 15.7 (10-20); CALCIUM 8.2 mg/dl (8.5-10.1); CREATININE 1.3 mg/dl (0.60-1.40); POTASSIUM 4.1 mmol/L (3.5-5.1)
[2017-06-23 20:22] LABS: HEMATOCRIT 20.3 % (42-52)
[2017-06-23 21:14] LABS: HEMATOCRIT 20.2 % (42-52); MEAN CORPUSCULAR HEMOGLOBIN 30.6 pg (25-34); MEAN CORPUSCULAR HGB CONC 33.7 g/dl (32-36); MEAN PLATELET VOLUME 8.1 fL (7.4-10.4); PLATELET COUNT 504 K/uL (130-400); RED BLOOD COUNT 2.22 M/uL (4.7-6.1); WHITE BLOOD COUNT 30.98 K/uL (4.8-10.8)
[2017-06-23 21:16] LABS: INR 1.6 (0.9-1.1)
[2017-06-23 21:28] LABS: BASO % 0.1 %; BASO ABS # 0.04 K/uL (0-0.2); COMPLETE YES; DOHLE BODIES 2+; EOS % 0.2 %; IG% 0.9 %; LYMPH % 6.3 %; LYMPH ABS # 1.94 K/uL (1.2-3.4); MONO % 10.5 %; POLYCHROMASIA 1+
[2017-06-23 21:35] LABS: FERRITIN 349.7 ng/ml (8.0-388.0)
[2017-06-23] MEDS: PIPERACILL/TAZOBAC IV 3.375 GM in DEXTROSE 5% 100ML 100 ML IV SCH (22:40)
[2017-06-23 22:42] LABS: VACUOLIZATION 1+
[2017-06-24] VITALS (13 sets, daily range): BP systolic 99–131; BP diastolic 62–83; PULSE 76–128; TEMP 36.3–37.4; O2SAT 95–98
[2017-06-24] MEDS: PIPERACILL/TAZOBAC IV 3.375 GM in DEXTROSE 5% 100ML 100 ML IV SCH ×3 (06:28→23:10)
[2017-06-24] MEDS ORDERED: VANCOMYCIN INJ 1,750 MG in SODIUM CHLORIDE 0.9% 500ML 500 ML IV SCH (06:30)
[2017-06-24 06:32] LABS: HEMATOCRIT 24.2 % (42-52); MEAN CELL VOLUME 89.6 fL (80-100); MEAN CORPUSCULAR HEMOGLOBIN 30.7 pg (25-34); MEAN CORPUSCULAR HGB CONC 34.3 g/dl (32-36); MEAN PLATELET VOLUME 8.5 fL (7.4-10.4); PLATELET COUNT 493 K/uL (130-400)
[2017-06-24 06:56] LABS: INR 1.9 (0.9-1.1); PROTHROMBIN TIME (PATIENT) 20.4 SECONDS (9.0-12.0)
[2017-06-24 07:21] LABS: BUN/CREATININE RATIO 14.1 (10-20); CALCIUM 8.5 mg/dl (8.5-10.1); CREATININE 1.1 mg/dl (0.60-1.40); MAGNESIUM 2.2 mg/dl (1.8-2.4); POTASSIUM 3.9 mmol/L (3.5-5.1)
[2017-06-24] MEDS: DOCUSATE SODIUM 100 MG CAP PO SCH ×2 (08:12→21:06)
[2017-06-24] MEDS: METOPROLOL SUCC 25MG EXT REL TAB PO SCH ×2 (08:13→21:00)
[2017-06-24] MEDS: ALLOPURINOL 100 MG TAB PO SCH (08:13)
[2017-06-24] MEDS: COLCHICINE 0.6 MG TAB PO SCH (08:13)
[2017-06-24] MEDS: SODIUM CHLORIDE 0.9% 1000ML 1,000 ML IV SCH ×3 (08:34→21:48)
--- NOTE | 2017-06-24 08:47 | PROGRESS NOTE ---
DATE: 06/24/2017 SUBJECTIVE: A 66-year-old gentleman, now 2 weeks out from a left uncemented total hip arthroplasty. I saw him in the office yesterday and sent him to the ER as he looked terrible medically. He is doing quite a bit better today. He got some blood, has been hydrated and put on antibiotics for a urinary tract infection. He denies much in the way of hip pain. He says he feels much better this morning. He is taking occasional oxycodone. OBJECTIVE: VITAL SIGNS: Temperature 36.8. Vital signs stable. Heart rate much improved at 88. PHYSICAL EXAMINATION: GENERAL: Reveals a pleasant middle-aged male. He is sitting up in bed and looks comfortable. Looks much better than yesterday. EXTREMITIES: Examination of the left hip reveals hip to be located. His incision is clean, dry and intact. Some mild hip swelling but nothing severe. There is no tenseness, no signs of large hematoma or fluid collection. LABORATORY DATA: Hemoglobin is 8.3. Hematocrit 24.8. White cell count improved at 21.40. Platelets also slightly improved at 493. Urine cultures are growing E. coli. ASSESSMENT: A 66-year-old gentleman 2 weeks out from a left uncemented total hip replacement, admitted with a urinary tract infection, possible sepsis/impending sepsis. He is doing much better since he has been admitted, given some blood and hydrated. White cell count is improved. He is not having a lot of hip pain. His hip incision is benign in appearance and normal and does not have a lot of thigh swelling. Clearly, he has probably lost some blood into his leg. The concern is if there is some deep infection in his hip. There are no clinical signs of this but certainly some to be concerned about if he does not improve. He does have another source of infection which is the urinary tract. He seems to be clinically improved just over the past 12 hours with medical management. PLAN: 1. DVT prophylaxis including thigh-high TEDs, SCDs, and he is on his Coumadin with a goal of keeping his INR between 2 and 3. 2. PT/OT. He can weight bear as tolerated. 3. Pain control. He is doing pretty well with current pain regimen. We are going to add just Tylenol around the clock and hopefully limit his oxycodone. 4. Urinary tract infection. He is currently on IV antibiotics. 5. Left total hip replacement. Seems to be doing pretty well. He does not seem to have a lot of pain. In a situation like this with his elevated white count, there is always a concern of infection. Clinically, there are no signs of infection. Clearly, he is going to have some degree of hematoma from his surgery. I do not think we need to aggressively treat this unless he is not improving significantly with current management. 6. Disposition. He is hoping to be discharged to home once stable. Any orthopedic questions can be directed at me at [phone]. [facility]
[2017-06-24] MEDS: ACETAMINOPHEN 500 MG TAB PO SCH ×2 (13:17→21:49)
--- NOTE | 2017-06-24 13:47 | Pharmacy Progress Note ---
Pharmacy Abx Initial Consult Date of Service Jun 24, 2017. Pharmacy Dosing Scope Date of Consult: 06/23/17 Consultation requested by: Bailey Kothari PA-C. Pharmacy is consulted to initiate Vancomycin IV dosing therapy, order appropriate labs and adjust drug dose/frequency. Subjective The patient is a 66 year old male admitted on Jun 23, 2017 at 15:28. Objective Height (Feet): 6 Height (Inches): 4.00 Weight (Kilograms): 118.000 Vital Signs (Past 12Hrs) Vital Signs Past 12 Hours Date Time Temp Pulse Resp B/P (MAP) Pulse Ox O2 Delivery O2 Flow Rate FiO2 06/24/17 12:19 37.1 107 18 122/70 (87) 97 Room Air 06/24/17 12:02 Room Air 06/24/17 08:18 37.1 104 18 126/71 (89) 97 Room Air 06/24/17 08:04 Room Air 06/24/17 04:10 Room Air 06/24/17 04:05 36.8 88 16 122/67 95 06/24/17 03:00 36.7 85 19 121/75 96 06/24/17 02:00 36.7 92 20 125/70 98 Lab Results (24Hrs) Laboratory Tests (24 Hours) Test 06/23/17 15:53 06/23/17 20:45 06/24/17 06:06 Lactic Acid Level 1.5 mmol/L (0.4-2.0) White Blood Count 30.98 K/uL (4.8-10.8) *H 21.40 K/uL (4.8-10.8) H Red Blood Count 2.22 M/uL (4.7-6.1) L Hemoglobin 6.8 g/dL (14.0-18.0) *L Hematocrit 20.2 % (42-52) *L Mean Corpuscular Volume 91.0 fL (80-100) Mean Corpuscular Hemoglobin 30.6 pg (25-34) Mean Corpuscular Hemoglobin Concent 33.7 g/dl (32-36) Platelet Count 504 K/uL (130-400) H Mean Platelet Volume 8.1 fL (7.4-10.4) Neutrophils (%) (Auto) 82.0 % Lymphocytes (%) (Auto) 6.3 % Monocytes (%) (Auto) 10.5 % Eosinophils (%) (Auto) 0.2 % Basophils (%) (Auto) 0.1 % Neutrophils # (Auto) 25.40 K/uL (1.4-6.5) H Lymphocytes # (Auto) 1.94 K/uL (1.2-3.4) Monocytes # (Auto) 3.25 K/uL (0.11-0.59) H Eosinophils # (Auto) 0.06 K/uL (0-0.5) Basophils # (Auto) 0.04 K/uL (0-0.2) Micro Results Date/Time Source Procedure Growth Status 06/23/17 14:11 Blood Blood Culture Pending Received 06/23/17 13:37 Blood Blood Culture Pending Received 06/23/17 15:30 Urine , Clean Catch Urine Culture - Preliminary Escherichia Coli Resulted Risk Factors for Resistance * Recent hospitalization post hip replacement surgery (around 2 weeks ago). Assessment & Plan Assessment 66 year old male admitted for UTI and possible Sepsis. Plan Vancomycin for treatment of possible Sepsis Vancomycin IV * Loading dose: 2750 mg (237 mg/kg) * Maintenance dose: 1750 mg IV (15 mg/kg) every 12 hours started this AM at 0630 * Estimated pharmacokinetics: Ke= 0.050/hr, t1/2 = 13.9 hrs, Vd = 0.6 L/kg * Goal trough level for Sepsis: 15 to 20 mcg/mL * Trough Vanco level ordered for 06/25 before dose at 1800. Pharmacy will continue to follow and will adjust dose/frequency as necessary. Thank you.
--- NOTE | 2017-06-24 14:26 | Family Medicine Progress Note ---
Progress Note Date of Service Jun 24, 2017. Subjective Pt evaluation today including: conversation w/ patient, physical exam, chart review, lab review, conversation w/ energy consultant, review of inpatient medication list Pain: none PO Intake: good Patient feeling much better today Still feeling tired No pain with urination No bruising, blood in stool, or vomiting of blood Constitutional: + fatigue, No fever, No chills, No sweats Respiratory: No cough, No sputum, No shortness of breath Cardiovascular: No chest pain, No edema, No palpitations Abdomen: No pain, No nausea, No vomiting, No diarrhea, No constipation Musculoskeletal: No joint pain, No muscle pain, No calf pain Male : No dysuria, No urinary frequency Heme: No abnormal bleeding/bruising, No clotting problems Medications Current Inpatient Medications Medications (Trade) Dose Ordered Sig/Gege Route Start Time Stop Time Status Last Admin Dose Admin Sodium Chloride 1,000 ml @ 100 mls/hr Q10H IV 06/23/17 15:22 07/23/17 15:21 06/24/17 12:48 100 MLS/HR Acetaminophen (Tylenol Tab) 650 mg Q4H PRN PO 06/23/17 15:30 07/23/17 15:29 Future Hold Al Hydrox/Mg Hydrox/Simethicone (Maalox Max Susp) 15 ml Q4H PRN PO 06/23/17 15:30 07/23/17 15:29 Magnesium Hydroxide (Milk Of Magnesia Susp) 30 ml Q12H PRN PO 06/23/17 15:30 07/23/17 15:29 Ondansetron HCl (Zofran Inj) 4 mg Q6H PRN IV 06/23/17 15:30 07/23/17 15:29 Polyethylene (Miralax Powder Packet) 17 gm DAILY PRN PO 06/23/17 15:30 07/23/17 15:29 Piperacillin Sod/ Tazobactam Sod 3.375 gm/Dextrose 115 ml @ 28.75 mls/ hr Q8H IV 06/23/17 23:00 07/03/17 22:59 06/24/17 06:28 28.75 MLS/HR Allopurinol (Zyloprim Tab) 100 mg QAM PO 06/24/17 09:00 07/24/17 08:59 06/24/17 08:13 100 MG Colchicine (Colchicine Tab) 0.6 mg QAM PO 06/24/17 09:00 07/24/17 08:59 06/24/17 08:13 0.6 MG Docusate Sodium (coLACE CAP) 100 mg BID PO 06/23/17 21:00 07/23/17 20:59 06/24/17 08:12 100 MG Gabapentin (Neurontin Cap) 300 mg HS PO 06/23/17 21:00 07/23/17 20:59 06/23/17 19:43 300 MG Metoprolol Succinate (Toprol Xl Tab) 25 mg BID PO 06/23/17 21:00 07/23/17 20:59 06/24/17 08:13 25 MG Oxycodone HCl (Roxicodone Immediate Rel Tab) 10 mg Q6H PRN PO 06/23/17 15:30 07/07/17 15:29 06/23/17 19:42 10 MG Miscellaneous Information (Order Awaiting Action) 1 ea QS N/A 06/24/17 00:00 07/24/17 00:00 Piperacillin Sod/ Tazobactam Sod (Consult) 1 ea UD PRN N/A 06/23/17 15:45 07/23/17 15:44 Vancomycin HCl (Consult) 1 ea UD PRN N/A 06/23/17 15:45 07/23/17 15:44 Warfarin Sodium (Coumadin Tab) 7.5 mg SuMoWeThSa@1600 PO 06/24/17 16:00 07/24/17 15:59 Warfarin Sodium (Coumadin Tab) 10 mg TuFr@1600 PO 06/23/17 16:00 07/23/17 15:59 06/23/17 16:00 10 MG Senna (Senokot Tab) 17.2 mg HS PO 06/23/17 21:00 07/23/17 20:59 06/23/17 19:43 17.2 MG Acetaminophen (Tylenol Tab) 1,000 mg Q8 PO 06/24/17 14:00 07/24/17 13:59 06/24/17 13:17 1,000 MG Vancomycin HCl 1750 mg/Sodium Chloride 535 ml @ 200 mls/hr Q12H IV 06/24/17 18:00 07/04/17 17:59 Objective Vital Signs Date Time Temp Pulse Resp B/P (MAP) Pulse Ox O2 Delivery O2 Flow Rate FiO2 06/24/17 12:19 37.1 107 18 122/70 (87) 97 Room Air 06/24/17 12:02 Room Air 06/24/17 08:18 37.1 104 18 126/71 (89) 97 Room Air 06/24/17 08:04 Room Air 06/24/17 04:10 Room Air 06/24/17 04:05 36.8 88 16 122/67 95 06/24/17 03:00 36.7 85 19 121/75 96 06/24/17 02:00 36.7 92 20 125/70 98 06/24/17 01:32 36.5 76 18 111/68 96 06/24/17 01:13 36.3 85 20 125/71 96 06/24/17 01:08 36.9 84 20 122/73 96 06/24/17 00:39 36.5 80 14 103/67 95 06/24/17 00:00 Room Air 06/23/17 23:50 36.7 75 16 108/70 98 06/23/17 22:45 36.8 85 16 115/62 95 06/23/17 22:15 36.6 86 16 99/65 97 06/23/17 22:00 36.7 89 16 100/62 95 06/23/17 21:55 36.8 87 16 101/63 96 06/23/17 21:50 36.8 94 16 102/64 95 06/23/17 21:42 36.8 90 16 103/67 98 06/23/17 20:00 Room Air 06/23/17 19:25 97 18 122/77 (92) 97 Room Air 06/23/17 17:12 37.2 99 20 147/90 (109) 99 Nasal Cannula 2.0 06/23/17 16:54 97 Room Air 06/23/17 16:30 80 20 134/73 99 06/23/17 16:30 84 19 134/73 99 Nasal Cannula 2.0 06/23/17 16:00 79 19 118/78 100 Nasal Cannula 2.0 06/23/17 15:30 97 20 135/85 97 Nasal Cannula 2.0 06/23/17 15:00 104 16 129/84 98 Nasal Cannula 2.0 06/23/17 14:30 105 14 123/90 99 Nasal Cannula 2.0 Physical Exam General Appearance: WD/WN, no apparent distress Respiratory/Chest: no respiratory distress, no accessory muscle use, + decreased breath sounds (at the bases) Cardiovascular: regular rate, rhythm, no edema, no murmur Abdomen: normal bowel sounds, non tender, soft Extremities: non-tender, no calf tenderness, normal capillary refill, + pertinent finding (well healing left hip scar from prior hip surgery, no erythema, discharge or pain to palpation) Neurologic/Psychiatric: alert, normal mood/affect, oriented x 3 Skin: warm/dry, no rash, + pallor Laboratory Results Results Past 24 Hours Test 06/23/17 15:30 06/23/17 15:53 06/23/17 18:30 06/23/17 18:55 Range/Units Urine Color DK YELLOW Urine Appearance CLOUDY CLEAR Urine pH 5.0 4.5-7.5 Urine Specific [place] 1.026 1.000-1.030 Urine Protein 1+ NEG Urine Glucose (UA) NEG NEG Urine Ketones NEG NEG Urine Occult Blood 2+ NEG Urine Nitrite POS NEG Urine Bilirubin NEG NEG Urine Urobilinogen NEG NEG Urine Leukocyte Esterase MODERATE NEG Urine WBC (Auto) >30 0-5 /hpf Urine RBC (Auto) 0-4 0-4 /hpf Urine Hyaline Casts (Auto) 10-30 0-5 /lpf Urine Epithelial Cells (Auto) 5-10 0-5 /lpf Urine Bacteria (Auto) NEG NEG Urine Yeast (Auto) NONE PRSENT Lactic Acid Level 1.5 0.4-2.0 mmol/L Urine Osmolality 562 500-800 mOms/kg Hemoglobin 6.9 14.0-18.0 g/dL Hematocrit 20.3 42-52 % Sodium Level 131 136-145 mmol/L Potassium Level 4.1 3.5-5.1 mmol/L Chloride Level 98 98-107 mmol/L Carbon Dioxide Level 24 21-32 mmol/L Anion Gap 9.0 3-11 mmol/L Blood Urea Nitrogen 20 7-18 mg/dl Creatinine 1.30 0.60-1.40 mg/dl Est Creatinine Clear Calc Drug Dose 76.8 ml/min Estimated GFR () 65.4 Estimated GFR (Non- 56.5 BUN/Creatinine Ratio 15.7 10-20 Random Glucose 177 70-99 mg/dl Calcium Level 8.2 8.5-10.1 mg/dl Test 06/23/17 20:45 06/24/17 06:06 Range/Units White Blood Count 30.98 21.40 4.8-10.8 K/uL Red Blood Count 2.22 2.70 4.7-6.1 M/uL Hemoglobin 6.8 8.3 14.0-18.0 g/dL Hematocrit 20.2 24.2 42-52 % Mean Corpuscular Volume 91.0 89.6 80-100 fL Mean Corpuscular Hemoglobin 30.6 30.7 25-34 pg Mean Corpuscular Hemoglobin Concent 33.7 34.3 32-36 g/dl Platelet Count 504 493 130-400 K/uL Mean Platelet Volume 8.1 8.5 7.4-10.4 fL Neutrophils (%) (Auto) 82.0 % Lymphocytes (%) (Auto) 6.3 % Monocytes (%) (Auto) 10.5 % Eosinophils (%) (Auto) 0.2 % Basophils (%) (Auto) 0.1 % Neutrophils # (Auto) 25.40 1.4-6.5 K/uL Lymphocytes # (Auto) 1.94 1.2-3.4 K/uL Monocytes # (Auto) 3.25 0.11-0.59 K/uL Eosinophils # (Auto) 0.06 0-0.5 K/uL Basophils # (Auto) 0.04 0-0.2 K/uL RDW Standard Deviation 45.7 46.5 36.4-46.3 fL RDW Coefficient of Variation 13.9 14.2 11.5-14.5 % Immature Granulocyte % (Auto) 0.9 % Immature Granulocyte # (Auto) 0.29 0.00-0.02 K/uL Toxic Vacuolation 1+ Dohle Bodies 2+ Polychromasia 1+ Basophilic Stippling 1+ Prothrombin Time 18.0 20.4 9.0-12.0 SECONDS Prothromb Time International Ratio 1.6 1.9 0.9-1.1 Iron Level 10 35-175 mcg/dl Total Iron Binding Capacity 143 250-450 mcg/dl Ferritin 349.7 8.0-388.0 ng/ml Sodium Level 133 136-145 mmol/L Potassium Level 3.9 3.5-5.1 mmol/L Chloride Level 98 98-107 mmol/L Carbon Dioxide Level 26 21-32 mmol/L Anion Gap 9.0 3-11 mmol/L Blood Urea Nitrogen 16 7-18 mg/dl Creatinine 1.10 0.60-1.40 mg/dl Est Creatinine Clear Calc Drug Dose 91.5 ml/min Estimated GFR () 80.1 Estimated GFR (Non- 69.1 BUN/Creatinine Ratio 14.1 10-20 Random Glucose 98 70-99 mg/dl Calcium Level 8.5 8.5-10.1 mg/dl Magnesium Level 2.2 1.8-2.4 mg/dl Microbiology Results 06/23/17 Urine Culture - Preliminary, Resulted Escherichia Coli Assessment and Plan Mr. Alfred is a 66 y/o male with PMHx of Gout, Acute and Chronic DVT with PE ( post-operatively), Paroxysmal Atrial Fibrillation, Peripheral Neuropathy, and S/ P L REYES (May 2017) who presents with multiple complaints including generalized weakness, fever, and urinary symptoms x 3 days. Sepsis from E. Coli UTI: - UCx 06/22 - E. coli with sensitivities to follow - BCx pending - Zosyn and Vancomycin - coverage for healthcare-associated organisms given recent admission Acute Normocytic Anemia: - Source includes possibility of previous hip surgery vs colon source, will order FOBT - CBC went down to 6.9 overnight and received 2 units of PRBC, hgb stable at 8.3 , no evidence of bleeding - continue to monitor for now Fatigue - likely to be due to anemia - will check ysh, b12, folate and fobt Hyponatremia: Hypovolemic - Sodium 133 this morning, will continue to monitor - Good PO intake DVT: - Has had multiple provoked DVTs after surgeries and maintains on Coumadin with therapeutic INR - Coumadin 7.5 mg M,W,Th,Sat,Sun and 10 mg T,Fr Paroxysmal Atrial Fibrillation: - Toprol XL 25 mg BID Gout: - Allopurinol 100 mg daily and Colchicine 0.6 mg daily Constipation: - Likely element of opioid induced - Colace 100 mg BID, Milk of Mag/Miralax PRN, and add Senna daily Peripheral Neuropathy: - Gabapentin 300 mg tid per patient DVT Prophylaxis: Coumadin Code Status: FULL RESUSCITATION Disposition: - PT evaluation - given recent surgery - OT Continued [facility] stay due to: multiple IV medications needed
[2017-06-24] MEDS: WARFARIN SOD 7.5 MG TAB PO SCH (15:22)
[2017-06-24] MEDS: VANCOMYCIN INJ 1,750 MG in SODIUM CHLORIDE 0.9% 500ML 500 ML IV SCH (17:58)
[2017-06-24] MEDS ORDERED: NURSING VERBAL MED ORDER ONE (18:15)
[2017-06-24] MEDS: ALPRAZOLAM 0.5 MG TAB PO PRN (18:17)
[2017-06-24] MEDS ORDERED: ACETAMINOPHEN IV 1000MG/100ML IV SCH (18:30)
[2017-06-24 19:19] LABS: HEMATOCRIT 23.8 % (42-52)
[2017-06-24] MEDS: GABAPENTIN 300 MG CAP PO SCH (21:06)
[2017-06-24] MEDS: SENNA 8.6 MG TAB PO SCH (21:06)
[2017-06-24] MEDS: OXYCODONE HCL IR 5 MG TAB (IMMEDIATE RELEASE) PO PRN (22:50)
[2017-06-24 23:11] LABS: HEMATOCRIT 24.5 % (42-52)
[2017-06-25 03:29] VITALS: BP 136/80; PULSE 104; TEMP 37; O2SAT 95
[2017-06-25] MEDS: VANCOMYCIN INJ 1,750 MG in SODIUM CHLORIDE 0.9% 500ML 500 ML IV SCH (05:57)
[2017-06-25] MEDS: ACETAMINOPHEN 500 MG TAB PO SCH ×3 (06:00→21:14)
[2017-06-25 06:38] LABS: INR 2.2 (0.9-1.1); PROTHROMBIN TIME (PATIENT) 24.6 SECONDS (9.0-12.0)
[2017-06-25 06:52] LABS: HEMATOCRIT 24.2 % (42-52); MEAN CORPUSCULAR HEMOGLOBIN 30.8 pg (25-34); MEAN CORPUSCULAR HGB CONC 33.9 g/dl (32-36); MEAN PLATELET VOLUME 8.2 fL (7.4-10.4); PLATELET COUNT 496 K/uL (130-400); RED BLOOD COUNT 2.66 M/uL (4.7-6.1); WHITE BLOOD COUNT 7.95 K/uL (4.8-10.8)
[2017-06-25 07:07] LABS: BUN/CREATININE RATIO 7.3 (10-20); CALCIUM 8.5 mg/dl (8.5-10.1); CREATININE 1.2 mg/dl (0.60-1.40); MAGNESIUM 2.1 mg/dl (1.8-2.4); POTASSIUM 3.9 mmol/L (3.5-5.1)
[2017-06-25 07:13] LABS: THYROID STIMULATING HORMONE 0.343 uIu/ml (0.300-4.500)
[2017-06-25] MEDS: DOCUSATE SODIUM 100 MG CAP PO SCH ×2 (07:24→21:13)
[2017-06-25] MEDS: METOPROLOL SUCC 25MG EXT REL TAB PO SCH (07:24)
[2017-06-25] MEDS: PIPERACILL/TAZOBAC IV 3.375 GM in DEXTROSE 5% 100ML 100 ML IV SCH (07:24)
[2017-06-25] MEDS: COLCHICINE 0.6 MG TAB PO SCH (07:25)
[2017-06-25] MEDS: ALLOPURINOL 100 MG TAB PO SCH (07:25)
[2017-06-25] MEDS: SODIUM CHLORIDE 0.9% 1000ML 1,000 ML IV SCH (07:25)
[2017-06-25] MEDS ORDERED: METOPROLOL SUCC 25MG EXT REL TAB PO ONE (07:45)
[2017-06-25 08:01] VITALS: BP 121/74; PULSE 84; TEMP 37.2; O2SAT 95
--- NOTE | 2017-06-25 11:27 | PROGRESS NOTE ---
DATE: 06/25/2017 SUBJECTIVE: A 66-year-old gentleman, 2 weeks out from left total hip replacement, readmitted with fatigue, urinary tract infection and significant anemia. He is doing much better this morning. He denies any significant hip pain. No more pain with urination. He denies any chest pain or shortness of breath. He still feels kind of run down. OBJECTIVE: VITAL SIGNS: Temperature 37.0. Vital signs are stable. HEART: Intermittent tachycardia. EXTREMITIES: Examination of the left hip and leg reveals the patient is lying in bed. Leg lengths are equal. His incision is clean, dry and intact. The thigh is pretty soft and supple, some mild swelling, but no significant tenseness or signs of significant hematoma. He is neurologically intact. LABORATORIES: Hemoglobin is stable at 8.2. White cell count in now normal at 7.95, but platelets are still elevated. Lactic acid has improved. INR is 2.2. Electrolytes are stable. ASSESSMENT: A 66-year-old gentleman, 2 weeks out from a left total hip replacement, readmitted with fatigue, urinary tract infection and significant symptomatic anemia. He is much better now that he has had a transfusion. His white cell count is back down to normal. His hip incision is benign and does not have any significant hip pain. There are no signs of active bleeding and his hemoglobin and hematocrit are stable. His INR is therapeutic. PLAN: I do think we can stop checking his H&Hs so regularly, and maybe just check this once a day at most at this point and continue the therapy. He can weight bear as tolerated with total hip precautions. DVT prophylaxis including thigh high TEDs, SCDs and Coumadin, he is in the therapeutic range. Continue antibiotics for the urinary tract infections. Orthopedic; he looks pretty stable. With his medical situations under control I think he can be discharged to home once medically stable. Any orthopedic questions can be directed to me at [phone]. We will continue to follow him during his hospitalization daily. If any questions, contact me please. WALESKA
[2017-06-25 12:26] VITALS: BP 122/72; PULSE 98; TEMP 37; O2SAT 97
[2017-06-25 14:19] LABS: HEMATOCRIT 26.1 % (42-52)
--- NOTE | 2017-06-25 14:50 | Family Medicine Progress Note ---
Progress Note Date of Service Jun 25, 2017. Subjective Pt evaluation today including: conversation w/ patient, physical exam Pain: none PO Intake: good Voiding: no voiding problems Patient feeling much better today and feels more clear headed He had no burning with urination, no fevers or chills He has not had any bleeding He did mention today that he has been having his urinary stream slow down Constitutional: No fever, No chills, No sweats Respiratory: No cough, No sputum, No shortness of breath Cardiovascular: No chest pain, No edema, No palpitations Abdomen: No pain, No nausea, No vomiting, No diarrhea Male : + slowing stream, No dysuria, No urinary frequency Heme: No abnormal bleeding/bruising, No clotting problems Medications Current Inpatient Medications Medications (Trade) Dose Ordered Sig/Gege Route Start Time Stop Time Status Last Admin Dose Admin Acetaminophen (Tylenol Tab) 650 mg Q4H PRN PO 06/23/17 15:30 07/23/17 15:29 Future Hold Al Hydrox/Mg Hydrox/Simethicone (Maalox Max Susp) 15 ml Q4H PRN PO 06/23/17 15:30 07/23/17 15:29 Magnesium Hydroxide (Milk Of Magnesia Susp) 30 ml Q12H PRN PO 06/23/17 15:30 07/23/17 15:29 Ondansetron HCl (Zofran Inj) 4 mg Q6H PRN IV 06/23/17 15:30 07/23/17 15:29 06/24/17 22:50 4 MG Polyethylene (Miralax Powder Packet) 17 gm DAILY PRN PO 06/23/17 15:30 07/23/17 15:29 Allopurinol (Zyloprim Tab) 100 mg QAM PO 06/24/17 09:00 07/24/17 08:59 06/25/17 07:25 100 MG Colchicine (Colchicine Tab) 0.6 mg QAM PO 06/24/17 09:00 07/24/17 08:59 06/25/17 07:25 0.6 MG Docusate Sodium (coLACE CAP) 100 mg BID PO 06/23/17 21:00 07/23/17 20:59 06/25/17 07:24 100 MG Gabapentin (Neurontin Cap) 300 mg HS PO 06/23/17 21:00 07/23/17 20:59 06/24/17 21:06 300 MG Oxycodone HCl (Roxicodone Immediate Rel Tab) 10 mg Q6H PRN PO 06/23/17 15:30 07/07/17 15:29 06/24/17 22:50 10 MG Miscellaneous Information (Order Awaiting Action) 1 ea QS N/A 06/24/17 00:00 07/24/17 00:00 Warfarin Sodium (Coumadin Tab) 7.5 mg SuMoWeThSa@1600 PO 06/24/17 16:00 07/24/17 15:59 06/24/17 15:22 7.5 MG Warfarin Sodium (Coumadin Tab) 10 mg TuFr@1600 PO 06/23/17 16:00 07/23/17 15:59 06/23/17 16:00 10 MG Senna (Senokot Tab) 17.2 mg HS PO 06/23/17 21:00 07/23/17 20:59 06/24/17 21:06 17.2 MG Acetaminophen (Tylenol Tab) 1,000 mg Q8 PO 06/24/17 14:00 07/24/17 13:59 06/25/17 14:15 1,000 MG Alprazolam (Xanax Tab) 0.5 mg Q6H PRN PO 06/24/17 18:15 07/24/17 18:14 06/24/17 18:17 0.5 MG Metoprolol Succinate (Toprol Xl Tab) 50 mg BID PO 06/25/17 21:00 07/23/17 20:59 Ciprofloxacin (Cipro Tab) 500 mg BID PO 06/25/17 21:00 07/05/17 20:59 Objective Vital Signs Date Time Temp Pulse Resp B/P (MAP) Pulse Ox O2 Delivery O2 Flow Rate FiO2 06/25/17 12:26 37.0 98 16 122/72 (89) 97 Room Air 06/25/17 12:00 Room Air 06/25/17 08:01 37.2 84 16 121/74 (90) 95 Room Air 06/25/17 08:00 Room Air 06/25/17 04:24 Room Air 06/25/17 03:29 37.0 104 18 136/80 (98) 95 Room Air 06/25/17 00:06 Room Air 06/24/17 23:04 36.7 92 18 131/83 (99) 98 Room Air 06/24/17 20:12 Room Air 06/24/17 19:47 36.9 100 18 99/62 (74) 95 Room Air 06/24/17 18:28 37.4 128 06/24/17 16:02 Room Air 06/24/17 15:49 37.0 105 21 124/68 (86) 96 Room Air Physical Exam Notes: General Appearance: WD/WN, no apparent distress Respiratory/Chest: no respiratory distress, no accessory muscle use, + decreased breath sounds (at the bases) Cardiovascular: regular rate, rhythm, no edema, no murmur Abdomen: normal bowel sounds, non tender, soft Extremities: non-tender, no calf tenderness, normal capillary refill, + pertinent finding (well healing left hip scar from prior hip surgery, no erythema, discharge or pain to palpation) Neurologic/Psychiatric: alert, normal mood/affect, oriented x 3 Skin: warm/dry, no rash, + pallor Laboratory Results Results Past 24 Hours Test 06/24/17 19:03 06/24/17 22:04 06/25/17 06:04 06/25/17 11:15 Range/Units Hemoglobin 8.0 8.1 8.2 14.0-18.0 g/dL Hematocrit 23.8 24.5 24.2 42-52 % White Blood Count 7.95 4.8-10.8 K/uL Red Blood Count 2.66 4.7-6.1 M/uL Mean Corpuscular Volume 91.0 80-100 fL Mean Corpuscular Hemoglobin 30.8 25-34 pg Mean Corpuscular Hemoglobin Concent 33.9 32-36 g/dl RDW Standard Deviation 47.6 36.4-46.3 fL RDW Coefficient of Variation 14.5 11.5-14.5 % Platelet Count 496 130-400 K/uL Mean Platelet Volume 8.2 7.4-10.4 fL Nucleated RBC Absolute Count (auto) 0.03 0-0 K/uL Nucleated Red Blood Cells % 0.3 % Prothrombin Time 24.6 9.0-12.0 SECONDS Prothromb Time International Ratio 2.2 0.9-1.1 Sodium Level 135 136-145 mmol/L Potassium Level 3.9 3.5-5.1 mmol/L Chloride Level 102 98-107 mmol/L Carbon Dioxide Level 26 21-32 mmol/L Anion Gap 7.0 3-11 mmol/L Blood Urea Nitrogen 9 7-18 mg/dl Creatinine 1.20 0.60-1.40 mg/dl Est Creatinine Clear Calc Drug Dose 85.7 ml/min Estimated GFR () 72.1 Estimated GFR (Non- 62.2 BUN/Creatinine Ratio 7.3 10-20 Random Glucose 97 70-99 mg/dl Calcium Level 8.5 8.5-10.1 mg/dl Magnesium Level 2.1 1.8-2.4 mg/dl Vitamin B12 Level 209 211-911 pg/mL Folate 3.12 >5.38 ng/mL Thyroid Stimulating Hormone (TSH) 0.343 0.300-4.500 uIu/ml Stool Occult Blood NEGATIVE NEGATIVE Test 06/25/17 13:55 Range/Units Hemoglobin 8.4 14.0-18.0 g/dL Hematocrit 26.1 42-52 % Assessment and Plan Mr. Alfred is a 66 y/o male with PMHx of Gout, Acute and Chronic DVT with PE ( post-operatively), Paroxysmal Atrial Fibrillation, Peripheral Neuropathy, and S/ P L REYES (May 2017) who presents with multiple complaints including generalized weakness, fever, and urinary symptoms x 3 days. Sepsis from E. Coli UTI: - UCx 06/22 - E. coli with sensitivity to ciprofloxacin, will switch to cipro - BCx with no growth to date - Zosyn and Vancomycin stopped and switch to cipro Acute Normocytic Anemia: - Source includes possibility of previous hip surgery vs colon source, - did rectal exam today and stool sent to lab for haemoccult - CBC was 6.9 and received 2 units on June 24 overnight. Hgb stable at 8.2 - iron low, b12 low and folate low - will supplement PO B12 2 weeks -->4 months, folate 3 weeks or until resolved and ferrous sulfate for at least 3 months (however patient has allergy to iron therefore may need another way to receive iron) Fatigue - likely to be due to anemia - tsh wnl - b12, folate and iron all low Hyponatremia: Hypovolemic (resolved - Sodium 135 this morning, will continue to monitor - Good PO intake DVT: - Has had multiple provoked DVTs after surgeries and maintains on Coumadin with therapeutic INR - Coumadin 7.5 mg M,W,Th,Sat,Sun and 10 mg T,Fr Paroxysmal Atrial Fibrillation: - Toprol XL increased to 50 bid as heart rate in low 100's, was on 25 bid at home Gout: - Allopurinol 100 mg daily and Colchicine 0.6 mg daily Constipation: - Likely element of opioid induced - Colace 100 mg BID, Milk of Mag/Miralax PRN, and add Senna daily Peripheral Neuropathy: - Gabapentin 300 mg tid per patient DVT Prophylaxis: Coumadin Code Status: FULL RESUSCITATION Disposition: - PT evaluation - given recent surgery - OT Continued [facility] stay due to: home environment unsafe for pt Discharge planning: uncertain
[2017-06-25] MEDS: WARFARIN SOD 7.5 MG TAB PO SCH (15:55)
[2017-06-25 16:13] VITALS: BP 125/71; PULSE 90; TEMP 36.6; O2SAT 96
[2017-06-25] MEDS ORDERED: VANCOMYCIN TROUGH SCH (17:30)
[2017-06-25 19:14] VITALS: BP 113/71; PULSE 81; TEMP 36.8; O2SAT 96
[2017-06-25] MEDS: ALPRAZOLAM 0.5 MG TAB PO PRN (21:10)
[2017-06-25] MEDS: OXYCODONE HCL IR 5 MG TAB (IMMEDIATE RELEASE) PO PRN (21:11)
[2017-06-25] MEDS: CIPROFLOXACIN 500 MG TAB PO SCH (21:11)
[2017-06-25] MEDS: GABAPENTIN 300 MG CAP PO SCH (21:12)
[2017-06-25] MEDS: METOPROLOL SUCC 50MG EXT REL TAB PO SCH (21:12)
[2017-06-25] MEDS: SENNA 8.6 MG TAB PO SCH (21:13)
[2017-06-25 22:59] LABS: HEMATOCRIT 25.2 % (42-52)
[2017-06-25 23:26] VITALS: BP 104/64; PULSE 86; TEMP 36.3; O2SAT 96
[2017-06-26] VITALS (9 sets, daily range): BP systolic 108–150; BP diastolic 69–83; PULSE 59–126; TEMP 36.3–37; O2SAT 95–99
[2017-06-26] MEDS: ACETAMINOPHEN 500 MG TAB PO SCH ×3 (06:00→20:57)
[2017-06-26 06:49] LABS: HEMATOCRIT 27.2 % (42-52); MEAN CELL VOLUME 91.9 fL (80-100); MEAN CORPUSCULAR HEMOGLOBIN 30.1 pg (25-34); MEAN CORPUSCULAR HGB CONC 32.7 g/dl (32-36); MEAN PLATELET VOLUME 8.5 fL (7.4-10.4); PLATELET COUNT 510 K/uL (130-400); RED BLOOD COUNT 2.96 M/uL (4.7-6.1); WHITE BLOOD COUNT 7.06 K/uL (4.8-10.8)
[2017-06-26 07:04] LABS: PROTHROMBIN TIME (PATIENT) 22.5 SECONDS (9.0-12.0)
[2017-06-26 07:18] LABS: BUN/CREATININE RATIO 9.5 (10-20); CALCIUM 8.5 mg/dl (8.5-10.1); MAGNESIUM 2.2 mg/dl (1.8-2.4); POTASSIUM 3.6 mmol/L (3.5-5.1)
[2017-06-26] MEDS: COLCHICINE 0.6 MG TAB PO SCH (07:49)
[2017-06-26] MEDS: ALLOPURINOL 100 MG TAB PO SCH (07:50)
[2017-06-26] MEDS: CYANOCOBALAMIN 500 MCG TAB (VIT B-12) PO SCH (07:50)
[2017-06-26] MEDS: FERROUS SULFATE 325 MG TAB PO SCH ×2 (07:51→15:46)
[2017-06-26] MEDS: DOCUSATE SODIUM 100 MG CAP PO SCH ×2 (07:51→20:55)
[2017-06-26] MEDS: METOPROLOL SUCC 50MG EXT REL TAB PO SCH ×2 (07:52→20:56)
[2017-06-26] MEDS: CIPROFLOXACIN 500 MG TAB PO SCH ×2 (07:52→20:56)
--- NOTE | 2017-06-26 08:08 | PROGRESS NOTE ---
DATE: 06/26/2017 SUBJECTIVE: A 66-year-old gentleman, a little over 2 weeks out from a left total hip replacement, admitted with urinary tract infection, anemia and extreme fatigue. He is doing much better. He still feels ____ but in general much improved. He denies any chest pain or shortness of breath. He is not feeling dizzy or lightheaded. OBJECTIVE: VITAL SIGNS: Temperature is 36.5. Vital signs are stable. Pulse now at 88. GENERAL: This is a pleasant, middle aged male. He is lying in bed and looks pretty comfortable. EXTREMITIES: Examination of left hip and leg reveals leg lengths to be equal. His incision is clean, dry and intact. Thigh is soft and supple. No real pain with hip motion. LABORATORIES: White cell count is 7.06. Hemoglobin is 8.9 and hematocrit 27.2. INR is 2.0. Electrolytes are stable. ASSESSMENT: A 66-year-old gentleman, a little over 2 weeks out from a left total hip replacement re-admitted with urinary tract infection, fatigue and severe anemia. He is doing much better. White cell count is back to normal. Pain is controlled. His hip is located. He is neurologically intact. There are no signs of hip infection. He is now on Cipro; the concern with this is it may affect his INR and I think it does have some interaction with Coumadin. PLAN: 1. DVT prophylaxis including thigh-high TEDs, SCDs and Coumadin. 2. PT/OT. Weight-bear as tolerated. Left total hip protocol. 3. Pain control. We will try and limit his pain medications. Really he should be off most all narcotics at this time. 4. Medical management as per the medicine service. We will leave antibiotic choice up to the medicine service for his UTI. I do believe that Cipro may have some interaction with Coumadin. 5. Disposition: He is orthopedically stable and acceptable for discharge anytime. I just need to see him back in my clinic in 3-4 weeks. Any orthopedic questions can be directed to me at [phone].
--- NOTE | 2017-06-26 09:28 | Clinical Documentation Query ---
CLINICAL DOCUMENTATION QUERY A 66-year-old male who presents to the ED with a chief complaint of generalized weakness, fever and elevated white blood cell count. In your clinical opinion is this patient being managed for: (x ) Acute kidney failure, resolved ( ) Not Agree ( ) Other explanation of clinical findings (Please Explain) ( ) Unable to determine (Please Define) ( ) Need to Discuss The medical record reflects the following clinical findings, treatment, and risk factors. Clinical Indicators: Serum creatinine 1.30 mg/dl increasing 0.3 mg/dl within 24 hours to 1.60 mg/dl, hyponatremia, hypovolemia Treatment: IV hydration Risk Factors: S/P surgical intervention, sepsis, UTI Please clarify and document your clinical opinion in the progress notes and discharge summary. Terms such as "probable", "suspected", "likely", "questionable", "possible", or "still to be ruled out" are acceptable. IF IN AGREEMENT, YOU MUST DOCUMENT ABOVE DIAGNOSTIC STATEMENT IN DAILY PROGRESS NOTES AND DISCHARGE SUMMARY. This document is not part of the patient's record. Thank You, Natalia Mclean RN [phone]
--- NOTE | 2017-06-26 13:47 | Clinical Documentation Query ---
CLINICAL DOCUMENTATION QUERY A 66-year-old male who presents to the ED with a chief complaint of generalized weakness, fever and elevated white blood cell count. In your clinical opinion is this patient being managed for: (x ) Acute kidney failure, resolved ( ) Not Agree ( ) Other explanation of clinical findings (Please Explain) ( ) Unable to determine (Please Define) ( ) Need to Discuss The medical record reflects the following clinical findings, treatment, and risk factors. Clinical Indicators: Serum creatine 1.30 mg/dl increasing 0.3 mg/dl within 24 hours to 1.60 mg/dl, hyponatremia, hypovolemia Treatment:IV hydration Risk Factors: S/P surgical intervention, sepsis, UTI Please clarify and document your clinical opinion in the progress notes and discharge summary. Terms such as "probable", "suspected", "likely", "questionable", "possible", or "still to be ruled out" are acceptable. IF IN AGREEMENT, YOU MUST DOCUMENT ABOVE DIAGNOSTIC STATEMENT IN DAILY PROGRESS NOTES AND DISCHARGE SUMMARY. This document is not part of the patient's record. Thank You, Natalia Mclean RN [phone]
--- NOTE | 2017-06-26 14:35 | Family Medicine Progress Note ---
Progress Note Date of Service Jun 26, 2017. Subjective Pt evaluation today including: conversation w/ patient, physical exam, chart review, lab review The patient was seen and examined at bedside. No acute overnight events. Telemetry monitoring showed sinus rhythm in the 90s. When the patient was ambulating his heart rate went up to 170bpm. He was asymptomatic during this period. He had one episode of A. Fib 5 years ago. 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 He takes 25mg at Metoprolol 25mg BID. According to the notes he was one Coumadin for DVTs in the past - will clarify why he was on Coumadin. Pt has never had gastric surgery, nor has he been taking a PPI intermediate frame tender. Patient is resting comfortably in bed. Denies having any pain. Eating and urinating well. Says his hip is getting better. Plan of care was described to the patient and all questions were answered. Constitutional: No fever, No chills, No sweats Eyes: No worsening of vision ENT: No hearing loss Respiratory: No cough, No sputum, No wheezing, No shortness of breath, No dyspnea on exertion Cardiovascular: No chest pain Abdomen: No pain, No nausea, No vomiting, No diarrhea Psychiatric: No depression symptoms, No anxiety, No insomnia Objective Physical Exam General Appearance: WD/WN, no apparent distress Eyes: normal inspection Respiratory/Chest: chest non-tender, lungs clear, normal breath sounds, no respiratory distress, no accessory muscle use Cardiovascular: no edema, no gallop, no JVD, no murmur, + tachycardia (sinus from my appreciation) Abdomen: normal bowel sounds, non tender, soft, no organomegaly, no pulsatile mass Extremities: normal range of motion, non-tender, normal inspection, no pedal edema, no calf tenderness 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 Blood and urine culture grew E. Coli sensitive to Cipro. Abx have been narrowed. Pt's pulse went up to 170bpm on a walk around the floor on 06/26/17. Pending final culture and sensitivities to blood cultures. Sepsis from E. Coli UTI: - UCx 06/22 - E. coli with sensitivity to ciprofloxacin, will switch to PO cipro. - BCx - grew E. Coli as well. - Zosyn and Vancomycin stopped and switch to cipro Acute Normocytic Anemia: - Source includes possibility of previous hip surgery vs colon source, - did rectal exam today and stool sent to lab for haemoccult - CBC was 6.9 and received 2 units on June 24 overnight. Hgb stable at 8.2 - iron low, b12 low and folate low - will supplement PO B12 2 weeks -->4 months, folate 3 weeks or until resolved and ferrous sulfate for at least 3 months (however patient has allergy to iron therefore may need another way to receive iron) ELISABET (resolved) Creatinine 1.6 on admission, 1.0 now. Fatigue - likely to be due to anemia - tsh wnl - b12, folate and iron all low Hyponatremia: Hypovolemic (resolved) - Sodium 140 this morning, will continue to monitor - Good PO intake DVT: - Has had multiple provoked DVTs after surgeries and maintains on Coumadin with therapeutic INR - Coumadin 7.5 mg M,W,Th,Sat,Sun and 10 mg T,Fr Paroxysmal Atrial Fibrillation: - Toprol XL increased to 50 bid as heart rate in low 100's, was on 25 bid at home - We will continue to watch, no evidence that the pt has been in Afib on admission. - will get EKG tomorrow AM. Gout: - c/w Allopurinol 100 mg daily and Colchicine 0.6 mg daily Constipation: - Likely element of opioid induced - Colace 100 mg BID, Milk of Mag/Miralax PRN, and add Senna daily Peripheral Neuropathy: - Gabapentin 300 mg tid per patient DVT Prophylaxis: Coumadin Disposition: - PT evaluation - given recent surgery - OT - SS- Likely Home With Services. FULL CODE Resident Physician Supervision Note: I interviewed and examined the patient. Discussed with Dr. Alarcon and agree with findings and plan as documented in the note. Any exceptions or clarifications are listed here: None Documented By: Fazal Reddy feeling better, was very tachycardic w exertion but only mildly dyspnic. definitely feels better than before. present, updated and answered all questions to the best of my ability. vitlas noted nad breathing unlabored no pallor or icterus. monitor strips appear sinus tachy, with artifact in some areas does create possible illusion of fib/flutter, but definitely not clearly so weakness - due to UTI + sepsis + anemia - all improving UTI + sepsis/bacteremia - improving. await further growth on blood cultures. continue cipro pending final sensitivities anemia - with low Fe, B12, folate -- suspect that his anemia was the normal amount of blood loss we see w total joints, but with nearly no meaningful marrow response Fe, B12, folate deficiencies - no clear etiology. replace and follow. outpt would anticipate GI eval and EGD to eval for malabsorption syndromes tachycardia - appearing exertional due to above. anticipate improvement with this and HERNANDEZ as all of above get better. Resident Involvement: Resident Care Provided Care Provided: Adult Hospital Medicine
[2017-06-26] MEDS: WARFARIN SOD 7.5 MG TAB PO SCH (15:46)
[2017-06-26] MEDS: SENNA 8.6 MG TAB PO SCH (20:56)
[2017-06-26] MEDS: GABAPENTIN 300 MG CAP PO SCH (20:56)
[2017-06-26] MEDS: ALPRAZOLAM 0.5 MG TAB PO PRN (21:02)
[2017-06-26] MEDS: OXYCODONE HCL IR 5 MG TAB (IMMEDIATE RELEASE) PO PRN (21:03)
[2017-06-27] VITALS (12 sets, daily range): BP systolic 113–156; BP diastolic 77–85; PULSE 78–102; TEMP 36.4–36.8; O2SAT 95–98
[2017-06-27] MEDS: ACETAMINOPHEN 500 MG TAB PO SCH ×3 (05:48→22:29)
[2017-06-27 06:15] LABS: INR 2.1 (0.9-1.1); PROTHROMBIN TIME (PATIENT) 23.2 SECONDS (9.0-12.0)
--- NOTE | 2017-06-27 06:51 | Family Medicine Progress Note ---
Progress Note Date of Service Jun 27, 2017. Subjective Pt evaluation today including: conversation w/ patient, physical exam, chart review, lab review The patient was seen and examined at bedside. No acute overnight events. Pt was wondering why he was having contact precautions. Patient is resting comfortably in bed. Denies having any pain. Eating and urinating well. Plan of care was described to the patient and all questions were answered. Constitutional: No see HPI, No fever, No chills, No sweats ENT: No hearing loss Respiratory: No cough, No sputum, No wheezing, No shortness of breath Abdomen: No pain, No nausea, No vomiting, No diarrhea Male : No dysuria Endo: No fatigue Objective Physical Exam General Appearance: WD/WN, no apparent distress Eyes: PERRL ENT: TMs normal Neck: supple Respiratory/Chest: chest non-tender, lungs clear, normal breath sounds, no respiratory distress, no accessory muscle use Cardiovascular: regular rate, rhythm, no edema, no gallop, no JVD, no murmur Abdomen: normal bowel sounds, non tender, soft, no organomegaly Extremities: normal range of motion, non-tender, normal inspection, no pedal edema, no calf tenderness Neurologic/Psychiatric: no motor/sensory deficits, alert, normal mood/affect, oriented x 3 Skin: no rash Assessment and Plan 66M with PMHx of Gout, 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 Blood and urine culture grew E. Coli sensitive to Cipro. Abx have been narrowed. Pt's pulse went up to 170bpm on a walk around the floor on 06/26/17. Pending final culture and sensitivities to blood cultures. Will likely need outpatient monitoring for an elevated heart rate and blocked PACs on tele. Sepsis from E. Coli UTI: - UCx 06/22 - E. coli with sensitivity to ciprofloxacin, will switch to PO cipro. - BCx - grew E. Coli as well, pending sensitivities. - Zosyn and Vancomycin stopped and switch to cipro Acute Normocytic Anemia: - Source includes possibility of previous hip surgery vs colon source, - did rectal exam today and stool sent to lab for haemoccult - CBC was 6.9 and received 2 units on June 24 overnight. Hgb stable at 8.2 - iron low, b12 low and folate low - will supplement PO B12 2 weeks -->4 months, folate 3 weeks or until resolved and ferrous sulfate for at least 3 months (however patient has allergy to iron therefore may need another way to receive iron) ARF present on admission (resolved) Creatinine 1.6 on admission, 1.0 now. Fatigue - likely to be due to anemia - tsh wnl - b12, folate and iron all low Hyponatremia: Hypovolemic (resolved) - Will continue to monitor - Good PO intake DVT: - Has had multiple provoked DVTs after surgeries and maintains on Coumadin with therapeutic INR - Coumadin 7.5 mg M,W,Th,Sat,Sun and 10 mg T,Fr Paroxysmal Atrial Fibrillation: - Toprol XL increased to 50 bid as heart rate in low 100's, was on 25 bid at home. - EKG showed sinus rhythm with non conducted PACs. - Pt has not been in Afib since admission. Gout: - c/w Allopurinol 100 mg daily and Colchicine 0.6 mg daily Constipation: - Likely element of opioid induced - Colace 100 mg BID, Milk of Mag/Miralax PRN, and add Senna daily Peripheral Neuropathy: - Gabapentin 300 mg tid per patient DVT Prophylaxis: Coumadin Disposition: - PT evaluation - given recent surgery - OT - SS- Likely Home With Services. Resident Physician Supervision Note: I interviewed and examined the patient. Discussed with Dr. Alarcon and agree with findings and plan as documented in the note. Any exceptions or clarifications are listed here: None Documented By: Fazal Reddy feeling better still tachy w exertion but much less so. had some appearance of skipped beats last night - totally asymptomatic. reviewed tracings and appear most consistent with blocked PAC. notes overall he's feeling much much better vitals noted nad breathing unlabored no pallor or icterus UTI w sepsis and bacteremia - improving. simply waiting on final ID&S of blood to know best choice of abx for home anemia w multiple deficiencies - stable now tachycardia, blocked PACs - all appearing benign rhythms. for safety, however, since he's shown fairly fast tachy and then blocked PACs, although benign, at the other end of the rate/rhythm spectrum - will set up for ambulatory monitoring once he's discharged home Resident Involvement: Resident Care Provided Care Provided: Adult Hospital Medicine
[2017-06-27] MEDS: FERROUS SULFATE 325 MG TAB PO SCH ×2 (08:08→17:40)
[2017-06-27] MEDS: ALLOPURINOL 100 MG TAB PO SCH (08:11)
[2017-06-27] MEDS: COLCHICINE 0.6 MG TAB PO SCH (08:11)
[2017-06-27] MEDS: CIPROFLOXACIN 500 MG TAB PO SCH ×2 (08:12→20:44)
[2017-06-27] MEDS: CYANOCOBALAMIN 500 MCG TAB (VIT B-12) PO SCH (08:12)
[2017-06-27] MEDS: METOPROLOL SUCC 50MG EXT REL TAB PO SCH ×2 (08:13→20:44)
[2017-06-27] MEDS: DOCUSATE SODIUM 100 MG CAP PO SCH ×2 (08:13→20:44)
--- NOTE | 2017-06-27 15:48 | PROGRESS NOTE ---
DATE: 06/27/2017 DATE: 06/27/2017 SUBJECTIVE: A 66-year-old gentleman 2.5 weeks out from a left uncemented total hip replacement complicated by urinary tract infection and sepsis. He is clinically doing pretty well. He is not having any hip pain. He does seem to get tachycardic when getting up and walking. He still feels pretty wiped out. Denies any chest pain or shortness of breath. OBJECTIVE: VITAL SIGNS: Temperature is 36.7. Vital signs stable. PHYSICAL EXAMINATION: GENERAL: Reveals a pleasant, middle-aged male. He is sitting up in bed, looks pretty comfortable. EXTREMITIES: Examination of left hip reveals the incision to be clean, dry and intact. Fairly mild swelling. Hip is located. He has got no particular pain with hip motion. He can do a straight leg raise. LABORATORY DATA: INR 2.1. CULTURE RESULTS: He is growing 2 different types of gram negative bacilli from his bloodstream. ASSESSMENT: A 66-year-old gentleman 2-1/2 weeks out from a left uncemented total hip replacement complicated by a E. coli urinary tract infection and likely sepsis as a result. His hip seems to be doing well. It is always difficult to determine with this bacteremia whether his hip could be seeded as well. Clinically, does not appear so. His wound has healed nicely and he is not having any hip pain. PLAN: 1. DVT prophylaxis including thigh-high TEDs, SCDs, and Coumadin. His Coumadin is therapeutic. 2. PT/OT. He can weightbear as tolerated. Left total hip protocol. 3. Pain control. Seems to be doing well with fairly minimal pain medicine at this point. He can certainly take Tylenol and limit narcotics. 4. Sepsis/urinary tract infection. He is currently on antibiotics. I believe they are just waiting for final sensitivities to make sure he is being covered. 5. Disposition. He is orthopedically acceptable for discharge any time medically stable. Any orthopedic questions can be directed to me at [phone]. I need to see him back in about 6 weeks out from surgery unless there are further problems.
[2017-06-27] MEDS: WARFARIN SOD 10 MG TAB PO SCH (16:10)
[2017-06-27] MEDS: SENNA 8.6 MG TAB PO SCH (20:44)
[2017-06-27] MEDS: GABAPENTIN 300 MG CAP PO SCH (20:44)
[2017-06-27] MEDS: ALPRAZOLAM 0.5 MG TAB PO PRN (22:29)
[2017-06-27] MEDS: OXYCODONE HCL IR 5 MG TAB (IMMEDIATE RELEASE) PO PRN (22:33)
[2017-06-28 03:16] VITALS: BP 112/75; PULSE 92; TEMP 36.3; O2SAT 98
[2017-06-28] MEDS: ACETAMINOPHEN 500 MG TAB PO SCH ×2 (06:08→13:40)
[2017-06-28 07:14] LABS: HEMATOCRIT 29.9 % (42-52); MEAN CELL VOLUME 92.3 fL (80-100); MEAN CORPUSCULAR HEMOGLOBIN 29.9 pg (25-34); MEAN CORPUSCULAR HGB CONC 32.4 g/dl (32-36); MEAN PLATELET VOLUME 8.2 fL (7.4-10.4); PLATELET COUNT 507 K/uL (130-400); RED BLOOD COUNT 3.24 M/uL (4.7-6.1); WHITE BLOOD COUNT 8.98 K/uL (4.8-10.8)
[2017-06-28 07:23] LABS: INR 2.3 (0.9-1.1); PROTHROMBIN TIME (PATIENT) 25.3 SECONDS (9.0-12.0)
[2017-06-28 07:40] LABS: BASO % 0.7 %; BASO ABS # 0.06 K/uL (0-0.2); COMPLETE YES; EOS % 3.3 %; IG% 5.3 %; LYMPH % 22.8 %; LYMPH ABS # 2.05 K/uL (1.2-3.4); MONO % 13.7 %; NEUT % 54.2 %
[2017-06-28 07:46] LABS: BUN/CREATININE RATIO 10.7 (10-20); CALCIUM 9.2 mg/dl (8.5-10.1); MAGNESIUM 2.1 mg/dl (1.8-2.4); POTASSIUM 3.9 mmol/L (3.5-5.1)
[2017-06-28 08:24] VITALS: BP 112/78; PULSE 98; TEMP 36.4; O2SAT 95
[2017-06-28] MEDS: COLCHICINE 0.6 MG TAB PO SCH (09:07)
[2017-06-28] MEDS: CYANOCOBALAMIN 500 MCG TAB (VIT B-12) PO SCH (09:07)
[2017-06-28] MEDS: METOPROLOL SUCC 50MG EXT REL TAB PO SCH (09:08)
[2017-06-28] MEDS: FERROUS SULFATE 325 MG TAB PO SCH (09:08)
[2017-06-28] MEDS: ALLOPURINOL 100 MG TAB PO SCH (09:08)
[2017-06-28] MEDS: CIPROFLOXACIN 500 MG TAB PO SCH (09:08)
[2017-06-28] MEDS: DOCUSATE SODIUM 100 MG CAP PO SCH (09:08)
--- NOTE | 2017-06-28 12:44 | PROGRESS NOTE ---
DATE: 06/28/2017 DATE: 06/28/2017 SUBJECTIVE: A 66-year-old gentleman now a little over 2-1/2 weeks out from a left uncemented total hip replacement complicated by sepsis and bacteremia from a urinary tract infection growing out E. coli. He is doing well. Seems to be getting a little better daily. Still pretty wiped out. Denies any chest pain or shortness of breath. No real significant hip pain. OBJECTIVE: VITAL SIGNS: Temperature 36.4. Vital signs stable. PHYSICAL EXAMINATION: GENERAL: Reveals a pleasant, middle-aged male. He is sitting up at his bedside chair and looks pretty comfortable. EXTREMITIES: Examination of left hip reveals incision to be clean, dry and intact. Minimal swelling. No signs of drainage or infection. Hip is located. He can do a straight leg raise. Minimal to no pain with hip motion. LABORATORY DATA: His hemoglobin was 9.7. Hematocrit 29.9. Electrolytes are stable. INR 2.3. His platelet count is stable. ASSESSMENT: A 66-year-old gentleman little over 2-1/2 weeks out from left uncemented total hip arthroplasty complicated by urinary tract infection, sepsis and making gradual improvements. Still pretty wiped out. His hip appears to be healing well. No signs of infection in his hip. PLAN: 1. DVT prophylaxis including thigh-high TEDs, SCDs, and Coumadin. 2. PT/OT. Weight bear as tolerated. Left total hip protocol. 3. Pain control. Doing pretty well with current pain regimen. 4. Antibiotics as per the medical service. 5. Disposition. I just need to see him back about 6 weeks out from surgery. Any orthopedic questions can be directed to me at [phone].
[2017-06-28 13:07] VITALS: BP 110/75; PULSE 94; TEMP 36.3; O2SAT 97
[2017-06-28] MEDS ORDERED: FLV1 PO (13:15)
[2017-06-28] MEDS ORDERED: VTMB12 PO (13:15)
[2017-06-28] MEDS ORDERED: CPR500 PO (13:15)
[2017-06-28] MEDS ORDERED: FRRS300 PO (13:15)
--- NOTE | 2017-06-28 13:22 | Discharge Instructions ---
Discharge Instructions Date of Service Jun 28, 2017. Admission Reason for Admission: Sepsis Discharge Discharge Diagnosis / Problem: E. Coli Bacteremia Discharge Goals Goal(s): Decrease discomfort, Improve function, Increase independence, Improve disease control, Improve nutritional status, Learn about illness Activity Recommendations Activity Limitations: per Instructions/Follow-up section . Instructions / Follow-Up Instructions / Follow-Up Please follow up with your PCP at the appointment arranged for you. Please follow up with the Associate Financial Representative. An appointment has been made for you. Please keep this appointment. You should see the Associate Financial Representative for your low Vitamin B12, Folic Acid and Iron Levels. While you were in the hospital we found a bacteria called E. Coli growing in your Blood. This bacteria is sensitive to the antibiotic we are sending you home with called Ciprofloxacin. Please take the Ciprofloxacin as prescribed. Discharge information about B12, folic acid, iron deficiency and Ciprofloxacin will be given to you. Please read this information thoroughly. While in the hospital we also found that you were anemic due to low B12, Folic Acid and low iron. We supplemented you with B12, folic acid and iron and your anemia improved. We would like for you to continue supplementing with B12, Folic Acid and Iron on discharge. Prescriptions have been given to you for these vitamins and minerals. Folic acid is also known as folate, you will see the names used interchangeably in literature. We are sending you home with a heart monitor to check your heart rhythm. While you were in the hospital your heart rate had a [id number] rhythm. This heart monitor would be a continuation of the monitoring done in the hospital. Go to the ER if you experience crushing chest pain or acute onset shortness of breath. You may resume all of your other medications as described above except the Bactrim. You can stop taking the Bactrim. Current Hospital Diet Patient's current hospital diet: Regular Diet Discharge Diet Recommended Diet: AHA Diet (Heart Healthy) Pending Studies Studies pending at discharge: no Medical Emergencies . Who to Call and When: Medical Emergencies: If at any time you feel your situation is an emergency, please call 911 immediately. . Non-Emergent Contact Non-Emergency issues call your: Primary Care Provider, Associate Financial Representative . . "Provider Documentation" section prepared by Yonathan Alarcon. . VTE Core Measure Inpt VTE Proph given/why not?: Warfarin (Coumadin), SCD's Resident Involvement: Resident Care Provided Care Provided: Adult [facility]
[2017-06-28 15:56] VITALS: BP 110/75; PULSE 94; TEMP 36.3; O2SAT 97
--- NOTE | 2017-06-28 15:59 | Discharge Summary ---
Discharge Summary Date of Service Jun 28, 2017. (Yonathan Alarcon M.D.) Discharge Summary Admission Date: Jun 23, 2017 at 15:28 Discharge Date: Jun 28, 2017 Discharge Disposition: Home Principal Diagnosis: E. Coli Bacteremia Immunizations: Have You Had Influenza Vaccine: N/A History of Tetanus Vaccine?: No History of Pneumococcal: No History of Hepatitis B Vaccine: Unknown Procedures: CHEST ONE VIEW PORTABLE CLINICAL HISTORY: 66 years-old Male presenting with Evaluate Fever/Sepsis. TECHNIQUE: Portable upright AP view of the chest was obtained. COMPARISON: 06/10/2017. FINDINGS: Prominence of the cardiomediastinal silhouette in part due to mildly low lung volumes. Left basilar opacity. No large pleural effusion or pneumothorax. Right lung clear. Osseous structures normal. Upper abdomen normal. IMPRESSION: 1. Mildly low lung volumes with hypoventilatory changes. Suspected left basilar atelectasis. No significant change since the prior exam. EKG: Sinus rhythm with marked sinus arrhythmia with 1st degree A-V block and nonconducted PAC low voltage in the precordial leads Abnormal ECG When compared with ECG of 27-JUN-2017 03:46, (unconfirmed) Nonspecific T wave abnormality now evident in Anterior leads Confirmed by Rafael Villeda ([id number]) on 06/27/2017 9:23:10 AM (Yonathan Alarcon M.D.) Discharge Disposition: Home (Fazal Reddy D.O.) Medication Reconciliation New Medications: Ciprofloxacin (Ciprofloxacin HCl) 500 Mg Tab 500 MG PO BID for 10 Days, #20 TAB Cyanocobalamin (Vitamin B-12) 500 Mcg Tab 2000 MCG PO QAM for 30 Days, #120 TAB Ferrous Sulfate (Ferrous Sulfate) 325 Mg Tab 325 MG PO BIDM for 30 Days, #30 TAB Folic Acid (Folic Acid) 1 Mg Tab 1 MG PO QAM for 30 Days, #30 TAB Continued Medications: Allopurinol (Zyloprim) 100 Mg Tab 100 MG PO QAM, TAB Colchicine (Colchicine) 0.6 Mg Tab 0.6 MG PO QAM, TAB Cyclobenzaprine Hcl (Flexeril) Unknown Strength Tab 1 TAB PO TID PRN Docusate Sodium (Colace) 100 Mg Cap 100 MG PO BID Gabapentin (Neurontin) 100 Mg Cap 300 MG PO HS, CAP Metoprolol Succinate (Toprol Xl) 25 Mg Tabcr 25 MG PO BID Oxycodone HCl (Oxycodone HCl) 5 Mg Tab 10 MG PO Q6H PRN for Pain for 30 Days, #40 TAB Take as needed for Pain. Warfarin Sod (Jantoven) 7.5 Mg Tab 7.5 MG PO 5XWK, TAB mon, wed, th, sat and sun Warfarin Sod (Jantoven) 10 Mg Tab 10 MG PO 2XWK, TAB Tu & Mon Discontinued Medications: Sulfa/Trimethoprim (Bactrim Ds 800MG/160MG) Tab 1 TAB PO BID Discharge Exam The patient was seen and examined at bedside. No acute overnight events. Tele was showing sinus rhythm in the 80s and 90s. Patient is resting comfortably in bed. Denies having any pain. Eating and urinating well. Plan of care was described to the patient and all questions were answered. Constitutional: No see HPI, No fever, No chills, No sweats ENT: No hearing loss Respiratory: No cough, No sputum, No wheezing, No shortness of breath Abdomen: No pain, No nausea, No vomiting, No diarrhea Male : No dysuria Endo: No fatigue Physical Exam General Appearance: WD/WN, no apparent distress Eyes: PERRL ENT: TMs normal Neck: supple Respiratory/Chest: chest non-tender, lungs clear, normal breath sounds, no respiratory distress, no accessory muscle use Cardiovascular: regular rate, rhythm, no edema, no gallop, no JVD, no murmur Abdomen: normal bowel sounds, non tender, soft, no organomegaly Extremities: normal range of motion, non-tender, normal inspection, no pedal edema, no calf tenderness Neurologic/Psychiatric: no motor/sensory deficits, alert, normal mood/affect, oriented x 3 Skin: no rash (Yonathan Alarcon M.D.) Hospital Course 66M with PMHx of Gout, 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 Urine cultures grew E. Coli sensitive to Cipro and Blood cultures grew two species of E. Coli both sensitive to Cipro. The suspected source was an indwelling catheter from a recent hip surgery. Throughout the visit pt had good movement in his hips and did not complain of pain. Hospital course was complicated by tachycardia (up to 170s while walking) . In the hospital we increased his dose of Metoprolol to 50mg BID then 75mg BID - pt was advised that his tachycardia was likely reactive to his infection. A B12, folic acid and iron deficient anemia was also noticed while in the hospital that was also corrected. Telemetry monitoring showed sinus rhythm with blocked PACs. Most recent EKG results are as above that show a 1st degree block. Patient was discharged on a 10 day course of Cipro to complete a two week total course. Patient was also sent with an Rx for Vitamin B12, Folic Acid and Iron. - GI follow up with Dr. Lyons was also arranged. Because of the frequent PACs and the tachycardia pt was sent home with a heart monitor that will be mailed to the patient. Upon discharge pt was told to resume his home dose of 25mg BID of Metoprolol. While in the hospital the pt's regular medication for Gout and Neuropathy were continued. Patient was discharged in good condition. Total Time Spent: Greater than 30 minutes (45min) This includes examination of the patient, discharge planning, medication reconciliation, and communication with other providers. (Yonathan Alarcon M.D.) Resident Physician Supervision Note: I interviewed and examined the patient. Discussed with Dr. Alarcon and agree with findings and plan as documented in the note. Any exceptions or clarifications are listed here: None Documented By: Fazal Reddy feeling better, ready to go home. hip doing well. feeling better all around. HR improved. extensive discussion w pt and on sepsis, HR, deficiencies, etc. all questions answered to the best of our ability vitals noted nad breathing unlabored no pallor or icterus UTI w sepsis and bacteremia - now improved -blood w 2 strains E Coli sensitive to quinolones, urine w one strain sensitive to quinolones - home on cipro to complete 2wks ARF - due to above - resolved Fe/B12/folic acid deficiency anemia - acute appearing due to blood loss related to hip surgery with worse than expected due to deficiencies likely making it impossible for marrow to mount adequate response -required 2 units transfusion -now stable -stools heme negative -outpt f/u - replace deficiencies, follow levels -GI eval and probable EGD for ?malabsorption syndromes otherwise as above Total Time Spent: Less than 30 minutes (Fazal Reddy D.O.) Discharge Instructions Please refer to the electronic Patient Visit Report (Discharge Instructions) for additional information. (Yonathan Alarcon M.D.) Follow-Up Dr. Rosales's Office per regularly schedule appointments. Dr. Lyons GI for Anemia Dr. Joyner - PCP (Yonathan Alarcon M.D.) Additional Copies To Nick Rosales M.D.; Cristal Joyner M.D. Resident Involvement: Resident Care Provided Care Provided: Adult [facility] Medicine (Yonathan Alarcon M.D.)
== END 2017-06-28 16:25 | disposition home or self-care (01) | DRG 872 ==
LOC: C.EDB 12:47 → C.2T 15:28 → ENRESERV 15:45
PROVIDERS: ADMIT Hospitalist; ATTEND Family Medicine
DX: A41.9 Sepsis, unspecified organism (principal); N39.0 Urinary tract infection, site not specified; E87.1 Hypo-osmolality and hyponatremia; N17.9 Acute kidney failure, unspecified; D64.9 Anemia, unspecified; E86.0 Dehydration; Z86.718 Personal history of other venous thrombosis and embolism; Z86.711 Personal history of pulmonary embolism; I48.0 Paroxysmal atrial fibrillation; G62.9 Polyneuropathy, unspecified; Z96.642 Presence of left artificial hip joint; B96.20 Unspecified Escherichia coli [E. coli] as the cause of diseases classified elsewhere; K59.03 Drug induced constipation; E86.1 Hypovolemia; D50.0 Iron deficiency anemia secondary to blood loss (chronic); E53.8 Deficiency of other specified B group vitamins

== ENCOUNTER 2017-07-07 17:01 | Inpatient (IN) | payer OTHER ==
[~2017-07-07] VITALS: Ht 193 cm; Wt 113.1 kg
[~2017-07-07 17:01] MED LIST changes: -CYAN100020 PO; -FERR325T5 PO; -FOLI1TAB7 PO; -OXYC-609 PO; -PRD20 PO; -TAMS0.4C38 PO; -TPRSR/25 PO; -WARF-246 PO
[2017-07-07] MEDS ORDERED: SODIUM CHLORIDE 0.9% 1000ML 1,000 ML IV STA (17:26)
[2017-07-07] MEDS ORDERED: VANCOMYCIN 1GM/270ML NSS IV STA (17:26)
[2017-07-07] MEDS ORDERED: PIPERACILLIN/TAZOBACTAM 4.5 GM/100ML D5W IV STA (17:26)
[2017-07-07] MEDS ORDERED: WARF-246 PO ×2 (17:51)
[2017-07-07] MEDS ORDERED: OXYC-609 PO (17:51)
[2017-07-07] MEDS ORDERED: TPRSR/25 PO (17:51)
[2017-07-07] MEDS ORDERED: FOLI1TAB7 PO (17:53)
[2017-07-07] MEDS ORDERED: CYAN100020 PO (17:53)
[2017-07-07] MEDS ORDERED: FERR325T5 PO (17:53)
[2017-07-07 18:04] LABS: BASO % 0.3 %; BASO ABS # 0.05 K/uL (0-0.2); COMPLETE YES; EOS % 0.6 %; HEMATOCRIT 34.7 % (42-52); IG% 0.7 %; LYMPH % 10.2 %; LYMPH ABS # 1.78 K/uL (1.2-3.4); MEAN CELL VOLUME 93.8 fL (80-100); MEAN CORPUSCULAR HEMOGLOBIN 30.8 pg (25-34); MEAN CORPUSCULAR HGB CONC 32.9 g/dl (32-36); MEAN PLATELET VOLUME 8.8 fL (7.4-10.4); MONO % 12.4 %; NEUT % 75.8 %; PLATELET COUNT 418 K/uL (130-400)
[2017-07-07 18:10] LABS: ISTAT CREATININE 1.3 mg/dl (0.6-1.3); ISTAT HEMOGLOBIN 12.2 g/dl (14.0-18.0); ISTAT IONIZED CALCIUM 1.1 mmol/l (1.12-1.32)
[2017-07-07 18:25] LABS: INR 1.8 (0.9-1.1); PROTHROMBIN TIME (PATIENT) 19.4 SECONDS (9.0-12.0)
--- NOTE | 2017-07-07 18:36 | DIAGNOSTIC IMAGING REPORT ---
RIGHT ANKLE 3 VIEWS CLINICAL HISTORY: Right ankle pain. FINDINGS: 3 views of the right ankle are compared to study dated 12/07/2016. The skeletal structures are osteopenic. No fracture is seen. The ankle mortise is intact. Degenerative spurring is seen along the dorsal aspect of the tarsal bones. No large joint effusion is identified. Soft tissue swelling is present around the ankle. IMPRESSION: 1. Soft tissue swelling with no radiographic evidence of right ankle fracture. 2. Osteopenia and arthritic change as above. Electronically signed by: Harvey Bunch M.D. 07/07/2017 6:35 PM Dictated Date/Time: 07/07/2017 6:34 PM
--- NOTE | 2017-07-07 18:39 | DIAGNOSTIC IMAGING REPORT ---
SINGLE VIEW CHEST CLINICAL HISTORY: Fever. FINDINGS: An AP, portable, upright chest radiograph is compared to study dated 06/23/2017 and correlated with chest CT dated 06/10/2017. The examination is degraded by portable technique and patient rotation. The heart is enlarged. The pulmonary vasculature is noncongested. There is chronic elevation of the left hemidiaphragm and bibasilar atelectasis. No airspace consolidation is seen typical for pneumonia and there is no large pleural effusion. No pneumothorax is seen. The skeletal structures are osteopenic. The bony thorax is grossly intact. IMPRESSION: Cardiomegaly and bibasilar atelectasis. There is no acute cardiopulmonary abnormality. Electronically signed by: Harvey Bunch M.D. 07/07/2017 6:38 PM Dictated Date/Time: 07/07/2017 6:37 PM
[2017-07-07 18:50] LABS: URINE APPEARANCE CLEAR (CLEAR); URINE BILIRUBIN NEG (NEG); URINE COLOR YELLOW; URINE NITRITE NEG (NEG); URINE PH 6.5 (4.5-7.5); UROBILINOGEN NEG (NEG); ZZUR CULT IF INDIC CLEAN CATCH NO
[2017-07-07 18:50] LABS: ALKALINE PHOSPHATASE 157 U/L (45-117); ALT/SGPT 31 U/L (12-78); AST/SGOT 44 U/L (15-37); BLOOD UREA NITROGEN 19 mg/dl (7-18); BUN/CREATININE RATIO 13.4 (10-20); CALCIUM 8.8 mg/dl (8.5-10.1); CARBON DIOXIDE 28 mmol/L (21-32); CHLORIDE 99 mmol/L (98-107); GLUCOSE 109 mg/dl (70-99); MAGNESIUM 1.7 mg/dl (1.8-2.4); POTASSIUM 4.2 mmol/L (3.5-5.1); SODIUM 134 mmol/L (136-145)
[2017-07-07 18:52] LABS: MANUAL MICROSCOPIC REQUIRED? NO; REVIEW REQ? NO
[2017-07-07] MEDS ORDERED: VANCOMYCIN INJ 2,000 MG in SODIUM CHLORIDE 0.9% 500ML 500 ML IV ONE (19:00)
[2017-07-07 19:26] VITALS: Ht 193 cm; Wt 113.1 kg
[2017-07-07] MEDS ORDERED: ALUMINUM/MAGNESIUM/SIMETH (MAALOX MAX) 30 ML UDC PO PRN (20:15)
[2017-07-07] MEDS ORDERED: ZOLPIDEM TARTRATE 5 MG TAB PO PRN (20:15)
[2017-07-07] MEDS ORDERED: ACETAMINOPHEN 325 MG TAB PO PRN (20:15)
[2017-07-07] MEDS ORDERED: MAGNESIUM HYDROXIDE SUSP 30 ML UDC PO PRN (20:15)
[2017-07-07] MEDS ORDERED: POLYETHYLENE (MIRALAX) 17 GM PACK PO PRN (20:15)
[2017-07-07] MEDS ORDERED: OXYCODONE/ACETAMINOPHEN 10/325MG TAB PO PRN (20:15)
[2017-07-07] MEDS ORDERED: ONDANSETRON INJ 2 MG/ML 2 ML VIAL IV PRN (20:15)
--- NOTE | 2017-07-07 20:59 | History and Physical ---
History & Physical Date & Time of Service: Jul 07, 2017 at 20:18 Chief Complaint: Elevated Temp, Elevated Wbc Primary Care Physician: Cristal Joyner M.D. 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 Pt was admitted 06/23 with urosepsis and remained hospitalized for 5 days. Cultures proved + for E. coli. He was D/Cd to complete a 2 week course of Cipro. He developed pain and inflammation of his R lat ankle in addition to two toes of his L foot approximately 2 days prior. He then developed progressive weakness, fever and urinary hesitancy over the course of the day. A fever and marked leukocytosis were noted on arrival to the hospital. Initial UA is negative. Uric acid is WNL. AN XR of the R ankle is consistent with inflammation and otherwise nonspecific. We do not currently have a definitive source of infection. He denies SOB, CP, N/V/D and does not have pain with urination. During his recent admission, the pt was exhibiting episodes of tachycardia which appeared to be sinus. He reports being borderline tachycardic since leaving the hospital and was sent home with a halter monitor per his PCP. Past Medical/Surgical History 1) Gout 2) Urinary hesitancy 3) Iron-deficient anemia 4) Malabsorption syndrome - undefined - pending GI evaluation - deficient in Iron, Folate, B12, protein 5) Paroxysmal AF - treated with Coumadin 6) DVT/PE 7) Iron-deficient anemia - baseline Hb 11 8) L hip replacement 06/11 9) R ankle surgery - hardware placement 10) Sinus tachycardia Family History Patient reports no known family medical history. Social History Smoking Status: Never Smoker Drug Use: none Marital Status: Housing status: lives with family Occupational Status: employed Immunizations History of Influenza Vaccine: N/A History of Tetanus Vaccine?: No History of Pneumococcal: No History of Hepatitis B Vaccine: Unknown Multi-Drug Resistant Organisms History of MDRO: No Allergies Coded Allergies: Iron (Verified Adverse Reaction, Unknown, TACHYCARDIA, 07/07/17) IV iron only, can take iron tablets Home Medications Scheduled Allopurinol (Zyloprim), 100 MG PO QAM Colchicine (Colchicine), 0.6 MG PO QAM Cyanocobalamin (Vitamin B12), 2,000 MCG PO DAILY Docusate Sodium (Colace), 100 MG PO BID Ferrous Sulfate (Ferrous Sulfate), 325 MG PO BIDM Folic Acid (Folvite), 1 MG PO QAM Gabapentin (Neurontin), 100 MG PO HS Metoprolol Succinate (Metoprolol Succinate ER), 25 MG PO BID Warfarin Sodium (Warfarin Sodium), 7.5 MG PO 5XWK Warfarin Sodium (Warfarin Sodium), 10 MG PO 2XWK Scheduled PRN Oxycodone HCl (Oxycodone HCl), 5 MG PO Q6H PRN for Pain Review of Systems Constitutional: + fever, + chills, + sweats, + weakness Eyes: No worsening of vision ENT: No hearing loss, No unusual epistaxis, No nasal symptoms Respiratory: No cough, No sputum, No wheezing Cardiovascular: No chest pain, No orthopnea, No PND Abdomen: No pain, No nausea, No vomiting Musculoskeletal: + joint pain (Pain in R ankle laterally - pain in mid two toes L foot) Genitourinary - Male: No hematuria, No dysuria Neurologic: No memory loss, No paralysis, No weakness Psychiatric: No depression symptoms Endocrine: + fatigue Hematologic / Lymphatic: No abnormal bleeding/bruising Integumentary: + rash (inflammation at ankle and toes as above ) Physical Exam Vital Signs Date Time Temp Pulse Resp B/P (MAP) Pulse Ox O2 Delivery O2 Flow Rate FiO2 07/07/17 19:26 Room Air 07/07/17 19:07 109 20 106/74 97 Room Air 07/07/17 17:08 37.8 126 18 107/66 96 Room Air General Appearance: WD/WN, no apparent distress Head: normocephalic Eyes: normal inspection ENT: normal ENT inspection, hearing grossly normal, TMs normal, pharynx normal Neck: supple, no JVD Respiratory/Chest: chest non-tender, lungs clear, normal breath sounds Cardiovascular: regular rate, rhythm, no edema, no gallop Abdomen/GI: normal bowel sounds, non tender, soft Back: normal inspection, no CVA tenderness Extremities/Musculoskelatal: no calf tenderness, normal capillary refill, + pertinent finding (erythema , pain over R lat malleolus - inflamation noted of 2 toes R foot) Neurologic/Psych: produce weigher II-XII nml as tested, no motor/sensory deficits, alert, normal mood/affect, normal reflexes, oriented x 3 Skin: + pertinent finding Diagnostics Laboratory Results Results Past 24 Hours Test 07/07/17 17:43 07/07/17 17:54 07/07/17 17:57 07/07/17 18:30 Range/Units White Blood Count 17.40 4.8-10.8 K/uL Red Blood Count 3.70 4.7-6.1 M/uL Hemoglobin 11.4 14.0-18.0 g/dL Hematocrit 34.7 42-52 % Mean Corpuscular Volume 93.8 80-100 fL Mean Corpuscular Hemoglobin 30.8 25-34 pg Mean Corpuscular Hemoglobin Concent 32.9 32-36 g/dl Platelet Count 418 130-400 K/uL Mean Platelet Volume 8.8 7.4-10.4 fL Neutrophils (%) (Auto) 75.8 % Lymphocytes (%) (Auto) 10.2 % Monocytes (%) (Auto) 12.4 % Eosinophils (%) (Auto) 0.6 % Basophils (%) (Auto) 0.3 % Neutrophils # (Auto) 13.18 1.4-6.5 K/uL Lymphocytes # (Auto) 1.78 1.2-3.4 K/uL Monocytes # (Auto) 2.16 0.11-0.59 K/uL Eosinophils # (Auto) 0.11 0-0.5 K/uL Basophils # (Auto) 0.05 0-0.2 K/uL RDW Standard Deviation 51.2 36.4-46.3 fL RDW Coefficient of Variation 15.2 11.5-14.5 % Immature Granulocyte % (Auto) 0.7 % Immature Granulocyte # (Auto) 0.12 0.00-0.02 K/uL Prothrombin Time 19.4 9.0-12.0 SECONDS Prothromb Time International Ratio 1.8 0.9-1.1 Sodium Level 134 136-145 mmol/L Potassium Level 4.2 3.5-5.1 mmol/L Chloride Level 99 98-107 mmol/L Carbon Dioxide Level 28 21-32 mmol/L Anion Gap 7.0 15.0 16-25 mmol/L Blood Urea Nitrogen 19 7-18 mg/dl Creatinine 1.40 0.60-1.40 mg/dl Estimated GFR () 59.8 Estimated GFR (Non- 51.6 BUN/Creatinine Ratio 13.4 10-20 Random Glucose 109 70-99 mg/dl Calcium Level 8.8 8.5-10.1 mg/dl Magnesium Level 1.7 1.8-2.4 mg/dl Total Bilirubin 1.2 0.2-1 mg/dl Direct Bilirubin 0.3 0-0.2 mg/dl Aspartate Amino Transf (AST/SGOT) 44 15-37 U/L Alanine Aminotransferase (ALT/SGPT) 31 12-78 U/L Alkaline Phosphatase 157 45-117 U/L Total Creatine Kinase 21 39-308 U/L Creatine Kinase MB < 0.5 0.5-3.6 ng/ml Creatine Kinase MB Ratio 0-3.0 Troponin I < 0.015 0-0.045 ng/ml Total Protein 8.0 6.4-8.2 gm/dl Albumin 3.1 3.4-5.0 gm/dl Bedside Lactic Acid Venous 1.07 0.90-1.70 mmol/L Bedside Hemoglobin 12.2 14.0-18.0 g/dl Bedside Hematocrit 36 42-52 % Bedside Sodium 135 135-144 mEq/L Bedside Potassium 4.3 3.3-5.0 mEq/L Bedside Chloride 98 101-112 mEq/L Bedside Total CO2 27 24-31 mEq/l Bedside Blood Urea Nitrogen 18 7-18 mg/dl Bedside Creatinine 1.3 0.6-1.3 mg/dl Bedside Glucose (other) 117 70-99 mg/dl Bedside Ionized Calcium (Vlad) 1.10 1.12-1.32 mmol/l Urine Color YELLOW Urine Appearance CLEAR CLEAR Urine pH 6.5 4.5-7.5 Urine Specific [place] 1.020 1.000-1.030 Urine Protein TRACE NEG Urine Glucose (UA) NEG NEG Urine Ketones NEG NEG Urine Occult Blood 2+ NEG Urine Nitrite NEG NEG Urine Bilirubin NEG NEG Urine Urobilinogen NEG NEG Urine Leukocyte Esterase TRACE NEG Urine WBC (Auto) 1-5 0-5 /hpf Urine RBC (Auto) 5-10 0-4 /hpf Urine Hyaline Casts (Auto) 1-5 0-5 /lpf Urine Epithelial Cells (Auto) 10-20 0-5 /lpf Urine Bacteria (Auto) NEG NEG Microbiology Results 07/07/17 Blood Culture, Received Pending 07/07/17 Blood Culture, Received Pending Diagnostic Radiology Ankle XR 1) Soft tissue swelling with no radiographic evidence of right ankle fracture. 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 Pt was admitted 06/23 with urosepsis and remained hospitalized for 5 days. Cultures proved + for E. coli. He was D/Cd to complete a 2 week course of Cipro. He developed pain and inflammation of his R lat ankle in addition to two toes of his L foot approximately 2 days prior. He then developed progressive weakness, fever and urinary hesitancy over the course of the day. Initial UA is negative. Uric acid is WNL. AN XR of the R ankle is consistent with inflammation and otherwise nonspecific. During his recent admission, the pt was exhibiting episodes of tachycardia which appeared to be sinus. He reports being borderline tachycardic since leaving the hospital and was sent home with a halter monitor per his PCP. 1) Fever - possible sources include L ankle - urine - prostatitis. We will obtain blood cultures, consult ID and place on broad-spectrum antibiotics. He may have been inadequately treated if this is prostatitis. Although there is soft tissue swelling over the R ankle, this is also present in his L toes and is consistent with gout despite a normal uric acid. He does take Colchicine and Allopurinol. We will provide a dose of prednisone to gauge effect. We may need an ortho consult if the R ankle is ultimately the suspected infection source. UA is initially negative urine culture is pending. 2) Urinary hesitancy - does not describe pain - states he feels like he needs to force out urine - we will start pt on IVF and Flomax - urology will be consulted. 3) PAF - currently sinus tach - wearing halter for 1 mo - current tachycardia may be due to underlying infection and fever - will continue daily Coumadin 4) Anemia - Hb appears stable - continue iron 5) Malabsorption - will provide protein supplements, folate, B12, iron as prescribed - pending a GI eval next wk Full code - Coumadin prophylaxis Total time for this admit including review of labs, eds, imaging - discussion with pt and ER attending - 42 min Level of Care Med/Surg Advanced Directives Existing Living Will: No Existing Power of Research Spec: No Resuscitation Status FULL RESUSCITATION VTE Prophylaxis VTE Risk Assessment Done? Y/N: Yes Risk Level: Moderate Given or contraindicated: Warfarin (Coumadin)
[2017-07-07] MEDS ORDERED: MAGNESIUM SULFATE 1GM / D5W 1 GM in PREMIXED IN D5W 100 ML IV STA (21:08)
[2017-07-07 21:16] VITALS: BP 124/78; PULSE 101; TEMP 37.2; O2SAT 94
[2017-07-07] MEDS: SODIUM CHLORIDE 0.9% 1000ML 1,000 ML IV SCH (21:41)
[2017-07-07] MEDS: METOPROLOL SUCC 25MG EXT REL TAB PO SCH (22:15)
[2017-07-07] MEDS: GABAPENTIN 100 MG CAP PO SCH (22:15)
[2017-07-07] MEDS: DOCUSATE SODIUM 100 MG CAP PO SCH (22:16)
[2017-07-07] MEDS ORDERED: VANCOMYCIN CONSULT ACTIVE PRN (22:30)
[2017-07-07] MEDS ORDERED: IMIPENEM/CILASTATIN CONSULT ACTIVE PRN (22:30)
[2017-07-07] MEDS: WARFARIN SOD 10 MG TAB PO SCH (22:31)
[2017-07-07] MEDS: IMIPENEM/CILASTATIN IV 500 MG in D5W 100ML IV SCH (22:51)
[2017-07-07 23:45] VITALS: BP 96/60; PULSE 101; TEMP 37; O2SAT 94
[2017-07-08] MEDS ORDERED: PIPERACILL/TAZOBAC IV 3.375 GM in DEXTROSE 5% 100ML 100 ML IV SCH ×2
--- NOTE | 2017-07-08 00:17 | EMERGENCY ROOM VISIT NOTE ---
History Report prepared by Jamee: Anthony Galdamez Under the Supervision of: Dr. Fazal Hancock D.O. First contact with patient: 17:11 Chief Complaint: ABNORMAL LABS Stated Complaint: ELEVATED TEMP, ELEVATED WBC History of Present Illness The patient is a 66 year old male who presents to the Emergency Room with complaints of constant weakness beginning earlier today. The patient states he was seen at the [facility] clinic today, and he was told to come to the ED immediately because his WBC was elevated. He reports he had a left hip replacement on June 09. The patient notes he was doing well for the first six days after his surgery. He states on the seventh day, he started experiencing excruciating pain in the buttock and leg. He states his pain lasted for multiple hours. The patient reports he was supposed to have his savanah taken out, so he was evaluated for a few days in the hospital. He notes he had his Patel catheter taken out on a Monday, and he was discharged on the . The patient states he was told he had a UTI and was septic. He reports he was feeling better until this morning. The patient notes he felt very weak. He states he did his therapy with his therapist as usual. The patient reports he has been experiencing a little pain with urination, an unsteady urine stream, nausea, and a fever since he was discharged. He states last night he developed swelling to his right leg, and he thought it was from his history of gout. The patient reports he stopped taking Cipro a few days ago , and he could feel himself getting weaker. He notes he is on a heart monitor. The patient denies cough, runny nose, shortness of breath, vomiting, abdominal pain, being around those that are sick, Tylenol use, and ibuprofen use. Source of History: patient Onset: today Position: other (global) Quality: other (weakness) Timing: constant Associated Symptoms: + fevers, + nausea, No cough, No SOB, No vomiting, No abdominal pain Note: Associated symptoms: little pain with urination and an unsteady urine stream Denies: runny nose Review of Systems See HPI for pertinent positives & negatives. A total of 10 systems reviewed and were otherwise negative. Past Medical & Surgical Medical Problems: (1) B12 deficiency (2) Fever (3) Folate deficiency (4) Iron (Fe) deficiency anemia (5) Left Hip DJD (6) LLE DVT, hypoxia (7) Sepsis (8) svt (9) Weakness Family History Patient reports no known family medical history. Social History Smoking Status: Never Smoker Alcohol Use: none Drug Use: none Marital Status: Housing Status: lives with family Occupation Status: employed Current/Historical Medications Scheduled Allopurinol (Zyloprim), 100 MG PO QAM Colchicine (Colchicine), 0.6 MG PO QAM Cyanocobalamin (Vitamin B12), 2,000 MCG PO DAILY Docusate Sodium (Colace), 100 MG PO BID Ferrous Sulfate (Ferrous Sulfate), 325 MG PO BIDM Folic Acid (Folvite), 1 MG PO QAM Gabapentin (Neurontin), 100 MG PO HS Metoprolol Succinate (Metoprolol Succinate ER), 25 MG PO BID Warfarin Sodium (Warfarin Sodium), 7.5 MG PO 5XWK Warfarin Sodium (Warfarin Sodium), 10 MG PO 2XWK Scheduled PRN Oxycodone HCl (Oxycodone HCl), 5 MG PO Q6H PRN for Pain Allergies Coded Allergies: Iron (Verified Adverse Reaction, Unknown, TACHYCARDIA, 07/07/17) IV iron only, can take iron tablets Physical Exam Vital Signs Date Time Temp Pulse Resp B/P (MAP) Pulse Ox O2 Delivery O2 Flow Rate FiO2 07/07/17 19:26 Room Air 07/07/17 19:07 109 20 106/74 97 Room Air 07/07/17 17:08 37.8 126 18 107/66 96 Room Air Physical Exam GENERAL: Sitting up in bed, disheveled, alert, non-toxic EYE EXAM: normal conjunctiva OROPHARYNX: no exudate, no erythema, lips, buccal mucosa, and tongue normal and mucous membranes are moist NECK: supple, no nuchal rigidity, no adenopathy, non-tender LUNGS: Clear to auscultation. Normal chest wall mechanics HEART: no murmurs, S1 normal and S2 normal CHEST: Halter monitor in place. ABDOMEN: abdomen soft, non-tender, normo-active bowel sounds, no masses, no rebound or guarding. HIP & LOWER EXTREMITIES: Left hips with incision which is clean, dry and intact , several sterility strips are in place. Flexion and extension of the hip, knee , and ankle are intact. Right ankle - swelling on the lateral aspect with no significant pain with rotation. Left foot - mild erythema of the first and third digit. BACK: Back is symmetrical on inspection and there is no deformity, no midline tenderness, no CVA tenderness. SKIN: no rashes and no bruising UPPER EXTREMITIES: upper extremities are grossly normal. NEURO EXAM: Normal sensorium, cranial nerves II-XII grossly intact, normal speech, no gross weakness of arms, no gross weakness of legs. Medical Decision & Procedures ER Provider Diagnostic Interpretation: Radiology results as stated below per my review and the radiologist's interpretation: SINGLE VIEW CHEST CLINICAL HISTORY: Fever. FINDINGS: An AP, portable, upright chest radiograph is compared to study dated 06/23/2017 and correlated with chest CT dated 06/10/2017. The examination is degraded by portable technique and patient rotation. The heart is enlarged. The pulmonary vasculature is noncongested. There is chronic elevation of the left hemidiaphragm and bibasilar atelectasis. No airspace consolidation is seen typical for pneumonia and there is no large pleural effusion. No pneumothorax is seen. The skeletal structures are osteopenic. The bony thorax is grossly intact. IMPRESSION: Cardiomegaly and bibasilar atelectasis. There is no acute cardiopulmonary abnormality. Electronically signed by: Harvey Bunch M.D. 07/07/2017 6:38 PM Dictated Date/Time: 07/07/2017 6:37 PM RIGHT ANKLE 3 VIEWS CLINICAL HISTORY: Right ankle pain. FINDINGS: 3 views of the right ankle are compared to study dated 12/07/2016. The skeletal structures are osteopenic. No fracture is seen. The ankle mortise is intact. Degenerative spurring is seen along the dorsal aspect of the tarsal bones. No large joint effusion is identified. Soft tissue swelling is present around the ankle. IMPRESSION: 1. Soft tissue swelling with no radiographic evidence of right ankle fracture. 2. Osteopenia and arthritic change as above. Electronically signed by: Harvey Bunch M.D. 07/07/2017 6:35 PM Dictated Date/Time: 07/07/2017 6:34 PM Laboratory Results 07/07/17 17:43 Red Blood Count 3.70, Mean Corpuscular Volume 93.8, Mean Corpuscular Hemoglobin 30.8, Mean Corpuscular Hemoglobin Concent 32.9, Mean Platelet Volume 8.8, Neutrophils (%) (Auto) 75.8, Lymphocytes (%) (Auto) 10.2, Monocytes (%) (Auto) 12.4, Eosinophils (%) (Auto) 0.6, Basophils (%) (Auto) 0.3, Neutrophils # (Auto ) 13.18, Lymphocytes # (Auto) 1.78, Monocytes # (Auto) 2.16, Eosinophils # (Auto ) 0.11, Basophils # (Auto) 0.05 07/07/17 17:43 Test 07/07/17 17:43 07/07/17 17:54 07/07/17 17:57 07/07/17 18:30 White Blood Count 17.40 K/uL (4.8-10.8) Red Blood Count 3.70 M/uL (4.7-6.1) Hemoglobin 11.4 g/dL (14.0-18.0) Hematocrit 34.7 % (42-52) Mean Corpuscular Volume 93.8 fL (80-100) Mean Corpuscular Hemoglobin 30.8 pg (25-34) Mean Corpuscular Hemoglobin Concent 32.9 g/dl (32-36) Platelet Count 418 K/uL (130-400) Mean Platelet Volume 8.8 fL (7.4-10.4) Neutrophils (%) (Auto) 75.8 % Lymphocytes (%) (Auto) 10.2 % Monocytes (%) (Auto) 12.4 % Eosinophils (%) (Auto) 0.6 % Basophils (%) (Auto) 0.3 % Neutrophils # (Auto) 13.18 K/uL (1.4-6.5) Lymphocytes # (Auto) 1.78 K/uL (1.2-3.4) Monocytes # (Auto) 2.16 K/uL (0.11-0.59) Eosinophils # (Auto) 0.11 K/uL (0-0.5) Basophils # (Auto) 0.05 K/uL (0-0.2) RDW Standard Deviation 51.2 fL (36.4-46.3) RDW Coefficient of Variation 15.2 % (11.5-14.5) Immature Granulocyte % (Auto) 0.7 % Immature Granulocyte # (Auto) 0.12 K/uL (0.00-0.02) Prothrombin Time 19.4 SECONDS (9.0-12.0) Prothromb Time International Ratio 1.8 (0.9-1.1) Estimated GFR () 59.8 Estimated GFR (Non- 51.6 BUN/Creatinine Ratio 13.4 (10-20) Calcium Level 8.8 mg/dl (8.5-10.1) Magnesium Level 1.7 mg/dl (1.8-2.4) Total Bilirubin 1.2 mg/dl (0.2-1) Direct Bilirubin 0.3 mg/dl (0-0.2) Aspartate Amino Transf (AST/SGOT) 44 U/L (15-37) Alanine Aminotransferase (ALT/SGPT) 31 U/L (12-78) Alkaline Phosphatase 157 U/L (45-117) Total Creatine Kinase 21 U/L (39-308) Creatine Kinase MB < 0.5 ng/ml (0.5-3.6) Creatine Kinase MB Ratio (0-3.0) Troponin I < 0.015 ng/ml (0-0.045) Total Protein 8.0 gm/dl (6.4-8.2) Albumin 3.1 gm/dl (3.4-5.0) Prostate Specific Antigen 12.100 ng/ml (0.000-4.000) Bedside Lactic Acid Venous 1.07 mmol/L (0.90-1.70) Bedside Hemoglobin 12.2 g/dl (14.0-18.0) Bedside Hematocrit 36 % (42-52) Bedside Sodium 135 mEq/L (135-144) Bedside Potassium 4.3 mEq/L (3.3-5.0) Bedside Chloride 98 mEq/L (101-112) Bedside Total CO2 27 mEq/l (24-31) Anion Gap 15.0 mmol/L (16-25) Bedside Blood Urea Nitrogen 18 mg/dl (7-18) Bedside Creatinine 1.3 mg/dl (0.6-1.3) Bedside Glucose (other) 117 mg/dl (70-99) Bedside Ionized Calcium (Vlad) 1.10 mmol/l (1.12-1.32) Urine Color YELLOW Urine Appearance CLEAR (CLEAR) Urine pH 6.5 (4.5-7.5) Urine Specific [place] 1.020 (1.000-1.030) Urine Protein TRACE (NEG) Urine Glucose (UA) NEG (NEG) Urine Ketones NEG (NEG) Urine Occult Blood 2+ (NEG) Urine Nitrite NEG (NEG) Urine Bilirubin NEG (NEG) Urine Urobilinogen NEG (NEG) Urine Leukocyte Esterase TRACE (NEG) Urine WBC (Auto) 1-5 /hpf (0-5) Urine RBC (Auto) 5-10 /hpf (0-4) Urine Hyaline Casts (Auto) 1-5 /lpf (0-5) Urine Epithelial Cells (Auto) 10-20 /lpf (0-5) Urine Bacteria (Auto) NEG (NEG) Laboratory results per my review. Medications Administered Medications (Trade) Dose Ordered Sig/Gege Route Start Time Stop Time Status Last Admin Dose Admin Sodium Chloride 1,000 ml @ 999 mls/hr Q1H1M STAT IV 07/07/17 17:26 07/07/17 18:26 DC 07/07/17 18:00 999 MLS/HR Piperacillin Sod/ Tazobactam Sod (Zosyn Iv) 4.5 gm NOW STAT IV 07/07/17 17:26 07/07/17 17:29 DC 07/07/17 17:59 4.5 GM Vancomycin HCl 2000 mg/Sodium Chloride 540 ml @ 200 mls/hr ONE ONCE IV 07/07/17 19:00 07/07/17 21:41 DC 07/07/17 19:06 200 MLS/HR Sodium Chloride 1,000 ml @ 100 mls/hr Q10H IV 07/07/17 20:00 07/08/17 15:59 07/07/17 21:41 100 MLS/HR ECG Indication: tachycardia Rate (beats per minute): 116 Rhythm: sinus tachycardia Findings: nonspecific-ST abn, PVC, left axis deviation ED Course ED COURSE: Vital signs were reviewed and showed tachycardia The patients medical record was reviewed The above diagnostic studies were performed and reviewed. ED treatments and interventions as stated above. 1712: The patient was evaluated in room B11B. A complete history and physical examination was performed. 1726: Ordered Zosyn Iv 4.5gm IV, Sodium Chloride 1000 ml @ 999 mls/hr IV 1900: Ordered Vancomycin HCl 2000mg/Sodium Chloride 540ml @ 200mls/hr IV 1910: Upon reevaluation, the patient is resting. I discussed my findings with the patient and he understands and agrees with the treatment plan. 1917: I discussed the patient's case with Dr. Merida [facility] Hospitalist. The patient will be evaluated for further management and care. Based on the patients age, coexisting illnesses, exam and lab findings the decision to treat as an inpatient was made. The patient remained stable while under my care. The patient will be evaluated for further management. Medical Decision Differential diagnosis includes etiologies such as sepsis, UTI, pneumonia, metabolic, electrolyte abnormalities, cardiac sources, intracerebral event, toxicologic, neurologic, as well as others were entertained. Patient is a 66-year-old male who presents to ER referred in by PCP for a leukocytosis and fevers at home. Upon presentation is a white count 17.4 thousand. Low-grade fever. He was recently admitted and discharged for sepsis secondary to UTI. BMP was unremarkable. Slight elevation bilirubin. INR was 1.8. UA was unremarkable. Right ankle has significant swelling with erythema. Range of motion of ankle is intact. Do not think that this is a septic joint at this time. Mild erythema of the left first and third digit. Do question if this could be endocarditis for the recent her switch her UTI. Patient was given broad-spectrum antibiotics. He was admitted to internal medicine for further workup. Medication Reconcilliation Current Medication List: was personally reviewed by me Blood Pressure Screening Patient's blood pressure: Normal blood pressure Blood pressure disposition: Did not require urgent referral Consults Time Called: 1910 Consulting Physician: Dr. Merida [facility] Hospitalist Returned Call: 1917 I discussed the patient's case with Dr. Merida [facility] Hospitalist. The patient will be evaluated for further management and care. Impression Primary Impression: Sepsis Additional Impression: Cellulitis Scribe Attestation The scribe's documentation has been prepared under my direction and personally reviewed by me in its entirety. I confirm that the note above accurately reflects all work, treatment, procedures, and medical decision making performed by me. Departure Information Dispostion Being Evaluated By Hospitalist Referrals No Doctor, Assigned (PCP) Patient Instructions [facility] Problem Qualifiers Primary Impression: Sepsis Sepsis type: sepsis due to unspecified organism Qualified Codes: A41.9 - Sepsis, unspecified organism Additional Impression: Cellulitis Site of cellulitis: unspecified site Qualified Codes: L03.90 - Cellulitis, unspecified
[2017-07-08] MEDS: IMIPENEM/CILASTATIN IV 500 MG in D5W 100ML IV SCH ×4 (03:31→22:05)
[2017-07-08 04:00] VITALS: BP 104/64; PULSE 77; TEMP 36.5; O2SAT 93
[2017-07-08] MEDS ORDERED: VANCOMYCIN INJ 1,750 MG in SODIUM CHLORIDE 0.9% 500ML 500 ML IV SCH (04:00)
[2017-07-08 05:56] LABS: HEMATOCRIT 32.3 % (42-52); MEAN CELL VOLUME 93.1 fL (80-100); MEAN CORPUSCULAR HGB CONC 32.2 g/dl (32-36); MEAN PLATELET VOLUME 8.7 fL (7.4-10.4); PLATELET COUNT 377 K/uL (130-400); RED BLOOD COUNT 3.47 M/uL (4.7-6.1); WHITE BLOOD COUNT 11.07 K/uL (4.8-10.8)
[2017-07-08] MEDS: SODIUM CHLORIDE 0.9% 1000ML 1,000 ML IV SCH (06:00)
[2017-07-08 06:41] LABS: BUN/CREATININE RATIO 13.7 (10-20); CREATININE 1.1 mg/dl (0.60-1.40); MAGNESIUM 2.1 mg/dl (1.8-2.4); POTASSIUM 4.4 mmol/L (3.5-5.1)
[2017-07-08 07:31] VITALS: BP 111/72; PULSE 83; TEMP 36.9; O2SAT 92
[2017-07-08] MEDS: DOCUSATE SODIUM 100 MG CAP PO SCH ×2 (08:23→20:50)
[2017-07-08] MEDS: METOPROLOL SUCC 25MG EXT REL TAB PO SCH ×2 (08:24→20:50)
[2017-07-08] MEDS: ALLOPURINOL 100 MG TAB PO SCH (08:24)
[2017-07-08] MEDS: CYANOCOBALAMIN 500 MCG TAB (VIT B-12) PO SCH (08:24)
[2017-07-08] MEDS: FERROUS SULFATE 325 MG TAB PO SCH ×2 (08:25→15:54)
[2017-07-08] MEDS: COLCHICINE 0.6 MG TAB PO SCH (08:25)
--- NOTE | 2017-07-08 09:07 | Pharmacy Progress Note ---
Pharmacy Abx Initial Consult Date of Service Jul 08, 2017. Pharmacy Dosing Scope Date of Consult: 07/07/17 Consultation requested by: Dr. Merida Pharmacy is consulted to initiate Vancomycin and Primaxin IV dosing therapy, order appropriate labs and adjust drug dose/frequency. Subjective The patient is a 66 year old male admitted on Jul 07, 2017 at 20:04. Objective Height (Feet): 6 Height (Inches): 4.00 Weight (Kilograms): 113.100 Vital Signs (Past 12Hrs) Vital Signs Past 12 Hours Date Time Temp Pulse Resp B/P (MAP) Pulse Ox O2 Delivery O2 Flow Rate FiO2 07/08/17 07:31 36.9 83 18 111/72 (85) 92 Room Air 07/08/17 04:00 36.5 77 20 104/64 (77) 93 Room Air 07/07/17 23:45 37.0 101 20 96/60 (72) 94 Room Air 07/07/17 21:16 37.2 101 18 124/78 (93) 94 Room Air Lab Results (24Hrs) Laboratory Tests (24 Hours) Test 07/07/17 17:43 07/08/17 05:34 White Blood Count 17.40 K/uL (4.8-10.8) H 11.07 K/uL (4.8-10.8) H Red Blood Count 3.70 M/uL (4.7-6.1) L Hemoglobin 11.4 g/dL (14.0-18.0) L Hematocrit 34.7 % (42-52) L Mean Corpuscular Volume 93.8 fL (80-100) Mean Corpuscular Hemoglobin 30.8 pg (25-34) Mean Corpuscular Hemoglobin Concent 32.9 g/dl (32-36) Platelet Count 418 K/uL (130-400) H Mean Platelet Volume 8.8 fL (7.4-10.4) Neutrophils (%) (Auto) 75.8 % Lymphocytes (%) (Auto) 10.2 % Monocytes (%) (Auto) 12.4 % Eosinophils (%) (Auto) 0.6 % Basophils (%) (Auto) 0.3 % Neutrophils # (Auto) 13.18 K/uL (1.4-6.5) H Lymphocytes # (Auto) 1.78 K/uL (1.2-3.4) Monocytes # (Auto) 2.16 K/uL (0.11-0.59) H Eosinophils # (Auto) 0.11 K/uL (0-0.5) Basophils # (Auto) 0.05 K/uL (0-0.2) Total Creatine Kinase 21 U/L (39-308) L Micro Results Date/Time Source Procedure Growth Status 07/07/17 17:43 Blood Blood Culture Pending Received 07/07/17 17:42 Blood Blood Culture Pending Received Risk Factors for Resistance * Hospitalization for 48 hours or more within the past 90 days * History of infection with a multidrug-resistant organism: ESBL (urine, ); BC x 1 on 06/23/17 --> did not state ESBL on results * Antimicrobial use within the last 90 days: Cipro (po), Vanc, Zosyn Assessment & Plan Assessment 66 year old male on empiric IV Vancomycin and Primaxin for L ankle swelling vs UTI vs prostatitis. He recently was admitted 06/23/17 with urosepsis. Urine and blood cultures grew ESBL; patient was never prescribed a carbapenem and was actually discharged on Ciprofloxacin (cultures said it was "sensitive"). He is readmitted with fever, elevated WBC's. Previous infection appears to not have been appropriately treated. * Patient received Vancomycin 2000mg (~17mg/kg) IV x 1 in the ED as a loading dose. This is lower than usual, therefore maintenance regimen started earlier to make up for lower LD. * sCr was 1.4 mg/dL upon admission, but has improved to 1.1 mg/dL today. Estimated pharmacokinetic parameters: * Ke ~0.076/hr, T1/2 ~9.1 hrs Plan Vancomycin IV * Maintenance dose: 1750 mg IV (~15 mg/kg) every 12 hours * Goal trough level for cellulitis vs UTI vs prostatitis : ~15 mcg/mL * Trough level ordered for 07/09/17 @ 0330 (prior to 3rd dose and therefore not reflective of steady state) Primaxin * No dosing adjustments needed for CrCl >60 mL/min * Continue Primaxin 500mg IV q6 Pharmacy will continue to follow and will adjust dose/frequency as necessary. Thank you.
--- NOTE | 2017-07-08 11:45 | Progress Note ---
Subjective Date of Service: Jul 08, 2017. Subjective Pt evaluation today including: conversation w/ patient, conversation w/ family , physical exam, chart review, lab review, review of studies, conversation w/ information resource consultant Weaning better in generalized weakness, no more spiking fever, has good urine coming out, denied dysuria, right lateral ankle swelling and red, history of gout Problem List Medical Problems: (1) Anemia Status: Acute (2) Cellulitis Status: Acute (3) Cellulitis of right ankle Status: Acute (4) Dehydration Status: Acute (5) DVT, lower extremity Status: Acute (6) Positive Lyme disease serology Status: Acute (7) UTI (urinary tract infection) Status: Acute (8) Weakness Status: Acute Review of Systems Constitutional: No fever, No chills, No sweats, No weight loss, No weakness, No fatigue, No problem reported Eyes: No worsening of vision, No eye pain, No redness, No discharge, No diplopia ENT: No hearing loss, No unusual epistaxis, No nasal symptoms, No sore throat, No tinnitus, No dental problems, No trouble swallowing Respiratory: No cough, No sputum, No wheezing, No shortness of breath, No dyspnea on exertion, No dyspnea at rest, No hemoptysis Cardiac: No chest pain, No orthopnea, No PND, No edema, No claudication, No palpitations Abdomen: No pain, No nausea, No vomiting, No diarrhea, No constipation Musculoskeletal: No joint pain, No muscle pain, No swelling, No calf pain Male : No dysuria, No urinary frequency, No incontinence, No nocturia more than once/night, No slowing stream, No hematuria Neurologic: No memory loss, No paralysis, No weakness, No numbness/tingling, No vertigo, No balance problems Psychiatric: No depression symptoms, No anhedonism, No anxiety, No insomnia, No substance abuse Heme: No abnormal bleeding/bruising, No clotting problems, No swollen lymph nodes, No night sweats Endo: No fatigue, No excessive thirst, No excessive urination Skin: No rash, No itch, No new/changing skin lesions, No color change, No bleeding Objective Vital Signs Date Time Temp Pulse Resp B/P (MAP) Pulse Ox O2 Delivery O2 Flow Rate FiO2 07/08/17 08:00 Room Air 07/08/17 07:31 36.9 83 18 111/72 (85) 92 Room Air 07/08/17 04:00 36.5 77 20 104/64 (77) 93 Room Air 07/07/17 23:45 37.0 101 20 96/60 (72) 94 Room Air 07/07/17 21:16 37.2 101 18 124/78 (93) 94 Room Air 07/07/17 20:57 109 20 114/81 96 Room Air 07/07/17 19:26 Room Air 07/07/17 19:07 109 20 106/74 97 Room Air 07/07/17 17:08 37.8 126 18 107/66 96 Room Air Physical Exam General Appearance: WD/WN, no apparent distress, + pertinent finding Eyes: normal inspection, PERRL, EOMI, sclerae normal ENT: normal ENT inspection, hearing grossly normal, pharynx normal Neck: supple, no adenopathy, thyroid normal, no JVD, no carotid bruits, trachea midline Respiratory/Chest: chest non-tender, normal breath sounds, no respiratory distress, no accessory muscle use, + decreased breath sounds Cardiovascular: regular rate, rhythm, no edema, no gallop, no JVD, no murmur Abdomen: normal bowel sounds, non tender, soft, no organomegaly, no pulsatile mass Extremities: non-tender, normal inspection, no pedal edema, no calf tenderness , normal capillary refill, pelvis stable, + pertinent finding (right lateral ankle red and swelling, local tender in palpation) Neurologic/Psychiatric: investigator narcotics II-XII nml as tested, no motor/sensory deficits, alert, normal mood/affect, oriented x 3 Skin: normal color, warm/dry, no rash Lymphatic: no adenopathy Laboratory Results Last 24 Hours Test 07/07/17 17:43 07/07/17 17:54 07/07/17 17:57 07/07/17 18:30 White Blood Count 17.40 K/uL Red Blood Count 3.70 M/uL Hemoglobin 11.4 g/dL Hematocrit 34.7 % Mean Corpuscular Volume 93.8 fL Mean Corpuscular Hemoglobin 30.8 pg Mean Corpuscular Hemoglobin Concent 32.9 g/dl Platelet Count 418 K/uL Mean Platelet Volume 8.8 fL Neutrophils (%) (Auto) 75.8 % Lymphocytes (%) (Auto) 10.2 % Monocytes (%) (Auto) 12.4 % Eosinophils (%) (Auto) 0.6 % Basophils (%) (Auto) 0.3 % Neutrophils # (Auto) 13.18 K/uL Lymphocytes # (Auto) 1.78 K/uL Monocytes # (Auto) 2.16 K/uL Eosinophils # (Auto) 0.11 K/uL Basophils # (Auto) 0.05 K/uL RDW Standard Deviation 51.2 fL RDW Coefficient of Variation 15.2 % Immature Granulocyte % (Auto) 0.7 % Immature Granulocyte # (Auto) 0.12 K/uL Prothrombin Time 19.4 SECONDS Prothromb Time International Ratio 1.8 Sodium Level 134 mmol/L Potassium Level 4.2 mmol/L Chloride Level 99 mmol/L Carbon Dioxide Level 28 mmol/L Anion Gap 7.0 mmol/L 15.0 mmol/L Blood Urea Nitrogen 19 mg/dl Creatinine 1.40 mg/dl Estimated GFR () 59.8 Estimated GFR (Non- 51.6 BUN/Creatinine Ratio 13.4 Random Glucose 109 mg/dl Calcium Level 8.8 mg/dl Magnesium Level 1.7 mg/dl Total Bilirubin 1.2 mg/dl Direct Bilirubin 0.3 mg/dl Aspartate Amino Transf (AST/SGOT) 44 U/L Alanine Aminotransferase (ALT/SGPT) 31 U/L Alkaline Phosphatase 157 U/L Total Creatine Kinase 21 U/L Creatine Kinase MB < 0.5 ng/ml Creatine Kinase MB Ratio Troponin I < 0.015 ng/ml Total Protein 8.0 gm/dl Albumin 3.1 gm/dl Prostate Specific Antigen 12.100 ng/ml Bedside Lactic Acid Venous 1.07 mmol/L Bedside Hemoglobin 12.2 g/dl Bedside Hematocrit 36 % Bedside Sodium 135 mEq/L Bedside Potassium 4.3 mEq/L Bedside Chloride 98 mEq/L Bedside Total CO2 27 mEq/l Bedside Blood Urea Nitrogen 18 mg/dl Bedside Creatinine 1.3 mg/dl Bedside Glucose (other) 117 mg/dl Bedside Ionized Calcium (Vlad) 1.10 mmol/l Urine Color YELLOW Urine Appearance CLEAR Urine pH 6.5 Urine Specific [place] 1.020 Urine Protein TRACE Urine Glucose (UA) NEG Urine Ketones NEG Urine Occult Blood 2+ Urine Nitrite NEG Urine Bilirubin NEG Urine Urobilinogen NEG Urine Leukocyte Esterase TRACE Urine WBC (Auto) 1-5 /hpf Urine RBC (Auto) 5-10 /hpf Urine Hyaline Casts (Auto) 1-5 /lpf Urine Epithelial Cells (Auto) 10-20 /lpf Urine Bacteria (Auto) NEG Test 07/08/17 05:34 White Blood Count 11.07 K/uL Red Blood Count 3.47 M/uL Hemoglobin 10.4 g/dL Hematocrit 32.3 % Mean Corpuscular Volume 93.1 fL Mean Corpuscular Hemoglobin 30.0 pg Mean Corpuscular Hemoglobin Concent 32.2 g/dl RDW Standard Deviation 51.5 fL RDW Coefficient of Variation 15.2 % Platelet Count 377 K/uL Mean Platelet Volume 8.7 fL Sodium Level 137 mmol/L Potassium Level 4.4 mmol/L Chloride Level 106 mmol/L Carbon Dioxide Level 24 mmol/L Anion Gap 7.0 mmol/L Blood Urea Nitrogen 15 mg/dl Creatinine 1.10 mg/dl Est Creatinine Clear Calc Drug Dose 91.7 ml/min Estimated GFR () 80.1 Estimated GFR (Non- 69.1 BUN/Creatinine Ratio 13.7 Random Glucose 174 mg/dl Calcium Level 9.0 mg/dl Magnesium Level 2.1 mg/dl Assessment and Plan 66 y/o M admitted possible UTI proctitis and sepsis on 07/07/2017 Hx gout, PAF, iron-deficient anemia, malabsorption syndrome, DVT/PE, L hip replacement 06/11. Per report , Pt was admitted 06/23 with urosepsis and remained hospitalized for 5 days. Cultures proved + for E. coli. He was D/Cd to complete a 2 week course of Cipro. developed pain and inflammation of his R lat ankle in addition to two toes of his L foot approximately 2 days prior. Fever with leukocytosis , possible sepsis , likely from possible sources include L ankle - urine - prostatitis. UTI with prostatitis, with history of Escherichia coli UTI and bacteremia Improves on iv abx of Primaxin, R ankle red swelling, possible gout flaring, or cellulitis, L toes and is consistent with gout despite a normal uric acid We'll continue antibiotics Follow up blood cultures, consult ID and place on broad-spectrum antibiotics, I agreed, he may have prostatitis flare up. cont Colchicine and Allopurinol, cont prednisone Urinary hesitancy, cont IVF and Flomax PAF - currently sinus tach - wearing halter for 1 mo - current tachycardia may be due to underlying infection and fever - will continue daily Coumadin Anemia - Hb appears stable - continue iron Malabsorption - will provide protein supplements, folate, B12, iron as prescribed - pending a GI eval next wk Full code - Coumadin prophylaxis Continued [facility] stay due to: multiple IV medications needed Discharge planning: home
--- NOTE | 2017-07-08 11:56 | Urology Consultation ---
History General Date of Service: Jul 08, 2017. Primary Care Physician: Cristal Joyner M.D. History of Present Illness Patient is a 66-year-old white male admitted to the hospital with fever. We are asked to see the patient because of some difficulty voiding. Patient tells me he's had some voiding troubles for a while now. Voiding habits: Nocturia 3 Stream okay Denies dysuria or hematuria Does have some hesitancy Isn't sure that he empties completely all the time Daytime frequency every 3-4 hours Denies urgency The symptoms are somewhat bothersome He was placed on Flomax yesterday and says he is gotten a very good response to this as his urination is now much better than it had been before he came in He tells me he had a prostate biopsy done elsewhere years ago that was negative Laboratory Date/Time Source Procedure Growth Status 07/07/17 17:43 Blood Blood Culture Pending Received 07/07/17 17:42 Blood Blood Culture Pending Received Last 24 Hours Test 07/07/17 17:43 07/07/17 17:54 07/07/17 17:57 07/07/17 18:30 White Blood Count 17.40 K/uL Red Blood Count 3.70 M/uL Hemoglobin 11.4 g/dL Hematocrit 34.7 % Mean Corpuscular Volume 93.8 fL Mean Corpuscular Hemoglobin 30.8 pg Mean Corpuscular Hemoglobin Concent 32.9 g/dl Platelet Count 418 K/uL Mean Platelet Volume 8.8 fL Neutrophils (%) (Auto) 75.8 % Lymphocytes (%) (Auto) 10.2 % Monocytes (%) (Auto) 12.4 % Eosinophils (%) (Auto) 0.6 % Basophils (%) (Auto) 0.3 % Neutrophils # (Auto) 13.18 K/uL Lymphocytes # (Auto) 1.78 K/uL Monocytes # (Auto) 2.16 K/uL Eosinophils # (Auto) 0.11 K/uL Basophils # (Auto) 0.05 K/uL RDW Standard Deviation 51.2 fL RDW Coefficient of Variation 15.2 % Immature Granulocyte % (Auto) 0.7 % Immature Granulocyte # (Auto) 0.12 K/uL Prothrombin Time 19.4 SECONDS Prothromb Time International Ratio 1.8 Sodium Level 134 mmol/L Potassium Level 4.2 mmol/L Chloride Level 99 mmol/L Carbon Dioxide Level 28 mmol/L Anion Gap 7.0 mmol/L 15.0 mmol/L Blood Urea Nitrogen 19 mg/dl Creatinine 1.40 mg/dl Estimated GFR () 59.8 Estimated GFR (Non- 51.6 BUN/Creatinine Ratio 13.4 Random Glucose 109 mg/dl Calcium Level 8.8 mg/dl Magnesium Level 1.7 mg/dl Total Bilirubin 1.2 mg/dl Direct Bilirubin 0.3 mg/dl Aspartate Amino Transf (AST/SGOT) 44 U/L Alanine Aminotransferase (ALT/SGPT) 31 U/L Alkaline Phosphatase 157 U/L Total Creatine Kinase 21 U/L Creatine Kinase MB < 0.5 ng/ml Creatine Kinase MB Ratio Troponin I < 0.015 ng/ml Total Protein 8.0 gm/dl Albumin 3.1 gm/dl Prostate Specific Antigen 12.100 ng/ml Bedside Lactic Acid Venous 1.07 mmol/L Bedside Hemoglobin 12.2 g/dl Bedside Hematocrit 36 % Bedside Sodium 135 mEq/L Bedside Potassium 4.3 mEq/L Bedside Chloride 98 mEq/L Bedside Total CO2 27 mEq/l Bedside Blood Urea Nitrogen 18 mg/dl Bedside Creatinine 1.3 mg/dl Bedside Glucose (other) 117 mg/dl Bedside Ionized Calcium (Vlad) 1.10 mmol/l Urine Color YELLOW Urine Appearance CLEAR Urine pH 6.5 Urine Specific [place] 1.020 Urine Protein TRACE Urine Glucose (UA) NEG Urine Ketones NEG Urine Occult Blood 2+ Urine Nitrite NEG Urine Bilirubin NEG Urine Urobilinogen NEG Urine Leukocyte Esterase TRACE Urine WBC (Auto) 1-5 /hpf Urine RBC (Auto) 5-10 /hpf Urine Hyaline Casts (Auto) 1-5 /lpf Urine Epithelial Cells (Auto) 10-20 /lpf Urine Bacteria (Auto) NEG Test 07/08/17 05:34 White Blood Count 11.07 K/uL Red Blood Count 3.47 M/uL Hemoglobin 10.4 g/dL Hematocrit 32.3 % Mean Corpuscular Volume 93.1 fL Mean Corpuscular Hemoglobin 30.0 pg Mean Corpuscular Hemoglobin Concent 32.2 g/dl RDW Standard Deviation 51.5 fL RDW Coefficient of Variation 15.2 % Platelet Count 377 K/uL Mean Platelet Volume 8.7 fL Sodium Level 137 mmol/L Potassium Level 4.4 mmol/L Chloride Level 106 mmol/L Carbon Dioxide Level 24 mmol/L Anion Gap 7.0 mmol/L Blood Urea Nitrogen 15 mg/dl Creatinine 1.10 mg/dl Est Creatinine Clear Calc Drug Dose 91.7 ml/min Estimated GFR () 80.1 Estimated GFR (Non- 69.1 BUN/Creatinine Ratio 13.7 Random Glucose 174 mg/dl Calcium Level 9.0 mg/dl Magnesium Level 2.1 mg/dl Labs were reviewed and are within normal limits unless listed below. Labs are available in the chart and at [facility] Problem List Medical Problems: (1) Anemia Status: Acute (2) Cellulitis Status: Acute (3) Cellulitis of right ankle Status: Acute (4) Dehydration Status: Acute (5) DVT, lower extremity Status: Acute (6) Positive Lyme disease serology Status: Acute (7) UTI (urinary tract infection) Status: Acute (8) Weakness Status: Acute Family History Patient reports no known family medical history. Social History Hx Tobacco Use In Past Year?: No Marital status: Housing status: lives with family Occupation status: employed Immunizations History of Influenza Vaccine: N/A History of Tetanus Vaccine?: No History of Pneumococcal: No History of Hepatitis B Vaccine: Unknown History of MDRO No Allergies Coded Allergies: Iron (Verified Adverse Reaction, Unknown, TACHYCARDIA, 07/07/17) IV iron only, can take iron tablets Medications Home Medications: Home Meds and Scripts Medications Dose Route/Sig Max Daily Dose Days Date Category Dose Instructions Vitamin B12 (Cyanocobalamin) 1,000 Mcg Tab 2,000 Mcg PO DAILY 07/07/17 Reported Ferrous Sulfate 325 Mg Tab 325 Mg PO BIDM 07/07/17 Reported Folvite (Folic Acid) 1 Mg Tab 1 Mg PO QAM 07/07/17 Reported Oxycodone HCl 5 Mg Tab 5 Mg PO Q6H PRN 07/07/17 Reported Metoprolol Succinate ER (Metoprolol Succinate) 25 Mg Tabcr 25 Mg PO BID 07/07/17 Reported Warfarin Sodium 5 Mg Tab 10 Mg PO [id number] 07/07/17 Reported TAKE 10 MG EVERY MONDAY AND MONDAY OR OTHERWISE DIRECTED TO TAKE BY ANTICOAGULATION CLINIC/ Warfarin Sodium 5 Mg Tab 7.5 Mg PO [id number] 07/07/17 Reported TAKE 7.5 MG EVERY MONDAY,MONDAY,MONDAY,MONDAY AND MONDAY OR OTHERWISE DIRECTED TO TAKE BY ANTICOAGULATION CLINIC/ Colace (Docusate Sodium) 100 Mg Cap 100 Mg PO BID 06/23/17 Reported Colchicine 0.6 Mg Tab 0.6 Mg PO QAM 05/19/17 Reported Zyloprim (Allopurinol) 100 Mg Tab 100 Mg PO QAM 02/15/17 Reported Neurontin (Gabapentin) 100 Mg Cap 100 Mg PO HS 01/22/16 Reported Inpatient Medications: Current Inpatient Medications Medications (Trade) Dose Ordered Sig/Gege Route Start Time Stop Time Status Last Admin Dose Admin Sodium Chloride 1,000 ml @ 100 mls/hr Q10H IV 07/07/17 20:00 07/08/17 15:59 07/08/17 06:00 100 MLS/HR Allopurinol (Zyloprim Tab) 100 mg QAM PO 07/08/17 09:00 08/07/17 08:59 07/08/17 08:24 100 MG Colchicine (Colchicine Tab) 0.6 mg QAM PO 07/08/17 09:00 08/07/17 08:59 07/08/17 08:25 0.6 MG Docusate Sodium (coLACE CAP) 100 mg BID PO 07/07/17 21:00 08/06/17 20:59 07/08/17 08:23 100 MG Ferrous Sulfate (Feosol Tab) 325 mg BIDM PO 07/08/17 08:00 08/07/17 07:59 07/08/17 08:25 325 MG Folic Acid (Folvite Tab) 1 mg QAM PO 07/08/17 09:00 08/07/17 08:59 07/08/17 08:23 1 MG Gabapentin (Neurontin Cap) 100 mg HS PO 07/07/17 21:00 08/06/17 20:59 07/07/17 22:15 100 MG Metoprolol Succinate (Toprol Xl Tab) 25 mg BID PO 07/07/17 21:00 08/06/17 20:59 07/08/17 08:24 25 MG Warfarin Sodium (Coumadin Tab) 10 mg DAILY@1600 PO 07/08/17 16:00 08/07/17 15:59 07/07/17 22:31 10 MG Cyanocobalamin (Vitamin B-12 Tab) 2,000 mcg DAILY PO 07/08/17 09:00 08/07/17 08:59 07/08/17 08:24 2,000 MCG Acetaminophen (Tylenol Tab) 650 mg Q4H PRN PO 07/07/17 20:15 08/06/17 20:14 Al Hydrox/Mg Hydrox/Simethicone (Maalox Max Susp) 15 ml Q4H PRN PO 07/07/17 20:15 08/06/17 20:14 Magnesium Hydroxide (Milk Of Magnesia Susp) 30 ml Q6H PRN PO 07/07/17 20:15 08/06/17 20:14 Polyethylene (Miralax Powder Packet) 17 gm DAILY PRN PO 07/07/17 20:15 08/06/17 20:14 Zolpidem Tartrate (Ambien Tab) 5 mg HSZ PRN PO 07/07/17 20:15 08/06/17 20:14 Ondansetron HCl (Zofran Inj) 4 mg Q6H PRN IV 07/07/17 20:15 08/06/17 20:14 Oxycodone/ Acetaminophen (Percocet 10-325MG Tab) 1 tab Q4H PRN PO 07/07/17 20:15 07/21/17 20:14 Imipenem/ Cilastatin Sodium 500 mg/Dextrose 110 ml @ 110 mls/hr Q6H IV 07/07/17 22:00 07/17/17 21:59 07/08/17 10:10 110 MLS/HR Imipenem/ Cilastatin Sodium (Consult) 1 ea UD PRN N/A 07/07/17 22:30 08/06/17 22:29 Vancomycin HCl (Consult) 1 ea UD PRN N/A 07/07/17 22:30 08/06/17 22:29 Vancomycin HCl 1750 mg/Sodium Chloride 535 ml @ 200 mls/hr Q12H IV 07/08/17 16:00 07/17/17 15:59 Prednisone (PredniSONE TAB) 40 mg BID PO 07/08/17 12:00 08/07/17 11:59 Review of Systems Review of Systems Additional Comments: The of systems was reviewed from his admission history and physical Physical Exam Vital Signs: Vital Signs Past 12 Hours Date Time Temp Pulse Resp B/P (MAP) Pulse Ox O2 Delivery O2 Flow Rate FiO2 07/08/17 08:00 Room Air 07/08/17 07:31 36.9 83 18 111/72 (85) 92 Room Air 07/08/17 04:00 36.5 77 20 104/64 (77) 93 Room Air Physical Exam: General Appearance: WD/WN, no apparent distress Eyes: bilateral eyes normal inspection ENT: hearing grossly normal Neck: supple Respiratory/Chest: lungs clear, normal breath sounds, no respiratory distress, no accessory muscle use Cardiovascular: regular rate, rhythm Gastrointestinal: Abdomen: normal abdomen Genitourinary - Male: Penis: normal penis Urethral Meatus: normal urethral meatus Testes: normal testes Epididymides: normal epididymides Scrotum: normal scrotum Anus / Perineum: normal anus/perineum Sphincter Tone: normal sphincter tone Prostate: normal prostate, size (40-45 gram) Seminal Vesicles: normal seminal vesicles Assessment & Plan Assessment & Plan Assessment #1 lower urinary tract symptoms secondary to benign prostatic hypertrophy Patient doing well on Flomax would continue Check a postvoid residual
[2017-07-08] MEDS ORDERED: INFLUENZA VACCINE HIGH DOSE 65+ 0.5 ML SYR IM. ONE (14:15)
[2017-07-08] MEDS ORDERED: INFLUENZA ADMINISTRATION CHARGE ONE (14:15)
[2017-07-08 15:17] VITALS: BP 121/80; PULSE 92; TEMP 36.8; O2SAT 95
[2017-07-08] MEDS: VANCOMYCIN INJ 1,750 MG in SODIUM CHLORIDE 0.9% 500ML 500 ML IV SCH (15:52)
[2017-07-08] MEDS: WARFARIN SOD 10 MG TAB PO SCH (15:53)
--- NOTE | 2017-07-08 16:49 | Medical Consult ---
Consultation Date of Consultation: Jul 08, 2017. Attending Physician: Macrelo Batres MD, PhD Reason for Consultation: Persistent fever, recent UTI treated History of Present Illness 66-year-old male with history of recent left hip replacement, who was admitted several weeks ago with sepsis with urinary tract infection with E coli, treated with 2 week course of oral ciprofloxacin with improvement. Was doing well until 2-3 days prior to admission when he noted onset of right ankle swelling and erythema consistent with previous gouty attacks. He then developed fever and rigors which persisted, with some pain, swelling, erythema of his left great toe. he came to the emergency department, found to have significant leukocytosis, and started empirically on vancomycin and imipenem. Urinalysis without significant pyuria. Uric acid was normal. Cultures are negative to date. Patient feeling significantly better today, no further rigors, has been afebrile. Of note, patient has mild increase in liver enzymes and bilirubin. Denies any right upper quadrant pain. he has had some difficulty with urination , some discolored urine, but urination improved with addition of Flomax on admission. Past Medical/Surgical History Medical Problems: (1) Anemia Status: Acute (2) Cellulitis Status: Acute (3) Cellulitis of right ankle Status: Acute (4) Dehydration Status: Acute (5) DVT, lower extremity Status: Acute (6) Positive Lyme disease serology Status: Acute (7) UTI (urinary tract infection) Status: Acute (8) Weakness Status: Acute Medical Problems: (1) B12 deficiency (2) Fever (3) Folate deficiency (4) Iron (Fe) deficiency anemia (5) Left Hip DJD (6) LLE DVT, hypoxia (7) Sepsis (8) svt (9) Weakness Family History Patient reports no known family medical history. Social History Smoking Status: Never Smoker Drug Use: none Marital Status: Housing Status: lives with family Occupation Status: employed Allergies Coded Allergies: Iron (Verified Adverse Reaction, Unknown, TACHYCARDIA, 07/07/17) IV iron only, can take iron tablets Current Inpatient Medications Current Inpatient Medications Medications (Trade) Dose Ordered Sig/Gege Route Start Time Stop Time Status Last Admin Dose Admin Allopurinol (Zyloprim Tab) 100 mg QAM PO 07/08/17 09:00 08/07/17 08:59 07/08/17 08:24 100 MG Colchicine (Colchicine Tab) 0.6 mg QAM PO 07/08/17 09:00 08/07/17 08:59 07/08/17 08:25 0.6 MG Docusate Sodium (coLACE CAP) 100 mg BID PO 07/07/17 21:00 08/06/17 20:59 07/08/17 08:23 100 MG Ferrous Sulfate (Feosol Tab) 325 mg BIDM PO 07/08/17 08:00 08/07/17 07:59 07/08/17 15:54 325 MG Folic Acid (Folvite Tab) 1 mg QAM PO 07/08/17 09:00 08/07/17 08:59 07/08/17 08:23 1 MG Gabapentin (Neurontin Cap) 100 mg HS PO 07/07/17 21:00 08/06/17 20:59 07/07/17 22:15 100 MG Metoprolol Succinate (Toprol Xl Tab) 25 mg BID PO 07/07/17 21:00 08/06/17 20:59 07/08/17 08:24 25 MG Warfarin Sodium (Coumadin Tab) 10 mg DAILY@1600 PO 07/08/17 16:00 08/07/17 15:59 07/08/17 15:53 10 MG Cyanocobalamin (Vitamin B-12 Tab) 2,000 mcg DAILY PO 07/08/17 09:00 08/07/17 08:59 07/08/17 08:24 2,000 MCG Acetaminophen (Tylenol Tab) 650 mg Q4H PRN PO 07/07/17 20:15 08/06/17 20:14 Al Hydrox/Mg Hydrox/Simethicone (Maalox Max Susp) 15 ml Q4H PRN PO 07/07/17 20:15 08/06/17 20:14 Magnesium Hydroxide (Milk Of Magnesia Susp) 30 ml Q6H PRN PO 07/07/17 20:15 08/06/17 20:14 Polyethylene (Miralax Powder Packet) 17 gm DAILY PRN PO 07/07/17 20:15 08/06/17 20:14 Zolpidem Tartrate (Ambien Tab) 5 mg HSZ PRN PO 07/07/17 20:15 08/06/17 20:14 Ondansetron HCl (Zofran Inj) 4 mg Q6H PRN IV 07/07/17 20:15 08/06/17 20:14 Oxycodone/ Acetaminophen (Percocet 10-325MG Tab) 1 tab Q4H PRN PO 07/07/17 20:15 07/21/17 20:14 Imipenem/ Cilastatin Sodium 500 mg/Dextrose 110 ml @ 110 mls/hr Q6H IV 07/07/17 22:00 07/17/17 21:59 07/08/17 15:52 110 MLS/HR Imipenem/ Cilastatin Sodium (Consult) 1 ea UD PRN N/A 07/07/17 22:30 08/06/17 22:29 Vancomycin HCl (Consult) 1 ea UD PRN N/A 07/07/17 22:30 08/06/17 22:29 Vancomycin HCl 1750 mg/Sodium Chloride 535 ml @ 200 mls/hr Q12H IV 07/08/17 16:00 07/17/17 15:59 07/08/17 15:52 200 MLS/HR Prednisone (PredniSONE TAB) 40 mg BID PO 07/08/17 12:00 08/07/17 11:59 07/08/17 12:57 40 MG Review of Systems All systems were reviewed and are negative except as per HPI Physical Exam Date Time Temp Pulse Resp B/P (MAP) Pulse Ox O2 Delivery O2 Flow Rate FiO2 07/08/17 16:00 Room Air 07/08/17 15:17 36.8 92 18 121/80 (94) 95 Room Air 07/08/17 08:00 Room Air 07/08/17 07:31 36.9 83 18 111/72 (85) 92 Room Air 07/08/17 04:00 36.5 77 20 104/64 (77) 93 Room Air 07/07/17 23:45 37.0 101 20 96/60 (72) 94 Room Air 07/07/17 21:16 37.2 101 18 124/78 (93) 94 Room Air 07/07/17 20:57 109 20 114/81 96 Room Air 07/07/17 19:26 Room Air 07/07/17 19:07 109 20 106/74 97 Room Air 07/07/17 17:08 37.8 126 18 107/66 96 Room Air General Appearance: WD/WN, no apparent distress Head: normocephalic, atraumatic Eyes: normal inspection, EOMI, sclerae normal ENT: normal ENT inspection, hearing grossly normal, pharynx normal Neck: supple, no adenopathy, thyroid normal, trachea midline Respiratory/Chest: chest non-tender, lungs clear, normal breath sounds, no respiratory distress ( .) Cardiovascular: regular rate, rhythm, no gallop, no murmur Abdomen/GI: normal bowel sounds, non tender, soft, no organomegaly Back: normal inspection, no CVA tenderness Extremities/Musculoskelatal: no calf tenderness, non-tender Neurologic/Psych: no motor/sensory deficits, alert, normal mood/affect, oriented x 3 Skin: normal color, warm/dry, no rash Lymphatic: no adenopathy Laboratory Results Date/Time Source Procedure Growth Status 07/07/17 17:43 Blood Blood Culture Pending Received 07/07/17 17:42 Blood Blood Culture Pending Received Last 24 Hours Test 07/07/17 17:43 07/07/17 17:54 07/07/17 17:57 07/07/17 18:30 White Blood Count 17.40 K/uL Red Blood Count 3.70 M/uL Hemoglobin 11.4 g/dL Hematocrit 34.7 % Mean Corpuscular Volume 93.8 fL Mean Corpuscular Hemoglobin 30.8 pg Mean Corpuscular Hemoglobin Concent 32.9 g/dl Platelet Count 418 K/uL Mean Platelet Volume 8.8 fL Neutrophils (%) (Auto) 75.8 % Lymphocytes (%) (Auto) 10.2 % Monocytes (%) (Auto) 12.4 % Eosinophils (%) (Auto) 0.6 % Basophils (%) (Auto) 0.3 % Neutrophils # (Auto) 13.18 K/uL Lymphocytes # (Auto) 1.78 K/uL Monocytes # (Auto) 2.16 K/uL Eosinophils # (Auto) 0.11 K/uL Basophils # (Auto) 0.05 K/uL RDW Standard Deviation 51.2 fL RDW Coefficient of Variation 15.2 % Immature Granulocyte % (Auto) 0.7 % Immature Granulocyte # (Auto) 0.12 K/uL Prothrombin Time 19.4 SECONDS Prothromb Time International Ratio 1.8 Sodium Level 134 mmol/L Potassium Level 4.2 mmol/L Chloride Level 99 mmol/L Carbon Dioxide Level 28 mmol/L Anion Gap 7.0 mmol/L 15.0 mmol/L Blood Urea Nitrogen 19 mg/dl Creatinine 1.40 mg/dl Estimated GFR () 59.8 Estimated GFR (Non- 51.6 BUN/Creatinine Ratio 13.4 Random Glucose 109 mg/dl Calcium Level 8.8 mg/dl Magnesium Level 1.7 mg/dl Total Bilirubin 1.2 mg/dl Direct Bilirubin 0.3 mg/dl Aspartate Amino Transf (AST/SGOT) 44 U/L Alanine Aminotransferase (ALT/SGPT) 31 U/L Alkaline Phosphatase 157 U/L Total Creatine Kinase 21 U/L Creatine Kinase MB < 0.5 ng/ml Creatine Kinase MB Ratio Troponin I < 0.015 ng/ml Total Protein 8.0 gm/dl Albumin 3.1 gm/dl Prostate Specific Antigen 12.100 ng/ml Bedside Lactic Acid Venous 1.07 mmol/L Bedside Hemoglobin 12.2 g/dl Bedside Hematocrit 36 % Bedside Sodium 135 mEq/L Bedside Potassium 4.3 mEq/L Bedside Chloride 98 mEq/L Bedside Total CO2 27 mEq/l Bedside Blood Urea Nitrogen 18 mg/dl Bedside Creatinine 1.3 mg/dl Bedside Glucose (other) 117 mg/dl Bedside Ionized Calcium (Vlad) 1.10 mmol/l Urine Color YELLOW Urine Appearance CLEAR Urine pH 6.5 Urine Specific Allred 1.020 Urine Protein TRACE Urine Glucose (UA) NEG Urine Ketones NEG Urine Occult Blood 2+ Urine Nitrite NEG Urine Bilirubin NEG Urine Urobilinogen NEG Urine Leukocyte Esterase TRACE Urine WBC (Auto) 1-5 /hpf Urine RBC (Auto) 5-10 /hpf Urine Hyaline Casts (Auto) 1-5 /lpf Urine Epithelial Cells (Auto) 10-20 /lpf Urine Bacteria (Auto) NEG Test 07/08/17 05:34 White Blood Count 11.07 K/uL Red Blood Count 3.47 M/uL Hemoglobin 10.4 g/dL Hematocrit 32.3 % Mean Corpuscular Volume 93.1 fL Mean Corpuscular Hemoglobin 30.0 pg Mean Corpuscular Hemoglobin Concent 32.2 g/dl RDW Standard Deviation 51.5 fL RDW Coefficient of Variation 15.2 % Platelet Count 377 K/uL Mean Platelet Volume 8.7 fL Sodium Level 137 mmol/L Potassium Level 4.4 mmol/L Chloride Level 106 mmol/L Carbon Dioxide Level 24 mmol/L Anion Gap 7.0 mmol/L Blood Urea Nitrogen 15 mg/dl Creatinine 1.10 mg/dl Est Creatinine Clear Calc Drug Dose 91.7 ml/min Estimated GFR () 80.1 Estimated GFR (Non- 69.1 BUN/Creatinine Ratio 13.7 Random Glucose 174 mg/dl Calcium Level 9.0 mg/dl Magnesium Level 2.1 mg/dl RIGHT ANKLE 3 VIEWS CLINICAL HISTORY: Right ankle pain. FINDINGS: 3 views of the right ankle are compared to study dated 12/07/2016. The skeletal structures are osteopenic. No fracture is seen. The ankle mortise is intact. Degenerative spurring is seen along the dorsal aspect of the tarsal bones. No large joint effusion is identified. Soft tissue swelling is present around the ankle. IMPRESSION: 1. Soft tissue swelling with no radiographic evidence of right ankle fracture. 2. Osteopenia and arthritic change as above. Electronically signed by: Harvey Bunch M.D. 07/07/2017 6:35 PM Dictated Date/Time: 07/07/2017 6:34 PM The status of this report is Signed. Draft = Not yet reviewed or approved by Radiologist. Signed = Reviewed and approved by Radiologist. <AttendingPhy></AttendingPhy> <FamilyPhy>Cristal Joyner M.D.</FamilyPhy> < PrimaryPhy>Cristal Joyner M.D.</PrimaryPhy> <UnitNumber>[id number]</ UnitNumber> <VisitNumber>[id number]</VisitNumber> <PatientName>SHARYN SALEH JR</PatientName> <DateOfBirth>1950</DateOfBirth> <Location>[facility]</ Location> <ServiceDate>07/07/17</ServiceDate> <MNE>ESINDI</MNE> <OrderingPhy> Fazal Hancock DO</OrderingPhy> <OrderingPhyMNE>f rep ord dr puckett</OrderingPhyMNE > <DictatingPhyMNE>f rep dict dr puckett</DictatingPhyMNE> <CCListMNE>f rep ct mne Assessment & Plan 66-year-old male with recent hip replacement, hospitalization for E coli sepsis associated with possible urinary tract infection, now with recurrent fevers. Certainly chronic prostatitis is potential etiology, and should be covered by current antibiotic therapy. Because of mild increase in liver enzymes and bilirubin, would obtain right upper quadrant sonogram to rule out possibility of occult cholecystitis. Also there is potential for possible bacteremia with seeding of ankle in toe, so will await blood culture results. Patient appears to be responding well to current antibiotic therapy will continue for now. Will follow.
[2017-07-08] MEDS: GABAPENTIN 100 MG CAP PO SCH (20:50)
[2017-07-08 22:48] VITALS: BP 115/75; PULSE 87; TEMP 36.9; O2SAT 95
[2017-07-09] MEDS: IMIPENEM/CILASTATIN IV 500 MG in D5W 100ML IV SCH ×4 (03:30→22:00)
[2017-07-09] MEDS ORDERED: VANCOMYCIN TROUGH ONE (03:30)
[2017-07-09 04:13] LABS: COMPLETE YES; HEMATOCRIT 31.3 % (42-52); IG% 0.3 %; LYMPH % 5.9 %; MEAN CELL VOLUME 93.2 fL (80-100); MEAN CORPUSCULAR HEMOGLOBIN 29.8 pg (25-34); MEAN CORPUSCULAR HGB CONC 31.9 g/dl (32-36); MEAN PLATELET VOLUME 8.9 fL (7.4-10.4); MONO % 4.1 %; NEUT % 89.7 %; PLATELET COUNT 399 K/uL (130-400); RED BLOOD COUNT 3.36 M/uL (4.7-6.1); WHITE BLOOD COUNT 15.29 K/uL (4.8-10.8)
[2017-07-09 04:31] LABS: BUN/CREATININE RATIO 16.4 (10-20); CALCIUM 9.1 mg/dl (8.5-10.1); CREATININE 0.98 mg/dl (0.60-1.40); POTASSIUM 4.2 mmol/L (3.5-5.1)
[2017-07-09] MEDS: VANCOMYCIN INJ 1,750 MG in SODIUM CHLORIDE 0.9% 500ML 500 ML IV SCH (04:31)
[2017-07-09 07:36] VITALS: BP 110/73; PULSE 73; TEMP 36.7; O2SAT 95
[2017-07-09 08:00] VITALS: O2SAT 95
[2017-07-09] MEDS: FERROUS SULFATE 325 MG TAB PO SCH ×2 (08:28→16:40)
[2017-07-09] MEDS: METOPROLOL SUCC 25MG EXT REL TAB PO SCH ×2 (08:29→21:18)
[2017-07-09] MEDS: COLCHICINE 0.6 MG TAB PO SCH (08:30)
[2017-07-09] MEDS: ALLOPURINOL 100 MG TAB PO SCH (08:31)
[2017-07-09] MEDS: CYANOCOBALAMIN 500 MCG TAB (VIT B-12) PO SCH (08:31)
--- NOTE | 2017-07-09 08:45 | Pharmacy Progress Note ---
Pharmacy Abx Dose Progress Nt Date of Service Jul 09, 2017. Pharmacy Dosing Scope The patient is currently receiving the following antimicrobial agents per Pharmacy consult: Vancomycin 1750 mg IV every 12 hours Objective Height (Feet): 6 Height (Inches): 4.00 Weight (Kilograms): 113.100 Vital Signs (Past 12Hrs) Vital Signs Past 12 Hours Date Time Temp Pulse Resp B/P (MAP) Pulse Ox O2 Delivery O2 Flow Rate FiO2 07/09/17 07:36 36.7 73 18 110/73 (85) 95 Room Air 07/08/17 23:35 Room Air 07/08/17 22:48 36.9 87 18 115/75 (88) 95 Room Air Lab Results (24Hrs) Item Value Date Time Vancomycin Level Trough 22.2 mcg/ml 07/09/17 0346 Laboratory Tests (24 Hours) Test 07/09/17 03:46 White Blood Count 15.29 K/uL (4.8-10.8) H Red Blood Count 3.36 M/uL (4.7-6.1) L Hemoglobin 10.0 g/dL (14.0-18.0) L Hematocrit 31.3 % (42-52) L Mean Corpuscular Volume 93.2 fL (80-100) Mean Corpuscular Hemoglobin 29.8 pg (25-34) Mean Corpuscular Hemoglobin Concent 31.9 g/dl (32-36) L Platelet Count 399 K/uL (130-400) Mean Platelet Volume 8.9 fL (7.4-10.4) Neutrophils (%) (Auto) 89.7 % Lymphocytes (%) (Auto) 5.9 % Monocytes (%) (Auto) 4.1 % Eosinophils (%) (Auto) 0.0 % Basophils (%) (Auto) 0.0 % Neutrophils # (Auto) 13.71 K/uL (1.4-6.5) H Lymphocytes # (Auto) 0.90 K/uL (1.2-3.4) L Monocytes # (Auto) 0.63 K/uL (0.11-0.59) H Eosinophils # (Auto) 0.00 K/uL (0-0.5) Basophils # (Auto) 0.00 K/uL (0-0.2) Micro Results Date/Time Source Procedure Growth Status 07/07/17 17:43 Blood Blood Culture - Preliminary NO GROWTH TO DATE. Resulted 07/07/17 17:42 Blood Blood Culture - Preliminary NO GROWTH TO DATE. Resulted Risk Factors for Resistance * Hospitalization for 48 hours or more within the past 90 days * History of infection with a multidrug-resistant organism: ESBL (urine, ); BC x 1 on 06/23/17 --> did not state ESBL on results * Antimicrobial use within the last 90 days: Cipro (po), Vanc, Zosyn Assessment & Plan Assessment 66 year old male receiving IV Vancomycin and Primaxin for treatment of L ankle cellulitis vs. UTI vs. prostatitis Day # 3 of antimicrobial therapy Plan Vancomycin IV * Trough level of 22.2 mcg/mL (appropriately drawn) is supratherapeutic. Of note, this was an early level drawn prior to steady state; actual Css trough may be even higher. Patient already received 1750mg dose by the time level was evaluated. Therefore, will extend next dose to allow time for Vancomycin to fall below supratherapeutic concentration. * Change to 1250 mg (~11mg/kg) IV every 12 hours. This is a ~28% dose reduction and should achieve a lower trough level. Renal function actually continues to improve, therefore surprised that level was high. * Goal trough level for cellulitis vs UTI vs prostatitis : ~15 mcg/mL * Trough level ordered for: 07/11 @ 1130 (prior to 4th dose and should be reflective of steady state) Pharmacy will continue to follow and will adjust dose/frequency as necessary. Thank you.
[2017-07-09] MEDS: DOCUSATE SODIUM 100 MG CAP PO SCH ×2 (09:04→21:18)
--- NOTE | 2017-07-09 11:17 | Progress Note ---
Subjective Date of Service: Jul 09, 2017. Subjective Pt evaluation today including: conversation w/ patient, conversation w/ family , physical exam, chart review, lab review, review of studies, review of inpatient medication list Feeling much better, no more pain, no fever and chill, right ankle swelling is improved, erythema has gone, Problem List Medical Problems: (1) Anemia Status: Acute (2) Cellulitis Status: Acute (3) Cellulitis of right ankle Status: Acute (4) Dehydration Status: Acute (5) DVT, lower extremity Status: Acute (6) Positive Lyme disease serology Status: Acute (7) UTI (urinary tract infection) Status: Acute (8) Weakness Status: Acute Review of Systems Constitutional: + weakness, + fatigue, No fever, No chills, No sweats, No weight loss, No problem reported Eyes: No worsening of vision, No eye pain, No redness, No discharge, No diplopia ENT: No hearing loss, No unusual epistaxis, No nasal symptoms, No sore throat, No tinnitus, No dental problems, No trouble swallowing Respiratory: No cough, No sputum, No wheezing, No shortness of breath, No dyspnea on exertion, No dyspnea at rest, No hemoptysis Cardiac: No chest pain, No orthopnea, No PND, No edema, No claudication, No palpitations Abdomen: No pain, No nausea, No vomiting, No diarrhea, No constipation Musculoskeletal: + swelling (right ankle swelling is better, no more red), No muscle pain, No calf pain Male : No dysuria, No urinary frequency, No incontinence, No nocturia more than once/night, No slowing stream, No hematuria Neurologic: No memory loss, No paralysis, No weakness, No numbness/tingling, No vertigo, No balance problems Psychiatric: No depression symptoms, No anhedonism, No anxiety, No insomnia, No substance abuse Heme: No abnormal bleeding/bruising, No clotting problems, No swollen lymph nodes, No night sweats Endo: No fatigue, No excessive thirst, No excessive urination Skin: No rash, No itch, No new/changing skin lesions, No color change, No bleeding Objective Vital Signs Date Time Temp Pulse Resp B/P (MAP) Pulse Ox O2 Delivery O2 Flow Rate FiO2 07/09/17 08:00 95 Room Air 07/09/17 07:36 36.7 73 18 110/73 (85) 95 Room Air 07/08/17 23:35 Room Air 07/08/17 22:48 36.9 87 18 115/75 (88) 95 Room Air 07/08/17 19:51 Room Air 07/08/17 16:00 Room Air 07/08/17 15:17 36.8 92 18 121/80 (94) 95 Room Air Physical Exam General Appearance: WD/WN, no apparent distress, + pertinent finding ( generally looks better) Eyes: normal inspection, PERRL, EOMI, sclerae normal ENT: normal ENT inspection, hearing grossly normal, pharynx normal Neck: supple, no adenopathy, thyroid normal, no JVD, no carotid bruits, trachea midline Respiratory/Chest: chest non-tender, normal breath sounds, no respiratory distress, no accessory muscle use, + decreased breath sounds Cardiovascular: regular rate, rhythm, no edema, no gallop, no JVD, no murmur Abdomen: normal bowel sounds, non tender, soft, no organomegaly, no pulsatile mass Extremities: normal inspection, no pedal edema, no calf tenderness, normal capillary refill, pelvis stable, + pertinent finding (right nasal ankle swelling is much better and then yesterday, no increase edema, minimal tender, toes in bilateral feet has no open wounds) 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, no motor/sensory deficits, alert, normal mood/affect, oriented x 3 Skin: normal color, warm/dry, no rash Lymphatic: no adenopathy Laboratory Results Last 24 Hours Test 07/09/17 03:46 White Blood Count 15.29 K/uL Red Blood Count 3.36 M/uL Hemoglobin 10.0 g/dL Hematocrit 31.3 % Mean Corpuscular Volume 93.2 fL Mean Corpuscular Hemoglobin 29.8 pg Mean Corpuscular Hemoglobin Concent 31.9 g/dl Platelet Count 399 K/uL Mean Platelet Volume 8.9 fL Neutrophils (%) (Auto) 89.7 % Lymphocytes (%) (Auto) 5.9 % Monocytes (%) (Auto) 4.1 % Eosinophils (%) (Auto) 0.0 % Basophils (%) (Auto) 0.0 % Neutrophils # (Auto) 13.71 K/uL Lymphocytes # (Auto) 0.90 K/uL Monocytes # (Auto) 0.63 K/uL Eosinophils # (Auto) 0.00 K/uL Basophils # (Auto) 0.00 K/uL RDW Standard Deviation 50.7 fL RDW Coefficient of Variation 15.0 % Immature Granulocyte % (Auto) 0.3 % Immature Granulocyte # (Auto) 0.05 K/uL Sodium Level 140 mmol/L Potassium Level 4.2 mmol/L Chloride Level 108 mmol/L Carbon Dioxide Level 25 mmol/L Anion Gap 7.0 mmol/L Blood Urea Nitrogen 16 mg/dl Creatinine 0.98 mg/dl Est Creatinine Clear Calc Drug Dose 100.7 ml/min Estimated GFR () 92.1 Estimated GFR (Non- 79.5 BUN/Creatinine Ratio 16.4 Random Glucose 147 mg/dl Calcium Level 9.1 mg/dl Magnesium Level 2.0 mg/dl Vancomycin Level Trough 22.2 mcg/ml Assessment and Plan 66 y/o M admitted possible UTI proctitis and sepsis on 07/07/2017 Hx gout, PAF, iron-deficient anemia, malabsorption syndrome, DVT/PE, L hip replacement 06/11, Per report , Pt was admitted 06/23 with urosepsis and remained hospitalized for 5 days. Cultures proved + for E. coli. He was D/Cd to complete a 2 week course of Cipro. fever with leukocytosis , possible sepsis , likely from possible sources likely from UTI, patient reported urologist did prostate examination "the prostate size was normal and there was no tender", therefore I don't believe there is proctitis now UTI with prostatitis upon admission, with history of Escherichia coli UTI and bacteremia Improves on iv abx of Primaxin, Other sources of infection possible from recent hip replacement, hospitalization for E coli sepsis associated with possible urinary tract infection, now with recurrent fevers. Mild increase in liver enzymes and bilirubin, possible occult cholecystitis, is checking right upper quadrant ultrasound, and follow-up liver function test. possible bacteremia with seeding of ankle in toe, f/u blood culture results. Infectious disease on the case R ankle red swelling, possible gout flaring, or cellulitis, I case,, responds well to add oral prednisone L toes red, swollen, has totally resolved, and is consistent with gout Continue current medication Urinary hesitancy, cont IVF and Flomax , urology saw the patient, I advise patient to follow-up with urologist for further evaluation such as cystoscopy, because of recurrent UTI and sepsis PAF - currently sinus tach - wearing halter for 1 mo, no more tachycardia Anemia - Hb appears stable - continue iron Malabsorption - will provide protein supplements, folate, B12, iron as prescribed - pending a GI eval next wk Full code - Coumadin prophylaxis Continue current care, discussed with patient and about the condition and care plan, answered all questions Continued [facility] stay due to: multiple IV medications needed Discharge planning: home
--- NOTE | 2017-07-09 12:39 | Progress Note ---
Progress Note Date of Service Jul 09, 2017. Progress Note Patient is afebrile vital signs are stable He offers no complaints Abdomen is soft nontender Patient says since starting the Flomax he is voiding much better and is pleased with the results He did have an elevated PSA of 12 although this was done possibly around the time that he had an infection he says he had a negative biopsy done elsewhere PSA of 9 After discharge I would recheck the PSA He should continue on Flomax
[2017-07-09 14:51] VITALS: BP 128/70; PULSE 96; TEMP 36.8; O2SAT 94
[2017-07-09 16:00] VITALS: O2SAT 94
[2017-07-09] MEDS: WARFARIN SOD 10 MG TAB PO SCH (16:39)
--- NOTE | 2017-07-09 21:01 | DIAGNOSTIC IMAGING REPORT ---
ABDOMINAL ULTRASOUND, RIGHT UPPER QUADRANT HISTORY: Fever and sepsis associated with abnormal liver function tests. COMPARISON: Right upper quadrant ultrasound February 25, 2013. FINDINGS: This study is compromised by suboptimal penetration. Hepatic echogenicity is mildly increased. No hepatic lesions are identified although sensitivity is diminished on this examination. The pancreas is obscured by overlying bowel gas. No gallstones are identified. There is no gallbladder wall thickening. No biliary ductal dilatation is identified. Common bile duct measures 4 mm in caliber. There is no right hydronephrosis. IMPRESSION: 1. No gallstones or biliary ductal dilatation. 2. Possible fatty infiltration of the liver. 3. Obscured pancreas due to overlying bowel gas. Electronically signed by: Farhat Jonas M.D. 07/09/2017 9:00 PM Dictated Date/Time: 07/09/2017 8:58 PM
[2017-07-09] MEDS: GABAPENTIN 100 MG CAP PO SCH (21:18)
[2017-07-09] MEDS ORDERED: VANCOMYCIN INJ 1,250 MG in SODIUM CHLORIDE 0.9% 250ML 250 ML IV SCH (22:00)
[2017-07-10] VITALS: O2SAT 94
[2017-07-10] MEDS ORDERED: VANCOMYCIN INJ 1,250 MG in SODIUM CHLORIDE 0.9% 250ML 250 ML IV SCH ×2
[2017-07-10] MEDS: IMIPENEM/CILASTATIN IV 500 MG in D5W 100ML IV SCH ×2 (03:10→09:49)
[2017-07-10 06:31] LABS: BASO % 0.2 %; BASO ABS # 0.02 K/uL (0-0.2); COMPLETE YES; HEMATOCRIT 32.8 % (42-52); IG% 0.3 %; LYMPH % 8.2 %; LYMPH ABS # 0.95 K/uL (1.2-3.4); MEAN CELL VOLUME 93.7 fL (80-100); MEAN CORPUSCULAR HEMOGLOBIN 30.3 pg (25-34); MEAN CORPUSCULAR HGB CONC 32.3 g/dl (32-36); MEAN PLATELET VOLUME 9.5 fL (7.4-10.4); MONO % 5.6 %; NEUT % 85.7 %; PLATELET COUNT 413 K/uL (130-400); WHITE BLOOD COUNT 11.52 K/uL (4.8-10.8)
[2017-07-10 06:36] LABS: INR 2.9 (0.9-1.1); PROTHROMBIN TIME (PATIENT) 32.7 SECONDS (9.0-12.0)
[2017-07-10 06:57] LABS: BUN/CREATININE RATIO 13.9 (10-20); CALCIUM 8.8 mg/dl (8.5-10.1); CREATININE 1.09 mg/dl (0.60-1.40); MAGNESIUM 1.9 mg/dl (1.8-2.4); POTASSIUM 3.6 mmol/L (3.5-5.1)
[2017-07-10 07:03] VITALS: BP 139/91; PULSE 72; TEMP 36.6; O2SAT 94
[2017-07-10 08:00] VITALS: O2SAT 94
[2017-07-10] MEDS: CYANOCOBALAMIN 500 MCG TAB (VIT B-12) PO SCH (08:08)
[2017-07-10] MEDS: METOPROLOL SUCC 25MG EXT REL TAB PO SCH (08:09)
[2017-07-10] MEDS: DOCUSATE SODIUM 100 MG CAP PO SCH (08:09)
[2017-07-10] MEDS: COLCHICINE 0.6 MG TAB PO SCH (08:09)
[2017-07-10] MEDS: FERROUS SULFATE 325 MG TAB PO SCH (08:10)
[2017-07-10] MEDS: ALLOPURINOL 100 MG TAB PO SCH (08:10)
--- NOTE | 2017-07-10 09:20 | Progress Note ---
Subjective Date of Service: Jul 10, 2017. Subjective Pt evaluation today including: conversation w/ patient, chart review, lab review Voiding: no voiding problems 66 yo male with BPH with LUTS, UTI, and elevated PSA. Pt reports his voiding has greatly improved with the Flomax. Denies dysuria or hematuria today. Blood cultures noted to be negative. No UC&S performed. Problem List Medical Problems: (1) Anemia Status: Acute (2) Cellulitis Status: Acute (3) Cellulitis of right ankle Status: Acute (4) Dehydration Status: Acute (5) DVT, lower extremity Status: Acute (6) Positive Lyme disease serology Status: Acute (7) UTI (urinary tract infection) Status: Acute (8) Weakness Status: Acute Review of Systems Constitutional: No fever, No chills Respiratory: No shortness of breath Cardiac: No chest pain Abdomen: No pain, No nausea, No vomiting Male : No hematuria Heme: No abnormal bleeding/bruising Objective Vital Signs Date Time Temp Pulse Resp B/P (MAP) Pulse Ox O2 Delivery O2 Flow Rate FiO2 07/10/17 07:03 36.6 72 18 139/91 (107) 94 Room Air 07/10/17 00:00 94 Room Air 07/09/17 19:44 Room Air 07/09/17 16:00 94 Room Air 07/09/17 14:51 36.8 96 20 128/70 (89) 94 Room Air Physical Exam General Appearance: no apparent distress Eyes: normal inspection ENT: hearing grossly normal Neck: no JVD Respiratory/Chest: no respiratory distress, no accessory muscle use Cardiovascular: no JVD Extremities: normal inspection Neurologic/Psychiatric: alert, normal mood/affect, oriented x 3 Skin: normal color Laboratory Results Last 24 Hours Test 07/10/17 05:49 White Blood Count 11.52 K/uL Red Blood Count 3.50 M/uL Hemoglobin 10.6 g/dL Hematocrit 32.8 % Mean Corpuscular Volume 93.7 fL Mean Corpuscular Hemoglobin 30.3 pg Mean Corpuscular Hemoglobin Concent 32.3 g/dl Platelet Count 413 K/uL Mean Platelet Volume 9.5 fL Neutrophils (%) (Auto) 85.7 % Lymphocytes (%) (Auto) 8.2 % Monocytes (%) (Auto) 5.6 % Eosinophils (%) (Auto) 0.0 % Basophils (%) (Auto) 0.2 % Neutrophils # (Auto) 9.87 K/uL Lymphocytes # (Auto) 0.95 K/uL Monocytes # (Auto) 0.65 K/uL Eosinophils # (Auto) 0.00 K/uL Basophils # (Auto) 0.02 K/uL RDW Standard Deviation 51.0 fL RDW Coefficient of Variation 15.1 % Immature Granulocyte % (Auto) 0.3 % Immature Granulocyte # (Auto) 0.03 K/uL Prothrombin Time 32.7 SECONDS Prothromb Time International Ratio 2.9 Sodium Level 140 mmol/L Potassium Level 3.6 mmol/L Chloride Level 107 mmol/L Carbon Dioxide Level 24 mmol/L Anion Gap 9.0 mmol/L Blood Urea Nitrogen 15 mg/dl Creatinine 1.09 mg/dl Est Creatinine Clear Calc Drug Dose 90.5 ml/min Estimated GFR () 81.0 Estimated GFR (Non- 69.9 BUN/Creatinine Ratio 13.9 Random Glucose 143 mg/dl Calcium Level 8.8 mg/dl Magnesium Level 1.9 mg/dl Total Bilirubin 0.7 mg/dl Direct Bilirubin 0.1 mg/dl Aspartate Amino Transf (AST/SGOT) 38 U/L Alanine Aminotransferase (ALT/SGPT) 29 U/L Alkaline Phosphatase 120 U/L Total Protein 6.9 gm/dl Albumin 2.5 gm/dl Assessment and Plan A/P: BPH with LUTS, UTI, elevated PSA AFVSS. Voiding improved. Continue Flomax. Will place Rx on chart for discharge. Recommend transitioning to 2-4 weeks of oral abx such as Cipro to cover for possible prostatitis (previous UC&S on last admission was sensitive and he was previously discharged home on Bactrim DS). Will arrange for outpatient f/u with Dr. Alvarez in 1-2 weeks. Will need PSA repeated once infection has been adequately treated. Pt OK for d/c home from [facility]. Continued [facility] stay due to: multiple IV medications needed Discharge planning: home
[2017-07-10] MEDS ORDERED: TAMS0.4C38 PO (09:23)
--- NOTE | 2017-07-10 12:35 | Discharge Instructions ---
Discharge Instructions Date of Service Jul 10, 2017. Admission Reason for Admission: Fever, Weakness Discharge Discharge Diagnosis / Problem: Gout Discharge Goals Goal(s): Decrease discomfort, Improve function, Increase independence Activity Recommendations Activity Limitations: resume your previous activity . Instructions / Follow-Up Instructions / Follow-Up Gout: - Recommend continuing steroids with Prednisone 20 mg twice a day for two more days. - Continue your Allopurinol and Colchicine as previously prescribed. UTI and Prostatitis: - You will continue on Ciprofloxacin 500 mg twice a day for 14 days - You will be given a prescription for Flomax and will follow-up with Urology as they have scheduled. Current Hospital Diet Patient's current hospital diet: Regular Diet Discharge Diet Recommended Diet: Regular Diet Pending Studies Studies pending at discharge: no Medical Emergencies . Who to Call and When: Medical Emergencies: If at any time you feel your situation is an emergency, please call 911 immediately. . Non-Emergent Contact Non-Emergency issues call your: Primary Care Provider Call Non-Emergent contact if: you have a fever, your pain is concerning you, you have any medication questions . . "Provider Documentation" section prepared by Bailey Kothari. . VTE Core Measure Inpt VTE Proph given/why not?: Warfarin (Coumadin)
[2017-07-10] MEDS ORDERED: PRD20 PO (13:12)
[2017-07-10] MEDS ORDERED: CPR500 PO (13:21)
[2017-07-10 13:42] VITALS: BP 139/91; PULSE 72; TEMP 36.6; O2SAT 94
--- NOTE | 2017-07-10 16:20 | Discharge Summary ---
Discharge Summary Date of Service Jul 10, 2017. (Bailey Kothari PA-C) Discharge Summary Admission Date: Jul 07, 2017 at 20:04 Discharge Date: Jul 10, 2017 Discharge Disposition: Home with services Principal Diagnosis: Gout and Possible Prostatitis Problems/Secondary Diagnoses: 1) Gout 2) Urinary Hesitancy 3) Iron-deficient Anemia 4) Malabsorption Syndrome - undefined - pending GI evaluation - deficient in Iron, Folate, B12, protein 5) Paroxysmal AF - treated with Coumadin 6) DVT/PE 7) L hip replacement 06/11 8) R ankle surgery - hardware placement 9) Sinus tachycardia Immunizations: Have You Had Influenza Vaccine: N/A History of Tetanus Vaccine?: No History of Pneumococcal: No History of Hepatitis B Vaccine: Unknown Procedures: RIGHT ANKLE 3 VIEWS FINDINGS: 3 views of the right ankle are compared to study dated 12/07/2016. The skeletal structures are osteopenic. No fracture is seen. The ankle mortise is intact. Degenerative spurring is seen along the dorsal aspect of the tarsal bones. No large joint effusion is identified. Soft tissue swelling is present around the ankle. IMPRESSION: 1. Soft tissue swelling with no radiographic evidence of right ankle fracture. 2. Osteopenia and arthritic change as above. ABDOMINAL ULTRASOUND, RIGHT UPPER QUADRANT FINDINGS: This study is compromised by suboptimal penetration. Hepatic echogenicity is mildly increased. No hepatic lesions are identified although sensitivity is diminished on this examination. The pancreas is obscured by overlying bowel gas. No gallstones are identified. There is no gallbladder wall thickening. No biliary ductal dilatation is identified. Common bile duct measures 4 mm in caliber. There is no right hydronephrosis. IMPRESSION: 1. No gallstones or biliary ductal dilatation. 2. Possible fatty infiltration of the liver. 3. Obscured pancreas due to overlying bowel gas. Consultations: 1. Infectious Disease 2. Urology (Bailey Kothari PA-C) Medication Reconciliation New Medications: Ciprofloxacin (Ciprofloxacin HCl) 500 Mg Tab 500 MG PO BID for 14 Days, #28 TABS Tamsulosin Hcl (Flomax) 0.4 Mg Cap 0.4 MG PO HS, #30 CAP 11 Refills Prednisone (Prednisone) 20 Mg Tab 20 MG PO BID for 2 Days, #4 TAB Continued Medications: Allopurinol (Zyloprim) 100 Mg Tab 100 MG PO QAM, TAB Colchicine (Colchicine) 0.6 Mg Tab 0.6 MG PO QAM, TAB Cyanocobalamin (Vitamin B12) 1,000 Mcg Tab 2000 MCG PO DAILY Docusate Sodium (Colace) 100 Mg Cap 100 MG PO BID Ferrous Sulfate (Ferrous Sulfate) 325 Mg Tab 325 MG PO BIDM Folic Acid (Folvite) 1 Mg Tab 1 MG PO QAM, TAB Gabapentin (Neurontin) 100 Mg Cap 100 MG PO HS, CAP Metoprolol Succinate (Metoprolol Succinate ER) 25 Mg Tabcr 25 MG PO BID Oxycodone HCl (Oxycodone HCl) 5 Mg Tab 5 MG PO Q6H PRN for Pain Warfarin Sodium (Warfarin Sodium) 5 Mg Tab 7.5 MG PO 5XWK TAKE 7.5 MG EVERY MONDAY,MONDAY,MONDAY,MONDAY AND MONDAY OR OTHERWISE DIRECTED TO TAKE BY ANTICOAGULATION CLINIC/MD Warfarin Sodium (Warfarin Sodium) 5 Mg Tab 10 MG PO 2XWK, TAB TAKE 10 MG EVERY MONDAY AND MONDAY OR OTHERWISE DIRECTED TO TAKE BY ANTICOAGULATION CLINIC/MD Discharge Exam Review of Systems: Constitutional: No fever, No chills Respiratory: No cough, No shortness of breath Cardiovascular: No chest pain, No palpitations Abdomen: No pain, No nausea, No vomiting, No diarrhea, No constipation Musculoskeletal: + swelling (R ankle - improving), No calf pain Genitourinary - Male: No dysuria, No urinary hesitancy Neurologic: No numbness/tingling Hematologic / Lymphatic: No abnormal bleeding/bruising Physical Exam: General Appearance: WD/WN, no apparent distress Eyes: sclerae normal ENT: hearing grossly normal Neck: supple, no JVD, trachea midline Respiratory/Chest: lungs clear, normal breath sounds, no respiratory distress, no accessory muscle use Cardiovascular: regular rate, rhythm, no gallop, no murmur Abdomen / GI: normal bowel sounds, non tender, soft Extremities: no calf tenderness, + swelling (non-pitting edema R ankle) Neurologic/Psychiatric: alert, oriented x 3 Skin: normal color, warm/dry (Bailey Kothari, MINO) Hospital Course ADMISSION: 66 y/o M Hx gout, PAF, iron-deficient anemia, malabsorption syndrome , DVT/PE, L hip replacement 06/11. Pt was admitted 06/23 with urosepsis and remained hospitalized for 5 days. Cultures proved + for E. coli. He was D/Cd to complete a 2 week course of Cipro. He developed pain and inflammation of his R lat ankle in addition to two toes of his L foot approximately 2 days prior. He then developed progressive weakness, fever and urinary hesitancy over the course of the day. A fever and marked leukocytosis were noted on arrival to the hospital. Initial UA is negative. Uric acid is WNL. AN XR of the R ankle is consistent with inflammation and otherwise nonspecific. We do not currently have a definitive source of infection. He denies SOB, CP, N/V/D and does not have pain with urination. During his recent admission, the pt was exhibiting episodes of tachycardia which appeared to be sinus. He reports being borderline tachycardic since leaving the hospital and was sent home with a halter monitor per his PCP. HOSPITAL COURSE: Mr. Alfred was admitted for Possible Prostatitis and Sepsis. He presented febrile and with leukocytosis. He was recently admitted and finished a course of Ciprofloxacin and reports improvement but started to decline after Ciprofloxacin was complete. Prostate exam with normal without tenderness but concern for undertreated prostatitis remains. Will continue Ciprofloxacin 500 mg BID x 14 more days. Urology consultation placed and Flomax was initiated and recommend outpatient follow-up. R ankle pain, erythema, and edema appears to be gout related even in the setting of normal uric acid. He positively responded to oral prednisone and will complete a course for steroids and continue Allopurinol and Colchicine. R ankle pain improved and he is afebrile. He will be D/C'd home with home health services. Total Time Spent: Greater than 30 minutes This includes examination of the patient, discharge planning, medication reconciliation, and communication with other providers. (Bailey Kothari, DENC) i personally examined pt and verified all eaton points w Radha Kothari PAC feeling better wants to go home walked well no fevers vitals noted nad breathing unlabored ankle with no tenderness/erythema/effusion fever/joint pain - suspect was all gout. doubt septic joint given rapid improvement and no surgical intervetion/etc -- d/w pt and if he were to have a recurrence after stopping abx would need to pursue that as dx of exclusion but unlikely to occur fever/LUTS - suspect mostly/entirely BPH but as above noted hard to definitively r/o prostatitis. discussed risks/benefits of treatment vs watchful waiting and all are in agreement on treatment at this time stable for home, outpt f/u (Fazal Reddy D.O.) Discharge Instructions Please refer to the electronic Patient Visit Report (Discharge Instructions) for additional information. (Bailey Kothari, PA-C) Additional Copies To Cristal Joyner M.D.
[2017-07-11] MEDS ORDERED: VANCOMYCIN TROUGH ONE ×2 (09:30→11:30)
== END 2017-07-10 13:45 | disposition home health service (06) | DRG 872 ==
LOC: C.EDB 17:03 → C.MED 20:04 → UNDOADMIN 20:04 → ENRESERV 20:13
PROVIDERS: ADMIT Internal Medicine; ATTEND Family Medicine
DX: A41.9 Sepsis, unspecified organism (principal); N39.0 Urinary tract infection, site not specified; K90.9 Intestinal malabsorption, unspecified; N41.9 Inflammatory disease of prostate, unspecified; N40.1 Benign prostatic hyperplasia with lower urinary tract symptoms; R39.11 Hesitancy of micturition; R97.20 Elevated prostate specific antigen [PSA]; I48.0 Paroxysmal atrial fibrillation; D50.9 Iron deficiency anemia, unspecified; M10.9 Gout, unspecified; Z87.440 Personal history of urinary (tract) infections; Z86.711 Personal history of pulmonary embolism; Z86.718 Personal history of other venous thrombosis and embolism; Z96.642 Presence of left artificial hip joint; Z79.01 Long term (current) use of anticoagulants; Z79.899 Other long term (current) drug therapy

== ENCOUNTER → 2017-07-07 | Outpatient (CLI) | payer OTHER ==
[~2017-07-07] MED LIST changes: -ACET-24 PO; +CPR500 PO; +CYAN100020 PO; +CYCL5TAB PO; +DOCU-94 PO; -ENOX40IN SQ; +FERR325T5 PO; +FLV1 PO; +FOLI1TAB7 PO; +FRRS300 PO; +OXYC-609 PO; +PRD20 PO; +TAMS0.4C38 PO; +TPRSR/25 PO; +VTMB12 PO; +WARF-246 PO
[2017-07-07 15:26] LABS: BASO % 0.2 %; BASO ABS # 0.03 K/uL (0-0.2); EOS % 0.5 %; IG% 0.8 %; LYMPH % 10.5 %; LYMPH ABS # 1.86 K/uL (1.2-3.4); MEAN CELL VOLUME 94.1 fL (80-100); MEAN CORPUSCULAR HEMOGLOBIN 30.9 pg (25-34); MEAN PLATELET VOLUME 9.1 fL (7.4-10.4); MONO % 12.1 %; NEUT % 75.9 %; PLATELET COUNT 443 K/uL (130-400); RED BLOOD COUNT 3.72 M/uL (4.7-6.1); WHITE BLOOD COUNT 17.79 K/uL (4.8-10.8)
[2017-07-07 15:29] LABS: URINE APPEARANCE CLEAR (CLEAR); URINE BILIRUBIN NEG (NEG); URINE COLOR YELLOW; URINE EPITHELIAL CELL AUTO >30 /lpf (0-5); URINE NITRITE NEG (NEG); URINE SPECIFIC GRAVITY 1.021 (1.000-1.030); UROBILINOGEN NEG (NEG)
[2017-07-07 15:31] LABS: MANUAL MICROSCOPIC REQUIRED? NO; REVIEW REQ? NO
[2017-07-07 15:38] LABS: COMPLETE YES; MEAN CORPUSCULAR HGB CONC 32.9 g/dl (32-36)
== END | disposition home or self-care (01) ==
LOC: C.LABSPEC 14:50
PROVIDERS: ATTEND Physician Assistant
DX: M10.9 Gout, unspecified (principal); N39.0 Urinary tract infection, site not specified

== ENCOUNTER → 2017-07-17 | Outpatient (CLI) | payer OTHER ==
[~2017-07-17] MED LIST changes: +CYAN100020 PO; -CYCL5TAB PO; +FERR325T5 PO; -FLV1 PO; +FOLI1TAB7 PO; -FRRS300 PO; -METO25TA3 PO; +OXYC-609 PO; +PRD20 PO; -RXC5 PO; +TAMS0.4C38 PO; +TPRSR/25 PO; -VTMB12 PO; +WARF-246 PO; -WARF10TA4 PO; -WARF7.5T4 PO
[2017-07-17 15:34] LABS: BASO % 0.3 %; BASO ABS # 0.03 K/uL (0-0.2); COMPLETE YES; EOS % 3.6 %; HEMATOCRIT 41.8 % (42-52); IG% 1.3 %; LYMPH % 21.1 %; LYMPH ABS # 2.23 K/uL (1.2-3.4); MEAN CELL VOLUME 92.9 fL (80-100); MEAN CORPUSCULAR HEMOGLOBIN 30.7 pg (25-34); MEAN PLATELET VOLUME 10.2 fL (7.4-10.4); MONO % 14.1 %; NEUT % 59.6 %; PLATELET COUNT 334 K/uL (130-400); WHITE BLOOD COUNT 10.56 K/uL (4.8-10.8)
[2017-07-17 15:42] LABS: URINE APPEARANCE CLEAR (CLEAR); URINE BILIRUBIN NEG (NEG); URINE COLOR YELLOW; URINE NITRITE NEG (NEG); UROBILINOGEN NEG (NEG)
[2017-07-17 15:45] LABS: MANUAL MICROSCOPIC REQUIRED? NO; REVIEW REQ? NO
[2017-07-17 15:51] LABS: INR 2.2 (0.9-1.1); PROTHROMBIN TIME (PATIENT) 24.5 SECONDS (9.0-12.0)
[2017-07-17 16:07] LABS: ALB/GLOB RATIO 0.7 (0.9-2); ALT/SGPT 24 U/L (12-78); AST/SGOT 24 U/L (15-37); BLOOD UREA NITROGEN 15 mg/dl (7-18); BUN/CREATININE RATIO 11.4 (10-20); C-REACTIVE PROTEIN 1.85 mg/dl (0-0.29); CALCIUM 9.2 mg/dl (8.5-10.1); CARBON DIOXIDE 26 mmol/L (21-32); CHLORIDE 103 mmol/L (98-107); GLUCOSE 105 mg/dl (70-99); POTASSIUM 3.9 mmol/L (3.5-5.1); SODIUM 136 mmol/L (136-145); URIC ACID 6.2 mg/dl (2.6-7.2)
[2017-07-17 16:09] LABS: ALKALINE PHOSPHATASE 124 U/L (45-117)
[2017-07-22 06:32] LABS: ALBUMIN % 20.56 %; ALPHA-2-GLOBULIN % 26.72 %; BETA GLOBULIN % 22.99 %; CREATININE UR 194 MG/DL (20-370); GAMMA GLOBULIN 1.5 G/DL (0.8-1.7); GAMMA GLOBULIN % 23.92 %; IGA SERUM 409 mg/dL (81-463); TIS TRANS IGA 1 U/mL (<4); TOTAL PROTEIN 7.2 G/DL (6.2-8.3)
== END | disposition home or self-care (01) ==
LOC: C.LAB1850 13:52
PROVIDERS: ATTEND Internal Medicine
DX: Z00.00 Encounter for general adult medical examination without abnormal findings (principal); I26.99 Other pulmonary embolism without acute cor pulmonale; M10.9 Gout, unspecified; D64.9 Anemia, unspecified; E88.09 Other disorders of plasma-protein metabolism, not elsewhere classified

== ENCOUNTER → 2018-01-17 | Outpatient (CLI) | payer OTHER ==
[~2018-01-17] MED LIST changes: -FOLI1TAB7 PO; +FOLI1TAB8 PO; +OPTIRAY 320 IV PRN
--- NOTE | 2018-01-17 11:43 | DIAGNOSTIC IMAGING REPORT ---
CT SCAN OF THE ABDOMEN AND PELVIS WITH IV CONTRAST CLINICAL HISTORY: Left lower quadrant abdominal pain. COMPARISON STUDY: Abdominal CT dated 12/05/2011. TECHNIQUE: Following the IV administration of 94 cc of Optiray 320, CT scan of the abdomen and pelvis is performed from the lung bases to the proximal femora. Images are reviewed in the axial, sagittal, and coronal planes. IV contrast was administered without complication. A dose lowering technique was utilized adhering to the principles of ALARA. CT DOSE: 1160.31 mGycm FINDINGS: Lung bases: The heart is enlarged and without pericardial effusion. Segmental atelectasis is seen at the lung bases. No airspace consolidation is identified typical for pneumonia and there is no pleural effusion. There is a small hiatal hernia. Liver: The contrast-enhanced liver is normal in size, contour, and attenuation. There is no intrahepatic biliary ductal dilatation. The hepatic veins and portal veins are patent. There is a 1.9 cm low-attenuation lesion identified in the inferior right lobe of the liver on image #184. No additional hepatic lesion is clearly seen. Gallbladder: Unremarkable. Spleen: Normal in size and attenuation. Pancreas: Moderately atrophic and grossly unremarkable. Adrenal glands: Unremarkable. Kidneys: The contrast enhanced kidneys demonstrate mild cortical atrophy and are without hydronephrosis. The kidneys enhance symmetrically. A 1.8 cm cyst is seen in the left kidney. Abdominal vasculature: The abdominal aorta is normal in course and caliber noting mild to moderate atherosclerotic calcification. Bowel: There is mild to moderate sigmoid diverticulosis. No bowel obstruction is identified. There is a 2.1 cm fat attenuation lesion identified along the antimesenteric border of the proximal sigmoid colon seen on image #349. There is surrounding inflammatory change in the appearance is most consistent with epiploic appendagitis. No fluid collection is seen. The appendix is not identified. Peritoneum: There is no intraperitoneal free air or abdominal ascites. There is a fat-containing umbilical hernia. Lymphadenopathy: None. Pelvic viscera: Evaluation of the pelvis is degraded by streak artifact from bilateral hip arthroplasties. The bladder is decompressed and not well assessed. The prostate gland is not well-visualized due to extensive artifact. There is a fat-containing right inguinal hernia. Findings suggest previous left inguinal herniorrhaphy. Skeletal structures: The skeletal structures are osteopenic. There is [id number] lumbosacral spondylosis and scoliosis. No lytic or blastic lesions are seen. IMPRESSION: 1. There is a fat-containing lesion identified along the antimesenteric border of the proximal sigmoid colon with surrounding inflammatory change. The appearance is most consistent with epiploic appendagitis. There are sigmoid diverticula in this region, and although considered much less likely acute diverticulitis is the top differential consideration. 2. No intraperitoneal free air is seen. There is no evidence of abscess. 3. There is a 1.9 cm indeterminant low-attenuation lesion in the right hepatic lobe. This is pathologically indeterminant but was also likely present in 2012. This likely represents a hemangioma. Follow-up with a nonemergent MRI of the liver is recommended for definitive characterization. 4. Cardiomegaly. 5. Additional findings as above. Electronically signed by: Harvey Bunch M.D. 01/17/2018 11:42 AM Dictated Date/Time: 01/17/2018 11:25 AM
[2018-01-17 12:22] LABS: BASO % 0.4 %; BASO ABS # 0.04 K/uL (0-0.2); EOS % 1.7 %; EOS ABS # 0.17 K/uL (0-0.5); HEMATOCRIT 43.8 % (42-52); HEMOGLOBIN 15.1 g/dL (14.0-18.0); IG# 0.04 K/uL (0.00-0.02); LYMPH % 19.1 %; LYMPH ABS # 1.92 K/uL (1.2-3.4); MEAN CELL VOLUME 89.4 fL (80-100); MEAN CORPUSCULAR HEMOGLOBIN 30.8 pg (25-34); MEAN CORPUSCULAR HGB CONC 34.5 g/dl (32-36); MEAN PLATELET VOLUME 10.5 fL (7.4-10.4); MONO % 10.7 %; MONO ABS # 1.08 K/uL (0.11-0.59); NEUT % 67.7 %; PLATELET COUNT 232 K/uL (130-400); RED CELL DISTRIBUTION WIDTH CV 14.2 % (11.5-14.5); RED CELL DISTRIBUTION WIDTH SD 46.7 fL (36.4-46.3); WHITE BLOOD COUNT 10.05 K/uL (4.8-10.8)
[2018-01-17 12:27] LABS: INR 2.9 (0.9-1.1)
== END | disposition home or self-care (01) ==
LOC: C.CTS 09:03
PROVIDERS: ATTEND Internal Medicine
DX: R10.824 Left lower quadrant rebound abdominal tenderness (principal); I48.91 Unspecified atrial fibrillation; Z79.01 Long term (current) use of anticoagulants; N40.1 Benign prostatic hyperplasia with lower urinary tract symptoms